=== PATIENT | male | born 1950 | race Hispanic/Latino ===

== ENCOUNTER 2017-08-08 05:51 | Emergency (ER) | payer MEDICARE, BC | END 2017-08-08 06:48 | disposition home or self-care (01) | LOC: ERS 05:51 | DX: L03.115 Cellulitis of right lower limb (principal); E11.22 Type 2 diabetes mellitus with diabetic chronic kidney disease; I12.0 Hypertensive chronic kidney disease with stage 5 chronic kidney disease or end stage renal disease; N18.6 End stage renal disease; Z87.891 Personal history of nicotine dependence; Z79.82 Long term (current) use of aspirin; Z79.899 Other long term (current) drug therapy | CPT/HCPCS: 99283 ==

== ENCOUNTER 2017-09-25 13:13 | Outpatient (CLI) | payer MEDICARE, BC ==
--- NOTE | 2017-09-25 18:36 | HP ---
DATE OF SERVICE: 09/25/2017 HISTORY OF PRESENT ILLNESS: Mr. Orlando Linares is a very pleasant 66-year-old gentleman who presen ts to the Wound Center for evaluation of an ulceration of the right medial lower leg. The patient is accompanied by his today. The patient was previously seen in the Wound Center in 2004 for righ t and left foot wounds. The patient states that the wound of the right medial lower leg has been pre sent for approximately two months. He states that 2 months ago while lifting a 5-gallon bucket of so il while working in the garden, he inadvertently let the bucket go scraping his right medial lower le g. He states that he inadvertently let the bucket go when the bucket became too heavy. The patient states that he cleaned the ulceration with hydrogen peroxide and then applied an antibiotic ointment. He states that the wound of his right medial lower leg became erythematous. He states that the wou nd appeared to be associated with an infectious process and he had swelling of his right lower leg. The patient states that at this time, he was seen in the Emergency Department and treated with a cour se of p.o. antibiotics for cellulitis. The patient states that 1 week later, he saw Dr. Lee and ar rangements were made for the administration of IV antibiotics at dialysis. The patient states that roosevelt isabel completed the course of IV antibiotics at dialysis approximately 3 weeks ago. The patient states t hat he was seen by Dr. Covarrubias on 09/04/2017 and at this time referred to the Wound Center for further evaluation and treatment. PAST MEDICAL HISTORY: 1. End-stage renal disease. 2. Coronary artery disease. 3. Diabetes mellitus. 4. Hypertension. 5. Secondary hyperparathyroidism. 6. History of gastric ulcer. 7. Chronic anemia. 8. Colon polyps. 9. Peripheral vascular disease. PAST SURGICAL HISTORY: 1. Left and right eye surgery for retinal detachment and diabetic retinopathy. 2. Dialysis access procedures. 3. Right eye cataract surgery. 4. Left knee surgery. 5. I&D of buttock abscess. 6. Left fifth partial ray amputation on 04/28/2009. 7. Right fifth toe ray amputation on 05/10/2009. 8. 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 MEDICATIONS: 1. Coreg. 2. Zoloft. 3. Pravastatin. 4. Plavix. 5. Clonidine. 6. Aspirin. 7. Vision Formula. 8. Coenzyme Q10. 9. Fish oil. 10. Renvela. 11. Fosrenol. ALLERGIES: VANCOMYCIN. SOCIAL HISTORY: Significant for tobacco use of 1/2 of a pack of cigarettes per day for 4-5 years. T he patient states that he stopped smoking 35-40 years ago. The patient admits to the social consumpt ion of alcohol. FAMILY HISTORY: Significant for diabetes mellitus. The patient states that his brother, sister and father were diagnosed with diabetes mellitus. Family history is negative for coronary artery disease . PHYSICAL EXAMINATION: VITAL SIGNS: Temperature 98.1, pulse 66, respirations 19, blood pressure 172/83. Accu-Chek 102. GENERAL: A 66-year-old gentleman lying on table in examination room in no acute distress. HEENT: Normocephalic, atraumatic. NECK: No nuchal rigidity. CHEST: Clear to auscultation. CARDIAC: Regular rate and rhythm. ABDOMEN: Soft. EXTREMITIES: An ulceration of the right medial lower leg is present which measures approximately 1.2 x 1.5 cm. Granulation tissue is present within the wound margins. Necrotic and nonviable tissue pr esent within the wound margins was debrided with an excisional full-thickness debridement with the us e of a curette and scissors. No purulent drainage is associated with the wound. No erythema of the skin surrounding the wound is present. No maceration of the skin of the periwound is noted. A dorsa lis pedis pulse is palpable on the right. No significant edema of the right foot or lower leg is gris reciated on exam today. NEUROLOGIC: Grossly nonfocal. ASSESSMENT AND PLAN: 1. Chronic venous hypertension with ulceration. Silverlon, Webril, and 3M Coban 2-layer compression system will be applied to the ulceration today. The patient has been instructed to keep the matt lalo wrap applied in clinic today clean and dry intact until his followup visit in 1 week. No antibi otics will be prescribed today based upon the appearance of the wound. The patient and his unde rstand and are in agreement with the preceding treatment plan. 2. Diabetes mellitus. The patient's Accu-Chek in clinic today is 102. The patient has been told th at for optimal wound healing, his blood glucoses should remain below 150. 3. End-stage renal disease. 4. Coronary artery disease. 5. Hypertension. 6. Secondary hyperparathyroidism. 7. History of gastric ulcer. 8. Chronic anemia. 9. Colon polyps. 10. Peripheral vascular disease.
== END 2017-09-25 13:14 | disposition home or self-care (01) ==
LOC: WCC 13:13
PROVIDERS: ATTEND Family Medicine
DX: I87.311 Chronic venous hypertension (idiopathic) with ulcer of right lower extremity (principal); E11.622 Type 2 diabetes mellitus with other skin ulcer; L97.819 Non-pressure chronic ulcer of other part of right lower leg with unspecified severity; I12.0 Hypertensive chronic kidney disease with stage 5 chronic kidney disease or end stage renal disease; E11.22 Type 2 diabetes mellitus with diabetic chronic kidney disease; N18.6 End stage renal disease; I25.10 Atherosclerotic heart disease of native coronary artery without angina pectoris; N25.81 Secondary hyperparathyroidism of renal origin; D64.9 Anemia, unspecified; I73.9 Peripheral vascular disease, unspecified; K63.5 Polyp of colon; F17.210 Nicotine dependence, cigarettes, uncomplicated; Z87.19 Personal history of other diseases of the digestive system
CPT/HCPCS: 36416

== ENCOUNTER 2017-10-02 14:25 | Outpatient (CLI) | payer MEDICARE, BC ==
--- NOTE | 2017-10-02 15:52 | PRG ---
DATE OF SERVICE: 10/02/2017 HISTORY: Mr. Orlando Linares is a very pleasant 66-year-old gentleman who presents to the [facility] for evaluation of an ulceration of the right medial lower leg. The patient previously stated payam t the wound of the right medial lower leg had been present for approximately 2 months. Two months pr ior to his visit on 09/25/2017with, while lifting a 5-gallon bucket of soil while working in the [employer], he inadvertently let the bucket go scraping his right medial lower leg. He stated that he inadve rtently let the bucket ago when the back became too heavy. The patient stated that he cleaned the ul ceration with hydrogen peroxide and then applied an antibiotic ointment. He stated that the wound of his right medial lower leg became erythematous. He stated that the wound appeared to be associated with an infectious process and he had swelling of his right lower leg. He stated that at this time h e was seen in the Emergency Department and treated with a course of p.o. antibiotics for cellulitis. The patient stated that one week later, he saw Dr. Lee and arrangements were made for the administ ration of IV antibiotics at dialysis. The patient stated that he completed course of IV antibiotics at dialysis approximately 3 weeks prior to his visit on 09/25/2017. The patient stated that he was s een by Dr. Covarrubias on 09/04/2017 and at this time referred to the Wound Center for further evaluation a nd treatment. After being seen in the Wound Center, Silverlon, Webril, and 3M Coban 2 layer compress ion system were applied to the ulceration. PHYSICAL EXAMINATION: VITAL SIGNS: Temperature 97.5, pulse 69, respirations 20, blood pressure 152/65. Accu-Chek 110. EXTREMITIES: An ulceration of the right medial lower leg is present which measures approximately 1.2 x 0.9 cm. The dimensions of the wound at the time of the patient's visit on 09/25/2017 were approxi mately 1.2 x 1.5 cm. Granulation tissue is present within the wound margins. Necrotic and nonviable tissue present within the wound margins was debrided with an excisional full-thickness debridement w ith the use of a curette and scissors. No purulent drainage is associated with the wound. No erythe ma of the skin surrounding the wound is present. No maceration of the skin of the periwound is noted . A dorsalis pedis pulse is palpable on the right. No significant edema of the right foot or lower leg is appreciated on exam today. ASSESSMENT AND PLAN: 1. Chronic venous hypertension with ulceration, Silverlon, Webril, and 3M Coban 2-layer compression system will be applied to the ulceration again today. I will see Mr. Linares again in one week. 2. Diabetes mellitus. The patient's Accu-Chek in clinic today is 110. The patient has been reminde d that for optimal wound healing, his blood glucoses should remain below 150. 3. End-stage renal disease. 4. Coronary artery disease. 5. Hypertension. 6. Secondary hyperparathyroidism. 7. History of gastric ulcer. 8. Chronic anemia. 9. Colon polyps. 10. Peripheral vascular disease.
== END 2017-10-02 14:26 | disposition home or self-care (01) ==
LOC: WCC 14:25
PROVIDERS: ATTEND Family Medicine
DX: I87.311 Chronic venous hypertension (idiopathic) with ulcer of right lower extremity (principal); E11.622 Type 2 diabetes mellitus with other skin ulcer; L97.919 Non-pressure chronic ulcer of unspecified part of right lower leg with unspecified severity; E11.22 Type 2 diabetes mellitus with diabetic chronic kidney disease; I12.0 Hypertensive chronic kidney disease with stage 5 chronic kidney disease or end stage renal disease; N18.6 End stage renal disease; D63.1 Anemia in chronic kidney disease; I25.10 Atherosclerotic heart disease of native coronary artery without angina pectoris; N25.81 Secondary hyperparathyroidism of renal origin; I73.9 Peripheral vascular disease, unspecified; K63.5 Polyp of colon; Z87.11 Personal history of peptic ulcer disease
CPT/HCPCS: 11042; 36416

== ENCOUNTER 2017-10-09 14:32 | Outpatient (CLI) | payer MEDICARE, BC ==
--- NOTE | 2017-10-09 16:56 | PRG ---
DATE OF SERVICE: 10/09/2017 HISTORY: Mr. Stefan Linares is a very pleasant 66-year-old gentleman who presents to the Wound Cent er for evaluation of an ulceration of the right medial lower leg. The patient previously stated that the wound of the right medial lower leg had been present for approximately 2 months at the time of t he patient's initial presentation to the Wound Center. Apparently while lifting a 5-gallon bucket of soil while working in the garden, he inadvertently let the bucket go scraping his right medial lower leg when the bucket became too heavy. The patient stated that he cleansed the ulceration with hydro gen peroxide and then applied an antibiotic ointment. He stated that the wound of his right medial l ower leg became erythematous. He stated that the wound appeared to be associated with an infectious process and he had swelling of his right lower leg. He stated that at this time he was seen in the E mergency Department and treated with a course of p.o. antibiotics for cellulitis. The patient stated that one week later, he saw Dr. Lee and arrangements were made for the administration of IV antibi otics at dialysis. The patient stated that [facility] visit on 09[facility]. The patient stated that he was seen by Dr. Margarita boswell on 09/04/2017 and at this time referred to the Wound Center for further evaluation and treatment. After being seen in the Wound Center, Silverlon, Webril, and 3M Coban 2 layer compression system were applied to the ulceration, the patient has been receiving these dressing changes here in the Wound C enter on a weekly basis. PHYSICAL EXAMINATION: VITAL SIGNS: Temperature 98.1, pulse 68, respirations 19, blood pressure 115/57. Accu-Chek 118. EXTREMITIES: An ulceration of the right medial lower leg is present which measures approximately 1.0 x 0.7 cm. The dimensions of the wound at the time of the patient's visit on 10/02/2017 were approxi mately 1.2 x 0.9 cm. Granulation tissue is present within the wound margins. Necrotic and nonviable tissue present within the wound margins was debrided with an excisional full-thickness debridement w ith the use of a curette. No purulent drainage is associated with the wound. No erythema of the ski n surrounding the wound is present. No maceration of the skin of the periwound is noted. A dorsalis pedis pulse is palpable on the right. No significant edema of the right foot or lower leg is apprec iated on exam today. ASSESSMENT AND PLAN: 1. Chronic venous hypertension with ulceration, Silverlon, Webril, and 3M Coban 2-layer compression system will be applied to the ulceration again today. I will see Mr. Linares in one week. 2. Diabetes mellitus. The patient's Accu-Chek in clinic today is 118. The patient has been reminde d that for optimal wound healing, his blood glucoses should remain below 150. 3. End-stage renal disease. 4. Coronary artery disease. 5. Hypertension. 6. Secondary hyperparathyroidism. 7. History of gastric ulcer. 8. Chronic anemia. 9. Colon polyps. 10. Peripheral vascular disease.
== END 2017-10-09 14:33 | disposition home or self-care (01) ==
LOC: WCC 14:32
PROVIDERS: ATTEND Family Medicine
DX: I87.311 Chronic venous hypertension (idiopathic) with ulcer of right lower extremity (principal); E11.622 Type 2 diabetes mellitus with other skin ulcer; L97.219 Non-pressure chronic ulcer of right calf with unspecified severity; E11.22 Type 2 diabetes mellitus with diabetic chronic kidney disease; I12.0 Hypertensive chronic kidney disease with stage 5 chronic kidney disease or end stage renal disease; N18.6 End stage renal disease; I25.10 Atherosclerotic heart disease of native coronary artery without angina pectoris; N25.81 Secondary hyperparathyroidism of renal origin; D64.9 Anemia, unspecified; K63.5 Polyp of colon; I73.9 Peripheral vascular disease, unspecified; Z87.19 Personal history of other diseases of the digestive system
CPT/HCPCS: 29581; 36416

== ENCOUNTER 2017-10-16 11:34 | Outpatient (CLI) | payer MEDICARE, BC ==
--- NOTE | 2017-10-16 13:50 | PRG ---
DATE OF SERVICE: 10/16/2017 HISTORY: Mr. Stefan Linares is a very pleasant 66-year-old gentleman who presented to the Wound Ce nter for evaluation of an ulceration of the right medial lower leg. The patient is presently receivi ng dressing changes of Silverlon, Webril, and 3M Coban 2 layer compression system on a weekly basis h ere in the Wound Center. The patient has no complaints today. He denies any fever or chills. PHYSICAL EXAMINATION: VITAL SIGNS: Temperature 98.0, pulse 63, respirations 18, blood pressure 173/74. Accu-Chek 107. EXTREMITIES: An ulceration of the right medial lower leg is present which measures approximately 0.5 x 0.8 cm. The dimensions of the wound at the time of the patient's visit on 10/09/2017 were approxi mately 1.0 x 0.7 cm. Granulation tissue is present within the wound margins. Necrotic and nonviable tissue present within the wound margins was debrided with an excisional full-thickness debridement w ith the use of a curette. No purulent drainage is associated with the wound. No erythema of the ski n surrounding the wound is present. No maceration of the skin of the periwound is noted. No signifi cant edema of the right foot or lower leg is present on exam today. ASSESSMENT AND PLAN: 1. Chronic venous hypertension with ulceration. Promogran, Silverlon, Webril, and the 3M Coban 2-[place] compression system will be applied to the ulceration today. I will see Mr. Linares again in 1 week . 2. Diabetes mellitus. The patient's Accu-Chek in clinic today is 107. The patient has been reminde d that for optimal wound healing, his blood glucoses should remain below 150. 3. End-stage renal disease. 4. Coronary artery disease. 5. Hypertension. 6. Secondary hyperparathyroidism. 7. History of gastric ulcer. 8. Chronic anemia. 9. Colon polyps. 10. Peripheral vascular disease.
== END 2017-10-16 11:35 | disposition home or self-care (01) ==
LOC: WCC 11:34
PROVIDERS: ATTEND Family Medicine
DX: I87.311 Chronic venous hypertension (idiopathic) with ulcer of right lower extremity (principal); E11.622 Type 2 diabetes mellitus with other skin ulcer; E11.22 Type 2 diabetes mellitus with diabetic chronic kidney disease; E11.51 Type 2 diabetes mellitus with diabetic peripheral angiopathy without gangrene; I12.0 Hypertensive chronic kidney disease with stage 5 chronic kidney disease or end stage renal disease; N18.6 End stage renal disease; L97.819 Non-pressure chronic ulcer of other part of right lower leg with unspecified severity; I25.10 Atherosclerotic heart disease of native coronary artery without angina pectoris; N25.81 Secondary hyperparathyroidism of renal origin; D64.9 Anemia, unspecified; K63.5 Polyp of colon; Z87.11 Personal history of peptic ulcer disease
CPT/HCPCS: 11042; 36416

== ENCOUNTER 2017-10-21 12:53 | Outpatient (CLI) | payer OTHER | END 2017-10-21 12:54 | disposition home or self-care (01) | LOC: DTY/OP 12:53 | PROVIDERS: ATTEND Specialist | DX: Z01.818 Encounter for other preprocedural examination (principal); E66.01 Morbid (severe) obesity due to excess calories | CPT/HCPCS: 97802 ==

== ENCOUNTER 2017-10-23 14:28 | Outpatient (CLI) | payer MEDICARE, BC ==
--- NOTE | 2017-10-23 15:46 | PRG ---
DATE OF SERVICE: 10/23/2017 HISTORY: Mr. Stefan Linares is a very pleasant 66-year-old gentleman who presents to the [facility] for evaluation of an ulceration of the right medial lower leg. The patient has been receiving we ekly dressing changes of Silverlon, Webril, and 3M Coban 2 layer compression system here in the Wound Center. Mr. Linares also has no complaints today. He denies any fever or chills. PHYSICAL EXAMINATION: VITAL SIGNS: Temperature 98.2, pulse 72, respirations 23, blood pressure 139/65. Accu-Chek 111. EXTREMITIES: An ulceration of the right medial lower leg is present which measures approximately 1.0 x 0.5 cm. Nonviable tissue associated with the wound was debrided with an excisional partial-thickn ess debridement with the use of scissors and a curette. No purulent drainage is associated with the wound. No erythema of the skin surrounding the wound is present. No maceration of the skin of the p eriwound is noted. No significant edema of the right foot or lower leg is present on exam today. ASSESSMENT AND PLAN: 1. Chronic venous hypertension with ulceration. Webril and the 3M Coban two-layer compression syste m will be applied to the ulceration today. The ulceration has almost healed completely and Mr. Linares will be discharged from clinic today with followup on a p.r.n. basis. The patient has been instruct ed to discontinue the compression wrap in 1 week. The patient understands and is in agreement with t he preceding treatment plan. 2. Diabetes mellitus. The patient's Accu-Chek in clinic today is 111. The patient has been reminde d that for optimal wound healing, his blood glucoses should remain below 150. 3. End-stage renal disease. 4. Coronary artery disease. 5. Hypertension. 6. Secondary hyperparathyroidism. 7. History of gastric ulcer. 8. Chronic anemia. 9. Colon polyps. 10. Peripheral vascular disease.
== END 2017-10-23 14:29 | disposition home or self-care (01) ==
LOC: WCC 14:28
PROVIDERS: ATTEND Family Medicine
DX: I87.311 Chronic venous hypertension (idiopathic) with ulcer of right lower extremity (principal); E11.622 Type 2 diabetes mellitus with other skin ulcer; L97.919 Non-pressure chronic ulcer of unspecified part of right lower leg with unspecified severity; E11.22 Type 2 diabetes mellitus with diabetic chronic kidney disease; N18.6 End stage renal disease; I25.10 Atherosclerotic heart disease of native coronary artery without angina pectoris; I12.0 Hypertensive chronic kidney disease with stage 5 chronic kidney disease or end stage renal disease; N25.81 Secondary hyperparathyroidism of renal origin; D63.1 Anemia in chronic kidney disease; K63.5 Polyp of colon; E11.51 Type 2 diabetes mellitus with diabetic peripheral angiopathy without gangrene
CPT/HCPCS: 36416; 97597

== ENCOUNTER 2017-10-29 15:37 | Emergency (ER) | payer MEDICARE, BC, MEDICAID ==
--- NOTE | 2017-10-29 16:25 | RAD ---
PORTABLE CHEST ONE VIEW: 10/29/17 at 3:30 p.m. HISTORY: Bradycardia. FINDINGS/IMPRESSION: Comparison made with exam of 05/29/13. The heart is enlarged. The lungs are expanded without focal areas of consolidation, pneumothorax, fra nk pulmonary edema or pleural effusions. There is a right humeral head prosthesis. POS: OFF
--- NOTE | 2017-11-08 11:51 | EKG ---
Test Reason : Blood Pressure : / mmHG Vent. Rate : 065 BPM Atrial Rate : 065 BPM P-R Int : 000 ms QRS Dur : 166 ms QT Int : 480 ms P-R-T Axes : 000 066 001 degrees QTc Int : 499 ms Wide QRS rhythm Right bundle branch block Inferior infarct , age undetermined Abnormal ECG Confirmed by COLEEN PULIDO ([id number]), news copy editor BRITTANY GANDHI ([id number]) on 11/08/2017 11:51:27 AM Referred By: Confirmed By:COLEEN PULIDO
== END 2017-10-29 16:38 | disposition home or self-care (01) ==
LOC: ERS 15:37
DX: R00.1 Bradycardia, unspecified (principal); E11.9 Type 2 diabetes mellitus without complications; I10 Essential (primary) hypertension; N28.9 Disorder of kidney and ureter, unspecified; I25.10 Atherosclerotic heart disease of native coronary artery without angina pectoris; Z99.2 Dependence on renal dialysis; Z87.891 Personal history of nicotine dependence; Z79.82 Long term (current) use of aspirin; Z79.899 Other long term (current) drug therapy
CPT/HCPCS: 71045; 93005

== ENCOUNTER 2017-12-25 10:30 | Inpatient (IN) | payer MEDICARE, BC, MEDICAID ==
[2017-12-26 09:40] VITALS: BMI 38.4
[2017-12-30] MEDS ORDERED: Bupivacaine/Epinephrine 0.25% 30 ML VIAL ONE (06:31)
[2017-12-30] MEDS ORDERED: Scopolamine 1.5 mg/72 hour Patch ONE (06:45)
[2017-12-30] MEDS ORDERED: cefOXitin 2 GM VIAL ONE ×2 (06:45→09:40)
[2017-12-30] MEDS ORDERED: HYDROcodone/Acetaminophen 5/325 mg Tablet ONE (06:45)
[2017-12-30] MEDS ORDERED: Sodium Chloride 0.9% 100 ML ONE (06:45)
[2017-12-30] MEDS ORDERED: Midazolam HCl 2 mg/2 ml Vial ONE (07:26)
[2017-12-30] MEDS ORDERED: Fentanyl 100 MCG/2 ML VIAL ONE ×4 (07:26→13:10)
[2017-12-30] MEDS ORDERED: Rocuronium Bromide 50 MG/5 ML VIAL ONE (09:00)
[2017-12-30] MEDS ORDERED: Promethazine HCl 25 MG/ML VIAL SLOW IVP PRN (10:45)
[2017-12-30] MEDS ORDERED: Ondansetron HCl/PF 4 MG/2 ML Vial IVP PRN ×3 (10:45→14:35)
[2017-12-30] MEDS ORDERED: Promethazine HCl 25 MG/ML VIAL IM PRN ×3 (10:45→14:35)
[2017-12-30] MEDS ORDERED: SUGAMMADEX SODIUM 200 MG/2 ML VIAL ONE (10:54)
[2017-12-30] MEDS ORDERED: Glycopyrrolate 0.2 MG/ML 5 ML SYRINGE ONE (13:23)
[2017-12-30] MEDS ORDERED: ePHEDrine/0.9% NaCl/PF SYRINGE 50 mg/10 ml ONE (13:23)
[2017-12-30] MEDS ORDERED: PROPOFOL 200 MG/20 ML VIAL ONE (13:23)
[2017-12-30] MEDS ORDERED: Dextrose 50% Abboject 50 ML SYRINGE SLOW IVP PRN (13:51)
[2017-12-30] MEDS ORDERED: Morphine 4 MG/ML VIAL SLOW IVP PRN (13:51)
[2017-12-30] MEDS ORDERED: Dextrose 5% in Water 1,000 ML IV PRN (13:51)
[2017-12-30] MEDS ORDERED: diphenhydrAMINE 50 MG/ML VIAL IVP PRN ×2 (13:51→14:35)
[2017-12-30] MEDS ORDERED: Insulin Regular 300 UNITS/3 ML VIAL SC PRN (13:51)
[2017-12-30] MEDS ORDERED: hydrALAZINE 20 MG/ML VIAL SLOW IVP PRN (13:51)
[2017-12-30] MEDS ORDERED: Pantoprazole 40 MG VIAL IVP SCH (14:00)
[2017-12-30] MEDS: Acetaminophen 1,000 MG in Premix Bag 1 BAG IVPB SCH ×2 (14:12→20:05)
[2017-12-30] MEDS: Sodium Chloride 0.9% 1,000 ML IV SCH (14:12)
[2017-12-30] MEDS ORDERED: diphenhydrAMINE 50 MG/ML VIAL IM PRN (14:35)
[2017-12-30] MEDS ORDERED: Naloxone HCl 0.4 mg/ml Vial IV PRN (14:35)
[2017-12-30] MEDS ORDERED: Zolpidem Tartrate 5 MG TAB PO PRN (14:35)
[2017-12-30] MEDS ORDERED: diphenhydrAMINE 25 MG CAP PO PRN (14:35)
[2017-12-30] MEDS ORDERED: Hydrocodone-Acetamin 15 ML UDCUP PO PRN (14:39)
[2017-12-30] MEDS ORDERED: Communication Order-Pharmacy FS SCH (14:45)
[2017-12-30] MEDS: HYDROmorphone 10 mg/100 ml CADD IVPB PRN (16:29)
[2017-12-30] MEDS: Pravastatin Sodium 20 MG TAB PO SCH (20:03)
[2017-12-30] MEDS: Carvedilol 6.25 MG TAB PO SCH (20:03)
[2017-12-30] MEDS: cloNIDine 0.2 MG TAB PO SCH (20:05)
[2017-12-30] MEDS: Heparin 5,000 UNITS/ML VIAL SC SCH (20:06)
[2017-12-31] MEDS: Sodium Chloride 0.9% 1,000 ML IV SCH ×3 (01:29→16:47)
[2017-12-31] MEDS: Acetaminophen 1,000 MG in Premix Bag 1 BAG IVPB SCH ×2 (01:29→13:51)
--- NOTE | 2017-12-31 03:11 | OP ---
DATE OF OPERATION: 12/30/2017 PREOPERATIVE DIAGNOSIS: Morbid obesity. POSTOPERATIVE DIAGNOSIS: Morbid obesity with extensive intra-abdominal adhesions and an enterotomy. OPERATION PERFORMED: Attempted laparoscopy with conversion to a laparotomy, extensive lysis of adhes ions, repair of enterotomy, placement of intra-abdominal drain. SURGEON: Son Bonilla M.D. ANESTHESIA: General endotracheal. INDICATIONS: Patient is a 67-year-old male. He has a history of end-stage renal disease. He presented requesting consideration of bariatric surgery. He had a prior midline laparotomy incisi on. This was allegedly from removal of an intra-abdominal cyst. Plan was to obtain a laparoscopic a ccess away from the midline to discern the extent of the adhesions. The patient desired weight loss surgery so that he could achieve a weight compatible with an eventual kidney transplant. DESCRIPTION OF OPERATION: Informed consent was obtained. The patient was taken to the operating marv m where general endotracheal anesthesia was obtained with the patient in supine position. Abdomen wa s prepped with ChloraPrep and draped in sterile fashion. Local anesthetic was infiltrated using 0.25 % Marcaine with epinephrine. Initial 12-mm right paramedian incision was created. I attempted to pa ss the Veress needle through this incision into the abdominal cavity and could not obtain access. I then attempted in the far lateral right abdomen and again could not find a clear space within the abd omen through which I could obtain a pneumoperitoneum. I decided to try on the left side and made a 5 mm far left lateral incision and could not obtain a pneumoperitoneum to that either. I then decided to cut down to the abdomen through the left paramedian incision. Muscle splitting was used to divid e the anterior and posterior fascia. I quickly recognized that there were dense adhesions involving the small bowel immediately under the fascia. At this point, I decided that I needed to convert to a laparotomy. A midline abdominal incision was created. Prior scar was excised. Dissection was carried down to th e abdominal wall. It was difficult to discern where the exact midline was. I was able to divide the fascia anterior and posterior that indicated that I was off the midline. Dissection was carried darrick n to the abdominal cavity. As I did this, a small enterotomy was created in the segment of small int estine. This was immediately tagged with a suture and the operation was continued. I attempted to d issect on both sides of midline in order to obtain access to have a clear space. There was a brief a franco of clear space on the left abdomen, but this was sealed off on every side. I could not gain acce ss to the upper abdomen. A meticulous dissection was carried out and I ensured that there was no inj ury to any further segments of bowel. I was able to identify the liver and thought that if I could d issect around the liver and get to the stomach that this area might not be so involved with adhesions . Unfortunately, the liver was encased with adhesions on all sides and I never could clearly identif y the stomach. It was at about this point that I decided that further attempts at mobilizing the int ra-abdominal structures was far more likely to be dangerous for Mr. Linares then the chances where that I was going to help him with the surgery. We decided to abandon thoughts of completing gastrectomy. I obtained meticulous hemostasis in all areas had been dissected. I returned my attention to the seg ment of intestine that had been injured. This was unfortunately encased in adhesions in every direct ion. I spent several minutes mobilizing this one loop of intestine. There was what appeared to be a partial thickness injury with the same segment of small intestine about 4-5 cm away from the enterot paradise. I repaired this with a series of interrupted 3-0 silk sutures although there was not a full thi ckness injury at the secondary location. I then repaired the enterotomy and also with a series of in terrupted sutures of 3-0 silk. I ensured that there was adequate fascia circumferentially to allow appropriate closure. I inspected to the far left side to the area where I had dissected down through the fascia. There had been no i njury to any intra-abdominal structures at this location. I closed the posterior fascia from within the abdomen using a running suture of #1 PDS. I then closed the anterior fascia at that location wit h a running suture of 0 PDS. I identified the far left lateral incision site and found no evidence of intra-abdominal injury. I c ould not safely dissect off to the right hand side to inspect at those sites. I placed a #19 round fluted drain and brought this out inferiorly to the left and secured with a 3-0 nylon suture. I placed Seprafilm underneath the fascia and closed the fascia with a running suture o f loop #1 PDS. This closure was a difficult closure as the patient's tissue was a poor quality secon cristino to prior surgery. Before closing, I changed gown and glove to my collections assistant. The abdomen was irrigated with 2 liters of irrigant all of which was aspirated. After the fascia was closed, I irrigated the wound with anothe r liter of irrigant. The space was approximated in the subcutaneous tissue with a series of int errupted sutures of 3-0 Vicryl. Skin edges were approximated in all areas with skin kael. Dry ga uze dressing was applied over the incision sites as well as the drain exit site. There were no compl ications during the course of the operation. The conversion from a laparoscopy to a laparotomy was a ppropriate and done on a timely fashion. The single enterotomy that occurred during the dissection o f these dense adhesions was fortunate that there was only one enterotomy and it was recognized and re paired expeditiously. The patient was taken to recovery room in stable condition.
[2017-12-31 06:04] LABS: #Eosinphils 0.1 thou/uL (0.0-0.7); #Lymphocytes 0.8 thou/uL (1.20-3.40); #Monocytes 0.6 thou/uL (0.11-0.59); #Neutrophils 5.6 thou/uL (1.40-6.50); %Basophils 0.3 % (0.0-1.0); %Eosinophils 0.9 % (0.0-10.0); %Lymphocytes 10.9 % (21.0-51.0); %Monocytes 8.8 % (0.0-10.0); %Neutrophils 79.1 % (42.0-75.0); Hemoglobin 11.1 g/dL (14.0-18.0); Mean Corpuscular HGB CONC 31.2 g/dL (32.0-36.0); Mean Corpuscular Hemoglobin 31.7 pg (27.0-31.0); Mean Platelet Volume 8.8 fL (7.4-10.4); Platelet Count 146 thou/uL (130-400); RBC Distribution Width 14.7 % (11.5-14.5); White Blood Cell (WBC) Count 7.1 thou/uL (4.8-10.8)
[2017-12-31 06:19] LABS: Anion Gap 15 mmol/L (10-20); BUN (Urea Nitrogen) 34 mg/dL (8.4-25.7); Calc. Creatinine Clearance 19 mL/min (70-130); Calcium 8.2 mg/dL (7.8-10.44); Carbon Dioxide 27 mmol/L (23-31); Chloride 96 mmol/L (98-107); Estimated GFR-MDRD 9; Glucose 95 mg/dL (80-115); Potassium 4.7 mmol/L (3.5-5.1); Sodium 133 mmol/L (136-145)
--- NOTE | 2017-12-31 09:38 | CON ---
DATE OF CONSULTATION: 12/31/2017 HISTORY OF PRESENT ILLNESS: Mr. Linares is a 67-year-old white male with known history of ESRD - [facility] on maintenance hemodialysis, morbid obesity, and an attempted laparoscopy with conversion to lap arotomy was done. Extensive lysis of adhesions and repair of enterotomy was done. Placement of intr aabdominal drain was also done. The original plan was for the patient to undergo bariatric surgery, but due to findings of excess adh esions this was placed on hold. An extensive lysis of adhesions was done. He is doing better this m orning. He voices no new complaint except for mild postop pain. I am currently at the dialysis supe rvising his hemodialysis. He voices no chest pain, no shortness of breath. REVIEW OF SYSTEMS: Positive for postop pain, no chest pain or shortness of breath, no nausea, no vom iting, no diarrhea, no productive cough, no fever or chills, no syncopal episode, no gross hematuria, no dysuria, no urinary frequency. MEDICATIONS: Coreg 9.375 mg p.o. b.i.d., DuoNeb q.4 hours p.r.n., heparin 5000 units subcutaneously b.i.d., Humulin R sliding scale, Narcan p.r.n., Zofran 4 mg IV every 8 hours p.r.n., pravastatin 20 m g tab at bedtime, Zoloft 50 mg at bedtime, Ambien 5 mg at bedtime p.r.n. PAST MEDICAL HISTORY: 1. ESRD from presumed diabetic nephropathy. 2. Type 2 diabetes mellitus. 3. Status post congestive heart failure. 4. Hyperlipidemia. 5. GERD. 6. Peripheral vascular disease. 7. Status post osteomyelitis. 8. Depression. 9. Secondary hyperparathyroidism. 10. Coronary artery disease. 11. History of colonic polyp. 12. Hypertension. PAST SURGICAL HISTORY: 1. Recently status post exploratory laparotomy. 2. Status post addition of intraabdominal lysis. 3. Status post abdominal catheter placement for drainage of ascites. 4. Status post PD catheter placement with subsequent removal - failed PD. 5. Status post cardiac catheterization. 6. Status post I&D of abscess of buttocks. 7. Status post left knee surgery for torn ligament. 8. Status post left toe amputation with metatarsal amputation. 9. Status post upper and lower GI endoscopy. 10. Status post AV fistula placement. 11. Status post cuffed hemodialysis catheter placement. 12. Status post laser therapy for diabetic retinopathy. SOCIAL HISTORY: The patient is a retired real estate paralegal. , lives with his , meg schumacher. Status post blood transfusion. Education; 3 years of college. No IV drug abuse. Smoked f or 8 years, one pack a day. Sedentary lifestyle. FAMILY HISTORY: Positive family history of ESRD. Father was on dialysis. ALLERGIES: None. TRAUMA: Status post left knee injury. IMMUNIZATIONS: Up to date. HOSPITALIZATIONS: Please see past medical history. PHYSICAL EXAMINATION: VITAL SIGNS: Blood pressure is 123/71, heart rate 62, respiratory rate 16, temperature 98.7, pulse o x 97%. GENERAL: Awake, alert, comfortable, sitting, not in distress, morbidly obese. SKIN: Adequate turgor. HEENT: Pinkish conjunctivae, anicteric sclerae. NECK: No neck mass, no carotid bruits, no JVD. CHEST: No deformities. LUNGS: Clear breath sounds, no wheezing, no crackles. HEART: Normal sinus rhythm. No murmur, no gallops or rubs. ABDOMEN: Globular, soft, nontender, no masses. Positive for surgical wound. EXTREMITIES: No edema, no deformities. NEUROLOGIC: Awake, oriented to 3 spheres. Moving all extremities. No tremors, no asterixis, no clement phuc. LABORATORY: 12/31/2017 - White count 7.1, hemoglobin 11.1. Sodium 133, potassium 4.7, chloride 96, carbon dioxide 27, BUN 34, creatinine 6.36, glucose 95, calcium 8.2. ASSESSMENT AND PLAN: 1. End-stage renal disease, stable. We will continue current hemodialysis regimen. My plan is to d o a 4-hour hemodialysis with this patient removing fluid only as tolerated. Due to the recent surger y, no heparin will be used with the dialysis. 2. Morbid obesity, attempted bariatric surgery was not done due to multiple adhesions intra-abdomina lly. Extensive lysis was done by the surgeon. He is doing well postop. Agree with current management.
[2017-12-31] MEDS ORDERED: Hydrocodone-Acetamin 15 ML UDCUP PO PRN (12:00)
[2017-12-31] MEDS: Carvedilol 6.25 MG TAB PO SCH ×2 (13:51→21:11)
[2017-12-31] MEDS: cloNIDine 0.2 MG TAB PO SCH ×2 (13:51→21:12)
[2017-12-31] MEDS: Heparin 5,000 UNITS/ML VIAL SC SCH ×2 (13:51→21:11)
[2017-12-31] MEDS: Pantoprazole 40 MG VIAL IVP SCH (14:13)
[2017-12-31] MEDS: Pravastatin Sodium 20 MG TAB PO SCH (21:12)
[2018-01-01] MEDS: HYDROmorphone 10 mg/100 ml CADD IVPB PRN (05:52)
[2018-01-01] MEDS: Sodium Chloride 0.9% 1,000 ML IV SCH ×3 (05:57→13:20)
[2018-01-01] MEDS: Pantoprazole 40 MG VIAL IVP SCH (08:40)
[2018-01-01] MEDS: Heparin 5,000 UNITS/ML VIAL SC SCH ×2 (08:41→20:17)
[2018-01-01] MEDS: cloNIDine 0.2 MG TAB PO SCH ×2 (08:47→20:19)
[2018-01-01] MEDS: Carvedilol 6.25 MG TAB PO SCH ×2 (08:48→20:18)
[2018-01-01 11:51] LABS: #Basophils 0.1 thou/uL (0.0-0.2); #Eosinphils 0.1 thou/uL (0.0-0.7); #Lymphocytes 1.1 thou/uL (1.20-3.40); #Monocytes 1.1 thou/uL (0.11-0.59); #Neutrophils 6.4 thou/uL (1.40-6.50); %Basophils 0.7 % (0.0-1.0); %Eosinophils 0.6 % (0.0-10.0); %Monocytes 12.4 % (0.0-10.0); %Neutrophils 73.3 % (42.0-75.0); Hemoglobin 10.5 g/dL (14.0-18.0); Mean Corpuscular HGB CONC 30.6 g/dL (32.0-36.0); Mean Corpuscular Hemoglobin 31.3 pg (27.0-31.0); Mean Platelet Volume 8.6 fL (7.4-10.4); Platelet Count 139 thou/uL (130-400); RBC Distribution Width 14.4 % (11.5-14.5); Red Blood Cell (RBC) Count 3.37 mill/uL (4.70-6.10); White Blood Cell (WBC) Count 8.8 thou/uL (4.8-10.8)
[2018-01-01 12:10] LABS: Anion Gap 17 mmol/L (10-20); BUN (Urea Nitrogen) 22 mg/dL (8.4-25.7); Calc. Creatinine Clearance 24 mL/min (70-130); Calcium 8.5 mg/dL (7.8-10.44); Carbon Dioxide 24 mmol/L (23-31); Chloride 97 mmol/L (98-107); Estimated GFR-MDRD 11; Glucose 115 mg/dL (80-115); Sodium 134 mmol/L (136-145)
--- NOTE | 2018-01-01 13:10 | PRG ---
DATE OF SERVICE: 01/01/2018 Mr. Linares is postoperative day 2 following attempted laparoscopy with conversion to laparotomy, lysis of adhesions, and repair of an enterotomy. The initial intent with this surgery was a sleeve gastre ctomy, but this was not felt to be safe to proceed with. He is continuing to do well since surgery. He notes that his pain is significantly improved. He ariel erated dialysis yesterday. He did fall once yesterday while walking, but this is likely secondary to changes after his dialysis. He notes that he is tolerating his liquid diet uneventfully today. His pain medication utilization is much less. PHYSICAL EXAMINATION: VITAL SIGNS: He is afebrile, pulse is 63, blood pressure is 97/60. LUNGS: Clear to auscultation bilaterally. ABDOMEN: Soft. His midline incision is healing nicely. His drain in the left lower quadrant is earnest ining appropriate serosanguineous fluid. Bowel sounds are present and normoactive. LABORATORY STUDIES: His CBC reveals a white blood cell count of 8.8 with hemoglobin of 10.5, platele t count is stable at 139. Chemistry profile reveals minor electrolyte abnormalities. His creatinine is 5.09 down from 6.36 yesterday. ASSESSMENT: He is doing well following laparotomy. He has no evidence of any problems or complicati ons. I will advance his diet to a full liquid diet today. I would recommend continued observation u ntil at least tomorrow. If he appears stable without problems overnight then I would anticipate disc harge tomorrow.
[2018-01-01] MEDS: Pravastatin Sodium 20 MG TAB PO SCH (20:18)
[2018-01-02] MEDS: Pantoprazole 40 MG VIAL IVP SCH (10:00)
[2018-01-02] MEDS: Heparin 5,000 UNITS/ML VIAL SC SCH ×2 (10:00→21:34)
[2018-01-02] MEDS: Carvedilol 6.25 MG TAB PO SCH ×2 (13:18→19:57)
[2018-01-02] MEDS: cloNIDine 0.2 MG TAB PO SCH (13:19)
[2018-01-02] MEDS: Sodium Chloride 0.9% 1,000 ML IV SCH (13:20)
--- NOTE | 2018-01-02 13:44 | ULT ---
CAROTID DOPPLER: Ultrasound Doppler study is performed of the extracranial carotid arteries. Color Doppler with spect ral analysis and velocity recordings obtained. INDICATION: Dizziness. FINDINGS: No significant echogenic plaque seen with ultrasound. The right internal carotid and common carotid artery velocities are within normal range. The left internal carotid artery velocity is increased at 144 cm/s. Vertebrals show antegrade flow. IMPRESSION: Increased velocities in the left internal carotid artery. Recommend correlation with CT angio study of neck. POS: TOYIN
[2018-01-02] MEDS ORDERED: Iopamidol 370 76% 100 ML VIAL ONE (15:05)
--- NOTE | 2018-01-02 16:16 | CT ---
CT ANGIO NECK: Multiple axial tomograms were obtained through the neck following angio protocol with multiplanar rec onstruction and 3D post processing. INDICATION: Carotid Doppler study revealed increased velocities in the left internal carotid artery. FINDINGS: There is no evidence of stenosis at the origin of the arch vessels. Right common carotid unremarkable. Mild atherosclerotic changes at the right bulb. Right ICA is tor tuous but is patent and shows no stenosis or atherosclerotic change. The left common carotid is unremarkable with no significant atherosclerotic change. The left bulb shows mild atherosclerotic change. the left internal carotid artery is very tortuous j ust beyond its origin and this probably explains the increased velocity seen on ultrasound. There is no evidence of significant atherosclerotic change and there is no evidence of stenosis in the left i nternal carotid artery. Vertebral arteries are patent. Basilar artery is visualized. Soft tissues unremarkable. Degenerative changes in the cervical spine. Paranasal sinuses are well aerated. IMPRESSION: Mild atherosclerotic change at both proximal internal carotid arteries; however, no significant steno sis. The left internal carotid artery is very tortuous just beyond its origin and this would explain the increased velocities noted on ultrasound. POS: TOYIN
--- NOTE | 2018-01-02 18:34 | PRG ---
DATE OF SERVICE: 01/02/2018 SUBJECTIVE: Mr. Linares is a 67-year-old white male followed by the [facility] for his ESRD - on ma intenance hemodialysis. The patient has been having hypotensive episodes. For this reason, we will adjust his blood pressure meds. In addition, due to the possibility of significant carotid artery di sease, he underwent CT angio of the neck which showed no significant stenosis. He is undergoing hemo dialysis today. We are minimizing fluid removal due to the decreased blood pressure. The patient de nies any chest pain or shortness of breath. OBJECTIVE: VITAL SIGNS: Blood pressure is 109/56, heart rate 68, respiratory rate 18, temperature 98, pulse ox 95%. GENERAL: Awake, alert, comfortable, not in distress, obese. SKIN: Adequate turgor. HEENT: Pinkish conjunctivae, anicteric sclerae. NECK: No neck mass, no carotid bruits, no JVD. CHEST: No deformities. LUNGS: Clear breath sounds. HEART: Normal sinus rhythm. No murmur, no gallops, no rubs. ABDOMEN: Globular, soft, nontender, no masses. EXTREMITIES: No edema, no deformities. LABORATORY: Of 01/02/2018, showed a glucose of 153. On 01/01/2018, BUN 22, creatinine 5.09, potassi um 4. PLAN: 1. End-stage renal disease, stable. Continue current Friday, Friday, Friday dialysis. Minimal f luid removal due to the decreased blood pressure. 2. Hypotension - decrease clonidine from 0.2 to 0.1 tab b.i.d. We will continue current low dose ca rvedilol. 3. Status post exploratory laparotomy, stable. Surgery is following. Recheck base met and CBC in a.m.
[2018-01-02] MEDS: cloNIDine 0.1 MG TAB PO SCH (19:57)
[2018-01-02] MEDS: Pravastatin Sodium 20 MG TAB PO SCH (21:35)
--- NOTE | 2018-01-03 00:58 | DIS ---
DATE OF ADMISSION: 12/30/2017 DATE OF DISCHARGE: 01/02/2018 ADMISSION DIAGNOSIS: Morbid obesity. DISCHARGE DIAGNOSIS: Morbid obesity with extensive intra-abdominal adhesions. OPERATION PERFORMED: Attempted laparoscopic sleeve gastrectomy with conversion to a laparotomy, repa ir of an enterotomy, extensive lysis of adhesions, and eventual closure without performing any bariat jose luis surgery. ADMISSION HISTORY: The patient is a morbidly obese 67-year-old male. He tells me that he h ad previously weighed about 400 pounds, but he currently weighs about 260 pounds. He would like to g et down to a weight that is compatible with having a kidney transplant. He presented to see me for t hat purpose. Following preoperative evaluation and education, he was brought into the hospital at th is time for a planned laparoscopic sleeve gastrectomy. He was recognized to have a midline laparotom y incision, but it was hoped that would be able to work around any adhesions associated with this. HOSPITAL COURSE: On the day of admission, he presented to the hospital where laparoscopy was attempt ed. I attempted entry into his abdomen in 4 separate locations and was unable to obtain any form of a pneumoperitoneum. I cut down on one of the incisions in the left upper abdomen and immediately enc ountered dense adhesions that prohibited any further access. I decided, therefore, to convert to a l aparotomy through a midline incision. I would hope that time to be able to check for any possible in jury that may have occurred while attempting access and if possible to proceed with the sleeve gastre ctomy depend upon the extent of the nature of the adhesions. His adhesions were so dense that it made further dissection prohibitive. I was able to identify the liver, but in spite of working on adhesions for an estimated hour and a half to 2 hours, I never actu ally visualized the stomach. There was a single enterotomy created during the surgery and this was r epaired. There was no spillage of bowel contents. The patient was closed without performing any bariatric surgery. He really had an unremarkable posto perative course. He was initially started on clear liquids and advance to full liquids and he tolera theresa these uneventfully. Dr. Madden, his air drier machine operator, saw him to continue hemodialysis. His surgery wa s performed on Friday and he ended up having dialysis on Friday and Friday while in the hospital. On a couple of occasions while he was in the hospital. He had episodes where he was essentially unre sponsive and could not speak to his family members or with the nursing staff. This seemed to resolve relatively quickly on both occasions. He was not hypoglycemic and he has no history of seizure diso rder. His blood pressure was low at these times with a systolic in approximately 80. I obtained a CT duplex scan followed by CT angiography today to rule out any carotid disease might be contributed to his episodes of unresponsiveness and the ultrasound revealed a segment of high flow, but the angiography demonstrated no significant stenosis. I spoke with his air drier machine operator, Dr. Madden, who adjusted his antihypertensive medication, decrease in his clonidine from 0.2 mg b.i.d. down to 0.1 mg b.i.d. The patient is to continue taking his current do se of carvedilol, which is 9.375 mg b.i.d. The patient complains of no pain. He has been hemodynamically stable aside from these couple of epis odes. His incision is healing nicely. I have placed a drain at the end of the surgery and this neve r drained anything significant, so it is to be removed today prior to his discharge. Appears stable for discharge. He has been tolerating his diet and having regular bowel movements. Drain output is negligible. I, therefore, discharge him home today. He says he requires no prescription pain medica tion. I will see him back in my office in 10-14 days to remove his kael.
[2018-01-03 05:45] LABS: #Eosinphils 0.1 thou/uL (0.0-0.7); #Lymphocytes 0.8 thou/uL (1.20-3.40); #Monocytes 0.7 thou/uL (0.11-0.59); #Neutrophils 4.8 thou/uL (1.40-6.50); %Basophils 0.4 % (0.0-1.0); %Eosinophils 2.1 % (0.0-10.0); %Lymphocytes 12.7 % (21.0-51.0); %Monocytes 10.4 % (0.0-10.0); %Neutrophils 74.5 % (42.0-75.0); Hemoglobin 10.1 g/dL (14.0-18.0); Mean Corpuscular HGB CONC 31.6 g/dL (32.0-36.0); Mean Corpuscular Hemoglobin 32.1 pg (27.0-31.0); Mean Platelet Volume 8.5 fL (7.4-10.4); Platelet Count 187 thou/uL (130-400); RBC Distribution Width 14.2 % (11.5-14.5); Red Blood Cell (RBC) Count 3.15 mill/uL (4.70-6.10); White Blood Cell (WBC) Count 6.4 thou/uL (4.8-10.8)
[2018-01-03 06:06] LABS: Anion Gap 15 mmol/L (10-20); BUN (Urea Nitrogen) 16 mg/dL (8.4-25.7); Calc. Creatinine Clearance 29 mL/min (70-130); Calcium 8.8 mg/dL (7.8-10.44); Carbon Dioxide 25 mmol/L (23-31); Chloride 99 mmol/L (98-107); Estimated GFR-MDRD 14; Glucose 129 mg/dL (80-115); Potassium 3.7 mmol/L (3.5-5.1); Sodium 135 mmol/L (136-145)
[2018-01-03] MEDS: Sodium Chloride 0.9% 1,000 ML IV SCH (07:34)
[2018-01-03] MEDS: cloNIDine 0.1 MG TAB PO SCH (08:13)
[2018-01-03] MEDS: Carvedilol 6.25 MG TAB PO SCH (08:13)
[2018-01-03] MEDS: Pantoprazole 40 MG VIAL IVP SCH (08:14)
[2018-01-03] MEDS: Heparin 5,000 UNITS/ML VIAL SC SCH (08:14)
[2018-01-03 08:16] VITALS: BP 151/77; TEMP 98
== END 2018-01-03 10:28 | disposition home or self-care (01) | DRG 981 ==
LOC: SURG A 12-30 06:02
PROVIDERS: ADMIT Specialist; ATTEND Specialist
PROC: 0DN80ZZ Release Small Intestine, Open Approach (ICD-10-PCS; principal; 2017-12-31)
PROC: 0DQ80ZZ Repair Small Intestine, Open Approach (ICD-10-PCS; 2017-12-31)
PROC: 5A1D70Z Performance of Urinary Filtration, Intermittent, Less than 6 Hours Per Day (ICD-10-PCS; 2017-12-31)
PROC: 5A1D70Z Performance of Urinary Filtration, Intermittent, Less than 6 Hours Per Day (ICD-10-PCS; 2017-12-31)
DX: I73.9 Peripheral vascular disease, unspecified (principal); N18.6 End stage renal disease; S36.439A Laceration of unspecified part of small intestine, initial encounter; I12.0 Hypertensive chronic kidney disease with stage 5 chronic kidney disease or end stage renal disease; M86.9 Osteomyelitis, unspecified; N25.81 Secondary hyperparathyroidism of renal origin; Z68.41 Body mass index [BMI] 40.0-44.9, adult; E66.01 Morbid (severe) obesity due to excess calories; K66.0 Peritoneal adhesions (postprocedural) (postinfection); Y83.8 Other surgical procedures as the cause of abnormal reaction of the patient, or of later complication, without mention of misadventure at the time of the procedure; Y81.3 Surgical instruments, materials and general- and plastic-surgery devices (including sutures) associated with adverse incidents; Y92.234 Operating room of hospital as the place of occurrence of the external cause; E11.22 Type 2 diabetes mellitus with diabetic chronic kidney disease; Z99.2 Dependence on renal dialysis; Z87.891 Personal history of nicotine dependence; E78.5 Hyperlipidemia, unspecified; K21.9 Gastro-esophageal reflux disease without esophagitis; F32.9 Major depressive disorder, single episode, unspecified; I25.10 Atherosclerotic heart disease of native coronary artery without angina pectoris; Z86.010 Personal history of colon polyps
CPT/HCPCS: 36415; 36416; 70498; 80048; 85025; 90935; 93880; C9113; G0257; J0131; J0694; J1644; J2250; J2270; J2704; J3010; J7050

== ENCOUNTER 2017-12-26 09:16 | Outpatient (CLI) | payer MEDICARE, BC, MEDICAID ==
[2017-12-26 09:53] LABS: #Eosinphils 0.3 thou/uL (0.0-0.7); #Lymphocytes 1.6 thou/uL (1.20-3.40); #Monocytes 0.7 thou/uL (0.11-0.59); %Basophils 0.8 % (0.0-1.0); %Eosinophils 4.4 % (0.0-10.0); %Lymphocytes 28.5 % (21.0-51.0); %Neutrophils 53.2 % (42.0-75.0); Hemoglobin 12.2 g/dL (14.0-18.0); Mean Corpuscular HGB CONC 31.6 g/dL (32.0-36.0); Mean Corpuscular Hemoglobin 32.1 pg (27.0-31.0); Mean Platelet Volume 7.9 fL (7.4-10.4); Platelet Count 178 thou/uL (130-400); RBC Distribution Width 14.8 % (11.5-14.5); White Blood Cell (WBC) Count 5.7 thou/uL (4.8-10.8)
[2017-12-26 10:14] LABS: Anion Gap 16 mmol/L (10-20); BUN (Urea Nitrogen) 33 mg/dL (8.4-25.7); Calc. Creatinine Clearance 0 mL/min (70-130); Carbon Dioxide 32 mmol/L (23-31); Chloride 94 mmol/L (98-107); Estimated GFR-MDRD 8; Glucose 112 mg/dL (80-115); Potassium 4.8 mmol/L (3.5-5.1); Sodium 137 mmol/L (136-145)
== END 2017-12-26 09:17 | disposition home or self-care (01) ==
LOC: LABBT 09:16
PROVIDERS: ATTEND Specialist
DX: Z01.812 Encounter for preprocedural laboratory examination (principal); E66.01 Morbid (severe) obesity due to excess calories; Z68.41 Body mass index [BMI] 40.0-44.9, adult
CPT/HCPCS: 80048; 85025

== ENCOUNTER 2018-01-12 05:31 | Inpatient (IN) | payer MEDICARE, BC, MEDICAID ==
[2018-01-12 06:21] LABS: Hemoglobin 9.9 g/dL (14.0-18.0); Mean Corpuscular HGB CONC 31.4 g/dL (32.0-36.0); Mean Corpuscular Hemoglobin 31.7 pg (27.0-31.0); Mean Platelet Volume 7.8 fL (7.4-10.4); Platelet Count 241 thou/uL (130-400); Red Blood Cell (RBC) Count 3.12 mill/uL (4.70-6.10)
[2018-01-12 06:37] LABS: Troponin I 0.045 ng/mL (< 0.028)
[2018-01-12 06:49] LABS: ALT (SGPT) Less than 7 U/L (8-55); AST (SGOT) 22 U/L (5-34); Albumin 3.4 g/dL (3.4-4.8); Alkaline Phosphatase 79 U/L (40-150); Anion Gap 23 mmol/L (10-20); BUN (Urea Nitrogen) 53 mg/dL (8.4-25.7); Bilirubin, Total 0.5 mg/dL (0.2-1.2); Calc. Creatinine Clearance 0 mL/min (70-130); Calcium 8.9 mg/dL (7.8-10.44); Carbon Dioxide 24 mmol/L (23-31); Chloride 93 mmol/L (98-107); Estimated GFR-MDRD 5; Globulin 4.6 g/dL (2.4-3.5); Glucose 120 mg/dL (80-115); Potassium 5.5 mmol/L (3.5-5.1); Sodium 134 mmol/L (136-145)
[2018-01-12 06:58] LABS: Band 9 % (5-11); Hypochromia SLIGHT = 6-15 cells (100X) (0-5/hpf); Lymphocytes 3 % (21-51); MDiff Complete? YES; Neutrophil 88 % (42-75); PLT Morphology Comment Appears Adequate
[2018-01-12] MEDS ORDERED: Lorazepam 2 MG/ML VIAL ONE (07:37)
[2018-01-12] MEDS ORDERED: levETIRAcetam 500 MG/100 ML PREMIX BAG ONE (07:50)
--- NOTE | 2018-01-12 08:09 | CT ---
CONTRAST ENHANCED CT IMAGES OF THE ABDOMEN AND PELVIS: IV contrast was given. Unfortunately, oral contrast was not given. This does decrease the sensitivi ty for detection of pathology. FINDINGS: Contrast-enhanced CT images of the abdomen and pelvis demonstrate some areas of atelectasis in the mary ng base. Extensive calcification of coronary arteries seen. The liver is unremarkable. There is a tiny pericardial effusion. The spleen contains some splenic calcifications. There is some gas seen along the anterior abdominal wall incision extending from the superumbilical r egion upward involving the subcutaneous fat just below the xiphoid process. Gas is seen in the incis ion site. There is a loop of transverse colon anteriorly abutting the anterior abdominal wall. Wher e there is communication between the subcutaneous air and of the colon I cannot determine as oral con trast was not given. I do not see evidence of definite intraperitoneal free air. No dilated loops of small bowel seen. No definite evidence of intraperitoneal fluid collection seen. Atherosclerotic calcification is seen in the abdominal aorta and iliac arteries. Both kidneys are atrophied with vascular calcification seen. There does appear to be some thickening of the transverse colon and descending colon. This may repre sent changes of colitis. IMPRESSION: 1. Gas seen in the operative site along the anterior abdominal wall incision. The exam is limited d ue to the fact that oral contrast was not given. 2. Renal atrophy. 3. Severe lumbar degenerative changes. POS: TOYIN
--- NOTE | 2018-01-12 08:16 | RAD ---
FRONTAL VIEW CHEST: COMPARISON: 10/29/2017. INDICATION: Surgical site drainage, wound with pain. FINDINGS: There is enlargement of the cardiac silhouette and pulmonary vasculature. No significant effusion or discrete pneumothorax. There is evidence of interstitial edema bilaterally. IMPRESSION: Evidence to indicate decompensated congestive heart failure. Correlate clinically. POS: C
[2018-01-12 08:42] LABS: Actual Bicarbonate (HCO3a) 27.2 mEq/L (22-28); Analyzer IN Cardio ER; CO2 Tension 45.6 mmHg (35.0-45.0); Calcium, Ionized 1.16 mmol/L (1.12-1.30); Carboxyhemoglobin (COHb) 0.8 gm% (0.0-3.0); O2 Tension (PaO2) 88.1 mmHg (> 80.0); Potassium - ABG Lab 4.51 mmol/L (3.70-5.30); pH, Arterial 7.39 (7.35-7.45)
[2018-01-12 08:45] LABS: Puncture Site RR
--- NOTE | 2018-01-12 08:47 | RAD ---
CHEST 1 VIEW: Date: 01/12/18 HISTORY: Central line placement. COMPARISON: Earlier exam same date. FINDINGS: Cardiac silhouette is magnified and enlarged. Pulmonary vasculature remains engorged. Tip of a right internal jugular central venous catheter overlies the upper right atrium. No evidence of pneumothorax. Defibrillator patch overlies the right chest. IMPRESSION: Right internal jugular catheter is in good radiographic position. POS: [facility]
--- NOTE | 2018-01-12 09:41 | PDOC.FPRHP ---
- History of Present Illness Chief Complaint: tired History of Present Illness: 67 yo gentleman with ESRD on dialysis MWF, who missed dialysis Friday endorses generalized weakness, lightheaded, and fatigue. He reports that he had an attempted gastric sleeve sx about 10 days ago, but Dr. Bonilla was unable to complete surgery due to very extensive adhesions. The patient then went to [facility] on Friday for revision of his fistula. He reports that he missed dialysis that day and had never missed dialysis prior to this. He reports worsened swelling in his LE. He had a new onset seizure this morning while in CT scanner. This seizure was described by photo technician that the pt started making gurgling sounds and then moving his legs funny and then he passed out. He continued these movements and noises and bit his tongue drawing blood and then had a BM. This whole episode lasted about 2 minutes. He denies any h/o seizures. His heart rate dropped to the 20's after the got back to the room from CT, and he states this is the first time this has every happened. Denies palpitations, hx of afib, or CHF, but endorses placement of one stent in his heart. He had a heart cath in September as a pre-op. ED Course: The pt was evaluated in the ED by Dr. Antony The patient had a seizure in the CT scanner and was loaded with 1g keppra. He then had an episode of bradycardia that was resolved with 1 mg atropine. The patient was also given 1 amp calcium gluconate, 2g magnesium sulfate, and aspirin 325mg. - Allergies/Adverse Reactions Allergies Allergy/AdvReac Type Severity Reaction Status Date / Time vancomycin Allergy Rash Verified 01/12/18 12:19 - Home Medications Medication Instructions Recorded Confirmed Type Aspirin [Ecotrin Low Strength] 81 mg PO QPM 09/20/13 01/12/18 History Carvedilol [Coreg] 1.5 tab PO BID 09/20/13 01/12/18 History Clopidogrel Bisulfate [Plavix] 75 mg PO QPM 09/20/13 01/12/18 History Fish Oil 1 tab PO QPM 09/20/13 01/12/18 History Sertraline HCl [Zoloft] 100 mg PO QPM 09/20/13 01/12/18 History Ubidecarenone [Co Q-10] 100 mg PO QPM 09/20/13 01/12/18 History cloNIDine HCl 1 tablet PO BID 09/20/13 01/12/18 History Pravastatin Sodium 20 mg PO HS 11/19/13 01/12/18 History Lanthanum Carbonate [Fosrenol] 3 tab PO TID-WM 10/28/16 01/12/18 History Fluticasone Propionate [Flonase 1 spray EA NARE BID 12/26/17 01/12/18 History Nasal [place]] Vit A/C/E/Zinc/Selenium/Copper 1 tab PO QPM 12/26/17 01/12/18 History [Vision Formula Tablet] Cinacalcet HCl [Sensipar] 1 tablet PO ASDIR 01/12/18 01/12/18 History Sevelamer Carbonate [Renvela] 800 mg PO ASDIR 01/12/18 01/12/18 History - History PMHx: 1. DM, type 2 2. ESRD on hemodialysis MWF 3. HTN 4. CAD s/p 1 stent PSHx: Fistula placement left arm, toes amputated ~ 5 years ago, all toes on right foot, fifth digit on left foot, recent gastric sleeve surgery, prior laparotomy for unknown reason, cardiac cath s/p 1 stent placement FHx: Father-DM type 2, Mom-aortic aneurysm Social: remote smoking history of 1ppd for ~10-15 years; smokes [employer] cigar occasionally, denies drug use or alcohol intake PCP: Dr. Covarrubias - Review of Systems General: reports: fatigue, other (shaking) Eyes: denies: eye pain, vision changes ENT: reports: other (sore throat). denies: nasal congestion, rhinorrhea Respiratory: reports: shortness of breath. denies: cough Cardiovascular: denies: chest pain, palpitation Gastrointestinal: reports: nausea. denies: vomiting, diarrhea Genitourinary: denies: dysuria, other (denies frequency) Skin: reports: rashes (buttocks, itchy, not painful, putting triple antibiotic on it) Musculoskeletal: reports: swelling. denies: pain Neurological: reports: seizure. denies: syncope - Vital signs BP: 100/51 HR: 66 RR: 19 Tmax: Pox: 96% on 3L Wt: 116kg - Physical Exam Constitutional: NAD, awake, alert and oriented HEENT: normocephalic and atraumatic, PERRLA, EOMI, conjunctiva clear, no scleral icterus, grossly normal hearing, MMM, oropharynx clear Neck: supple, FROM Heart: RRR, normal S1/S2, pulses present, other (1+ edema in BLE) -Lungs: coarse breath sounds bilaterally with rales in lower lung guerra bilaterally. No use of accessory muscles of respiration, no wheezes Abdomen: soft, non-tender, bowel sounds present, no masses/distention, other ( laparotomy incision with kael in place and some purulent d/c) Musculoskeletal: normal structure, normal tone Neurological: no focal deficit, CN II-XII intact Heme/Lymphatic: no unusual bruising or bleeding, no LAD Psychiatric: normal mood and affect, good judgment and insight, intact recent and remote memory FMR H&P: Results - Labs Result Diagrams: 01/13/18 05:20 01/13/18 05:20 Lab results: WBC 9.0 thou/uL (4.8-10.8) 01/12/18 05:57 Hgb 9.9 g/dL (14.0-18.0) L 01/12/18 05:57 Hct 31.5 % (42.0-52.0) L 01/12/18 05:57 MCV 101.0 fL (78.0-98.0) H 01/12/18 05:57 Plt Count 241 thou/uL (130-400) 01/12/18 05:57 Band Neuts % (Manual) 9 % (5-11) 01/12/18 05:57 ABG pH 7.39 (7.35-7.45) 01/12/18 08:39 ABG pCO2 45.6 mmHg (35.0-45.0) H 01/12/18 08:39 ABG pO2 88.1 mmHg (> 80.0) H 01/12/18 08:39 Sodium 134 mmol/L (136-145) L 01/12/18 05:57 Potassium 5.5 mmol/L (3.5-5.1) H 01/12/18 05:57 Chloride 93 mmol/L (98-107) L 01/12/18 05:57 Carbon Dioxide 24 mmol/L (23-31) 01/12/18 05:57 BUN 53 mg/dL (8.4-25.7) H 01/12/18 05:57 Creatinine 9.72 mg/dL (0.6-1.3) H 01/12/18 05:57 Glucose 120 mg/dL (80-115) H 01/12/18 05:57 Lactic Acid 2.3 mmol/L (0.5-2.2) H 01/12/18 05:57 Calcium 8.9 mg/dL (7.8-10.44) 01/12/18 05:57 Total Bilirubin 0.5 mg/dL (0.2-1.2) 01/12/18 05:57 AST 22 U/L (5-34) 01/12/18 05:57 ALT Less than 7 U/L (8-55) L 01/12/18 05:57 Alkaline Phosphatase 79 U/L (40-150) 01/12/18 05:57 CK-MB (CK-2) 2.0 ng/mL (0-6.6) 01/12/18 05:57 B-Natriuretic Peptide 2214.5 pg/mL (0-100) H 01/12/18 05:57 Serum Total Protein 8.0 g/dL (5.8-8.1) 01/12/18 05:57 Albumin 3.4 g/dL (3.4-4.8) 01/12/18 05:57 - EKG Interpretation EKG: HR 75, RBBB - Radiology Interpretation Chest x-ray Status: report reviewed by me Additional comment: Evidence to suggest decompensated heart failure CT scan - abdomen Status: report reviewed by me Additional comment: Gas along operative site, renal atrophy, severe lumbar degenerative changes FMR H&P: A/P - Problem List (1) Seizure Current Visit: Yes Status: Acute Code(s): R56.9 - UNSPECIFIED CONVULSIONS (2) Bradycardia Current Visit: Yes Status: Acute Code(s): R00.1 - BRADYCARDIA, UNSPECIFIED (3) Fluid overload Current Visit: Yes Status: Acute Code(s): E87.70 - FLUID OVERLOAD, UNSPECIFIED Qualifiers: Hypervolemia type: other Qualified Code(s): E87.79 - Other fluid overload (4) Hyperkalemia Current Visit: Yes Status: Acute Code(s): E87.5 - HYPERKALEMIA (5) ESRD (end stage renal disease) on dialysis Current Visit: Yes Status: Acute Code(s): N18.6 - END STAGE RENAL DISEASE; Z99.2 - DEPENDENCE ON RENAL DIALYSIS (6) DM2 (diabetes mellitus, type 2) Current Visit: Yes Status: Acute Qualifiers: Diabetes mellitus detention insulin use: without detention use Diabetes mellitus complication status: with circulatory complication Diabetes mellitus complication detail: with other circulatory complications Qualified Code(s): E11.59 - Type 2 diabetes mellitus with other circulatory complications (7) CAD (coronary artery disease) Current Visit: Yes Status: Acute Code(s): I25.10 - ATHSCL HEART DISEASE OF [place] CORONARY ARTERY W/O ANG PCTRS Qualifiers: Coronary Disease-Associated Artery/Lesion type: [place] artery [place] vs. transplanted heart: [place] heart Associated angina: without angina Qualified Code(s): I25.10 - Atherosclerotic heart disease of [place] coronary artery without angina pectoris (8) Anemia Current Visit: Yes Status: Acute Code(s): D64.9 - ANEMIA, UNSPECIFIED Qualifiers: Anemia type: due to chronic kidney disease Chronic kidney disease stage: on chronic dialysis Qualified Code(s): N18.6 - End stage renal disease; D63.1 - Anemia in chronic kidney disease; Z99.2 - Dependence on renal dialysis (9) Lactic acid increased Current Visit: Yes Status: Acute Code(s): E87.2 - ACIDOSIS (10) Troponin level elevated Current Visit: Yes Status: Acute Code(s): R74.8 - ABNORMAL LEVELS OF OTHER SERUM ENZYMES - Plan Seizure, new onset Patient had witnessed tonic-clonic seizure in the ED that lasted 2 minutes. s/p 1g keppra -Consult Neuro, appreciate recs -Continue keppra -CT head pending -Seizure precautions -Neuro checks Severe Bradycardia pt had episode of bradycardia to the 20's after the seizure. s/p 1mg atropine. EKG prior to this episode showed rate 75 with RBBB. Pt had h/o CAD s/p 1 stent -Consult Dr. Liang with cardiology, appreciate recs -Monitor on tele -Hold all BB -Initial trop indeterminate with no prior baseline, will trend trops Fluid Overload Pt appears fluid overloaded on CXR and has edema of BLE. This is likely 2/2 missed dialysis on Friday. -Consult Dr. Madden with nephrology, appreciate recs. Plan for dialysis today -Consult Dr. Liang with Cardiology as there could be a component of CHF -Consider echo Wound Infection, suspected Pt with possible wound infection of laparotomy wound with some purulent drainage. Kael in place -Dr. Bonilla with general surgery consulted, appreciate recs -Trend lactic acid -Blood cultures Hyperkalemia K 5.5 with no peaked T waves. Pt s/p 1 amp calcium gluconate in ED. -Plan for dialysis today -Monitor Elevated Troponin Initial trop 0.045. This could be 2/2 decreased clearance with ESRD. Concern with episode of bradycardia to the 's. Per pt had recent cath in September that was "normal" -Trend trops -Repeat trop and EKG if pt develops chest pain -Consult Dr. Liang with cardiology, appreciate recs Elevated BNP Pt BNP was 2214.5. No hx in [employer] of prior BNP or echo. Per pt has had echo' s with Dr. Liang. -Consult Dr. Liang with cardiology, appreciate recs -Consider echo Elevated Lactic Acid Lactic Acid 2.3. Pt with chills and new onset seizure. Afebrile and no elevated WBC count. -Trend lactic acid -Blood cultures ESRD on HD Pt gets dialysis MWF and had recent revision of LUE fistula -Dr. Madden with nephrology has been consulted, appreciate recs -Plan for Dialysis today -Renal diet Anemia of CKD Pt Hb stable -Procrit weekly -Monitor DM2 Pt denies needing any medication for a few years. -Accuchecks ACHS -Mild SSI CAD s/p 1 stent Pt reports recent cath that was ok. s/p 1 stent several years ago -Aspirin -Trend trops -Plavix H/O tobacco abuse Pt is a former smoker with remote hx. -Encouraged continued cessation Diet: renal/CC Fluids: none Code status: Full VTE ppx: On plavix Disposition/LOS: Admit to IMCU, length of stay likely greater than 2 days FMR H&P: Upper Level - Plan Date/Time: 01/12/18 0938 I, [], have evaluated this patient and agree with findings/plan as outlined by internal carver resident. Pertinent changes/additions are listed here. Attending Addendum - Attending Addendum Date/Time: 01/13/18 1200 I personally evaluated the patient and discussed the management with Dr. Epstein in ED on 09/12/17. I agree with the History, Examination, Assessment and Plan documented above with any addition or exceptions noted below. 67 y.o. RODRÍGUEZ with h/o ESRD on HD in prep for transplant, CAD s/p Stent x1V, DM2 with nephropathy, HTN, morbid obesity s/p attempted gastric sleeve suspended due to dense intraabdominal adhesions had revision of left upper fistula aneurysm last week. He subsequently missed dialysis on Friday and awoke weak and lethargic today with increasing edema. He was having a CT done when he had an episode c/w generalized seizure. No h/o sz. prior. Now fully awake. RRR w/ o M. BBS CTA. Fistula clean, + thrill. Abd--soft, mildly distended, obese, abdominal incision with mucopurulent drainage. Admit for dialysis, neuro w/u, eval of abdomin
--- NOTE | 2018-01-12 09:49 | PRG ---
DATE OF SERVICE: 01/12/2018 SUBJECTIVE: Mr. Linares is a 67-year-old male with ESRD - on maintenance hemodialysis and was seen in the ER for an abdominal discomfort. He had exploratory laparotomy a week ago. A CT scan of the abdomen and pelvis showed no significant findings except the operative site with an abdominal wa ll incision. There was renal atrophy and severe lumbar degenerative changes. He also was noted to h ave a seizure and for that reason, a CT scan of the head has been ordered. Please note his chest x-r ay showed enlargement of the cardiac silhouette and increased pulmonary vasculature. He had also int erstitial edema. Of interest, this patient has not had dialysis since Friday of last week. We are being consulted for his maintenance hemodialysis. I have discussed the case with the nursing staff. We will schedule him for his 4 hour dialysis today. PHYSICAL EXAMINATION: GENERAL: He is noted to be awake, alert, comfortable, not in distress. VITAL SIGNS: Heart rate is now 90. GENERAL: Awake, supine, comfortable, not in distress. HEENT: He has slightly pale conjunctivae, anicteric sclerae. NECK: No neck mass, no carotid bruits, no JVD. CHEST: No deformities. LUNGS: Clear breath sounds. No wheezing, no crackles. HEART: Normal sinus rhythm. No murmur, no gallops or rubs. ABDOMEN: Globular, soft, nontender, no masses. EXTREMITIES: Trace edema. MEDICATIONS: 01/12/2018 - Currently not available, but as per review of his home medications, the p risa has been on clonidine 0.1 mg p.o. b.i.d., he is on carvedilol 6.25 mg 1-1/2 tablet b.i.d., Eco patrick 81 mg q.p.m., pravastatin 20 mg tab at bedtime, Fosrenol 3 tabs t.i.d. with meals, clonidine 0.1 mg p.o. b.i.d., aspirin 81 mg tab once a day. LABORATORY: 01/12/2018 - White count 9, hemoglobin 9.9. Sodium 134, potassium 5.5, chloride 93, car bon dioxide 24, BUN 53, creatinine 9.72, glucose 120, calcium 8.9. ALT less than 7, AST 22. Lactic acid 2.3. ASSESSMENT AND PLAN: 1. Bradycardia - the patient was noted to have been bradycardic. He was given atropine with improve ment of the heart rate from the 127 to a most recent heart rate of 90. We will probably hold off his Coreg and clonidine. Change his blood pressure medication to an IV blood pressure medication. For the moment, we will observe his blood pressure. 2. End-stage renal disease. We will schedule for a 4-hour hemodialysis. Fluid removal only as tole rated. Attempt between 2 and 3 liter fluid removal today. 3. Anemia. Resume back his weekly Epogen. 4. New onset seizure. Consider starting patient on anti-seizure medication - Doreen.
--- NOTE | 2018-01-12 10:20 | CT ---
HEAD CT NONCONTRAST: Date: 01/12/18 INDICATION: Possible seizure activity. FINDINGS: There is no acute intracranial hemorrhage, mass effect, or midline shift. Ventricular system is jaden l in size. There is motion artifact. IMPRESSION: 1. No acute intracranial abnormalities. 2. Mild bilateral mastoid opacification. Correlate clinically. POS: [facility]
[2018-01-12 10:43] LABS: Troponin I 0.052 ng/mL (< 0.028)
[2018-01-12] MEDS ORDERED: Ondansetron PF 4 MG/2 ML Vial IVP PRN (11:50)
[2018-01-12] MEDS ORDERED: Ondansetron ODT 4 MG TAB SL PRN (11:50)
[2018-01-12] MEDS ORDERED: Acetaminophen 325 MG TAB PO PRN (11:50)
[2018-01-12 12:40] LABS: Lactic Acid 1.9 mmol/L (0.5-2.2)
[2018-01-12] MEDS ORDERED: Prevnar 13-Val Conj/PF 0.5 ML SYRINGE IM ONE (13:00)
[2018-01-12] MEDS ORDERED: ISOVUE-370 76%-LOCM 1 ML ONE (13:27)
[2018-01-12 14:00] LABS: Troponin I 0.041 ng/mL (< 0.028)
[2018-01-12 14:59] LABS: HBSAg Index 0.27 S/CO (0-0.99); Hep B Surf Ag Non-Reactive S/CO (NonReactive)
--- NOTE | 2018-01-12 15:27 | CON ---
DATE OF CONSULTATION: 01/12/2018 REASON FOR CONSULTATION: Bradycardia and seizure. HISTORY OF PRESENT ILLNESS: Mr. Linares is a very pleasant 67-year-old gentleman, last 10 years. He has a history of mild to moderate coronary artery disease, diagnosed on angio in 2016. He has h ad a prolonged course over the last several weeks. He recently was scheduled for a gastric sleeve. This was unsuccessful due to significant adhesions per patient. He was in the hospital for 1 week. He was then discharged. He missed dialysis on this past Friday. He felt he could go to Friday. H e then presented with increased shortness of breath. He also has had drainage from his incision. He had a CT scan of the abdomen performed while in the emergency room and had a seizure. This is new o nset. The history is somewhat difficult, but in the interim, the patient did have bradycardia per th e resident down in the 20s. He has had no previous history of bradycardia. There is no physical doc umentation of the bradycardia. He is currently stable with a heart rate in the 70s-80s. No previous history of syncope, presyncope or other associated symptoms. PAST MEDICAL HISTORY: Hyperlipidemia, end-stage renal disease, diabetes mellitus, acid reflux, knee surgery, pleural effusion, hypertension. ALLERGIES: IODINE. HOME MEDICATIONS: Sensipar, aspirin, fish oil, CoQ10, Zoloft, clonidine, pravastatin, Renvela, Fosre nol, clopidogrel, and carvedilol. REVIEW OF SYSTEMS: Ten-point review of systems is reviewed as above, otherwise negative. PHYSICAL EXAMINATION: GENERAL: Patient is a pleasant male/female who is in no acute distress. The patient appears his/her stated age. VITAL SIGNS: Blood pressure 101/46, pulse 81, temperature 97.8. NEUROLOGIC: The patient is alert and oriented times 3 with no focal neurologic deficits. HEENT: Sclerae without icterus. Mouth has moist mucous membranes with normal pallor. NECK: No JVD. Carotid upstroke brisk. No bruits bilaterally. LUNGS: Clear to auscultation with unlabored respirations. BACK: No scoliosis or kyphosis. CARDIAC: Regular rate and rhythm with normal S1 and S2. No S3 or S4 noted. No significant rubs, murmurs, thrills, or gallops noted throughout the precordium. PMI is not displaced. There is no parasternal heave. ABDOMEN: Decreased bowel sounds with midline incision present with serous drainage. No hepatosplenomegaly. No abnormal striae. EXTREMITIES: 2+ femoral and 2+ dorsalis pedis pulses. No cyanosis, clubbing, or edema. SKIN: No gross abnormalities. PERTINENT LABS: Hemoglobin 9.9, white blood cell count 9.0. BNP of 2219. Peak troponin 0.052. IMPRESSION: 1. New onset seizure. 2. Bradycardia. 3. Mild to moderate coronary artery disease. 4. End-stage renal disease. RECOMMENDATIONS: At this point, there is no documentation of recent episode of bradycardia. He has no previous history of seizure. He did defecate during the episode. He was also loaded with Keppra. I would certainly cannot completely rule out a dysrhythmia given his presentation but would like to have evidence of his bradycardia. At this point, we will continue to monitor. Anticipate his hospi talization will be for several days. May benefit from event recorder if no significant dysrhyt hmias are present.
[2018-01-12] MEDS ORDERED: Dextrose 50% Abboject 50 ML SYRINGE SLOW IVP PRN (17:37)
[2018-01-12] MEDS ORDERED: Dextrose 5% in Water 1,000 ML IV PRN (17:37)
[2018-01-12] MEDS: Epoetin (ESRD) 20,000 UNITS/ML SC SCH (17:50)
[2018-01-12] MEDS ORDERED: Lanthanum Carbonate 500 mg Tablet PO SCH (18:00)
[2018-01-12] MEDS: Fish Oil 1,000 MG CAP PO SCH (20:55)
[2018-01-12] MEDS: Pravastatin Sodium 20 MG TAB PO SCH (20:55)
[2018-01-12] MEDS: Ubidecarenone 50 MG CAP PO SCH (20:55)
[2018-01-12] MEDS: Aspirin 81 mg Enteric Coated Tablet PO SCH (20:55)
[2018-01-12] MEDS: Clopidogrel Bisulfate 75 MG TAB PO SCH (20:55)
[2018-01-12] MEDS: Fluticasone Propionate Nasal Spray 16 gm Bottle NASAL SCH (20:56)
[2018-01-12] MEDS: levETIRAcetam 500 MG TAB PO SCH (20:56)
[2018-01-13] MEDS ORDERED: Sodium Chloride 0.9% 250 ML IV SCH (00:15)
[2018-01-13 05:43] LABS: #Eosinphils 0.1 thou/uL (0.0-0.7); #Lymphocytes 0.8 thou/uL (1.20-3.40); #Monocytes 0.8 thou/uL (0.11-0.59); %Basophils 0.4 % (0.0-1.0); %Eosinophils 1.3 % (0.0-10.0); %Lymphocytes 8.5 % (21.0-51.0); %Monocytes 8.3 % (0.0-10.0); %Neutrophils 81.6 % (42.0-75.0); Hemoglobin 8.4 g/dL (14.0-18.0); Mean Corpuscular HGB CONC 31.2 g/dL (32.0-36.0); Mean Corpuscular Hemoglobin 31.6 pg (27.0-31.0); Mean Platelet Volume 7.7 fL (7.4-10.4); Platelet Count 228 thou/uL (130-400); Red Blood Cell (RBC) Count 2.67 mill/uL (4.70-6.10); White Blood Cell (WBC) Count 9.8 thou/uL (4.8-10.8)
[2018-01-13 06:00] LABS: Anion Gap 15 mmol/L (10-20); BUN (Urea Nitrogen) 27 mg/dL (8.4-25.7); Calc. Creatinine Clearance 22 mL/min (70-130); Calcium 8.8 mg/dL (7.8-10.44); Carbon Dioxide 28 mmol/L (23-31); Chloride 96 mmol/L (98-107); Estimated GFR-MDRD 10; Glucose 94 mg/dL (80-115); Potassium 4.3 mmol/L (3.5-5.1); Sodium 135 mmol/L (136-145)
--- NOTE | 2018-01-13 08:25 | CON ---
DATE OF CONSULTATION: 01/13/2018 CHIEF COMPLAINT: Abdominal wound infection. HISTORY OF PRESENT ILLNESS: This patient is a 67-year-old morbidly obese male well known to myself. On 12/30/2017 he was taken to the operating room with the intention of proceeding with a la paroscopic sleeve gastrectomy. He unfortunately had extraordinarily dense intra-abdominal adhesions. After a couple of hours of attempting to lyse adhesions, I decided to abandon the operation. He mckinney d 1 enterotomy that had occurred during the course of the dissection and this was repaired. He did w ell after his surgery and was discharged home on postoperative day #3 with no apparent infectious pro blems. He had a followup appointment scheduled in my office on 01/14/2018. He, however, returned to the [facility] room yesterday, 01/12/2018, secondary to shortness of breath and not feeling well after missin g a scheduled dialysis over the weekend. The patient was being admitted to the hospital by the [facility]. There had notified me that there was some drainage seen from the abdominal wound and asked if I can evaluate him in regards to this. Mr. Linares denies any problems. He tells me he is eating well and bowel function is good. He notes n o significant abdominal pain. His does note that he has had some drainage from his abdominal wo und. PAST MEDICAL HISTORY: End-stage renal disease, morbid obesity, diabetes mellitus, hypertension, lacey nary artery disease. PAST SURGICAL HISTORY: Left arm AV fistula, toe amputations, attempted sleeve gastrectomy, midline l aparotomy for resection of an extensive intra-abdominal process, the nature of which I am still uncer tain. PHYSICAL EXAMINATION: VITAL SIGNS: He is afebrile, pulse is 60, blood pressure 145/50. GENERAL: He is well-developed, well-nourished, obese male. He is alert and oriented x3. HEENT: Unremarkable. NECK: Supple. LUNGS: Clear to auscultation. CARDIAC: Regular rate and rhythm. ABDOMEN: Soft. There was purulent drainage coming from his mid abdominal incision. I opened a coup le of kael at this location finding a small collection underneath the skin. There appeared to con tinue to be drainage when I pressed, however, and I continued removing kael extending inferiorly, at which point I ended up opening to a much larger cavity. The primary area of the wound infection w as at the inferior wound, but the drainage had tracked up to the mid wound. I therefore opened up al l the kael in the lower half of his wound. I had placed some subcutaneous sutures to help approxi mate the space and these were removed as well. The wound was opened. The cultures were obtaine d. The wound was then packed with dry gauze dressing. ASSESSMENT AND PLAN: A patient with postoperative wound infection. In light of his open intestine a s well as the multiple comorbidities, this is not entirely surprising. He will require ongoing wound care. I will consult Wound Care team for placement of a wound VAC. I do not think he requires any specific antibiotics at this time.
--- NOTE | 2018-01-13 08:34 | PRG ---
DATE OF SERVICE: 01/13/2018 SUBJECTIVE: Mr. Linares is a 67-year-old male with ESRD - on maintenance hemodialysis. We ar e following this patient for his maintenance hemodialysis. He underwent hemodialysis yesterday witho ut any difficulty. Fluid removal was tolerated by the patient. He came in due to his abdominal woun d. A CT scan of the abdomen and pelvis did not show any intrinsic intra-abdominal abnormality. Whil e he was in the ____ he developed a seizure. He subsequently underwent a CT scan of the brain which showed no acute intracranial abnormality. He was also seen by Dr. Liang for his bradycardia. Pr eviously he was taking carvedilol and clonidine. This may have precipitated the bradycardia. For th is reason, those 2 medications have been discontinued. He is also being treated empirically for seiz ure disorder. This morning, he voices no new complaints. The patient denies any chest pain or short ness of breath. He denies any syncopal episode. PHYSICAL EXAMINATION: VITAL SIGNS: Blood pressure 145/54, heart rate 60, respiratory rate 18, temperature 97.9, pulse ox 1 00%. GENERAL: Noted to be sitting, awake, comfortable, not in distress, obese. SKIN: Adequate turgor. HEENT: He has slightly pale conjunctivae, anicteric sclerae. NECK: No neck mass, no carotid bruits, no JVD. CHEST: No deformities. LUNGS: Clear breath sounds, no wheezing, no crackles. HEART: Normal sinus rhythm. No murmur, no gallops, no rubs. ABDOMEN: Globular, soft. Positive for abdominal wound with dressing. EXTREMITIES: No edema, no deformities. MEDICATIONS: 01/13/2018 - Reviewed. LABORATORY: 01/13/2018 - White count 9.8, hemoglobin 8.4. Sodium 135, potassium 4.3, chloride 96, c arbon dioxide 28, BUN 27, creatinine 5.92, glucose 94, calcium 8.8. TSH is 3.6. ASSESSMENT AND PLAN: 1. Seizure disorder, currently patient is on Keppra 2. Anemia. We have started his maintenance Epogen - being given q. week. 3. Bradycardia, resolved - status post atropine, hold clonidine and Coreg. 4. End-stage renal disease, stable. Tolerating current hemodialysis regimen. Continue Friday, , Friday dialysis regimen. 5. Post-surgical wound - will consult Wound Care. Recheck base met and CBC in the a.m.
--- NOTE | 2018-01-13 09:18 | PDOC.FM ---
- Subjective Subjective: Patient reports that he feels much better after dialysis yesterday. He denies any chest pain, SOB. He reports some continued abdominal pain at the site of the surgical incision. He denies any further episodes of syncope or seizure. - Objective MAR Reviewed: Yes Vital Signs & Weight: Vital Signs (12 hours) Temp Pulse Resp BP Pulse Ox 01/13/18 07:40 98.5 F 64 18 126/44 L 100 01/13/18 04:00 97.9 F 60 18 145/54 H 100 01/13/18 03:00 109/53 L 01/13/18 01:00 125/46 L 01/13/18 00:10 105/87 01/13/18 00:00 97.5 F L 58 L 14 86/43 L 100 Weight Weight 126.2 kg I&O: 01/12/18 01/13/18 01/14/18 06:59 06:59 06:59 Intake Total 590 Balance 590 Result Diagrams: 01/13/18 05:20 01/13/18 05:20 <Lydia Epstein - Last Filed: 01/13/18 09:16> - Objective Vital Signs & Weight: Vital Signs (12 hours) Temp Pulse Resp BP BP Pulse Ox 01/13/18 10:51 98.5 F 65 18 136/56 L 98 01/13/18 07:40 98.5 F 64 18 126/44 L 100 01/13/18 04:00 97.9 F 60 18 145/54 H 100 01/13/18 03:00 109/53 L 01/13/18 01:00 125/46 L Weight Weight 126.2 kg I&O: 01/12/18 01/13/18 01/14/18 06:59 06:59 06:59 Intake Total 590 Balance 590 Result Diagrams: 01/13/18 05:20 01/13/18 05:20 <Nik Neville - Last Filed: 01/13/18 12:46> Phys Exam - Physical Examination Constitutional: NAD HEENT: moist MMs, sclera anicteric Respiratory: no wheezing, no rales, no rhonchi, clear to auscultation bilateral Cardiovascular: RRR, no significant murmur, no rub Gastrointestinal: soft, positive bowel sounds mildly TTP diffusely Psychiatric: normal affect, A&O x 3 Deviation from normal: abdominal surgical incision with draining fluid, packed with gauze <Lydia Epstein - Last Filed: 01/13/18 09:16> Dx/Plan (1) Seizure Code(s): R56.9 - UNSPECIFIED CONVULSIONS Status: Acute (2) Bradycardia Code(s): R00.1 - BRADYCARDIA, UNSPECIFIED Status: Acute (3) Fluid overload Code(s): E87.70 - FLUID OVERLOAD, UNSPECIFIED Status: Acute Qualifiers: Hypervolemia type: other Qualified Code(s): E87.79 - Other fluid overload (4) Hyperkalemia Code(s): E87.5 - HYPERKALEMIA Status: Acute (5) ESRD (end stage renal disease) on dialysis Code(s): N18.6 - END STAGE RENAL DISEASE; Z99.2 - DEPENDENCE ON RENAL DIALYSIS Status: Acute (6) DM2 (diabetes mellitus, type 2) Status: Acute Qualifiers: Diabetes mellitus mcfp insulin use: without roasterman use Diabetes mellitus complication status: with circulatory complication Diabetes mellitus complication detail: with other circulatory complications Qualified Code(s): E11.59 - Type 2 diabetes mellitus with other circulatory complications (7) CAD (coronary artery disease) Code(s): I25.10 - ATHSCL HEART DISEASE OF [place] CORONARY ARTERY W/O ANG PCTRS Status: Acute Qualifiers: Coronary Disease-Associated Artery/Lesion type: [place] artery [place] vs. transplanted heart: [place] heart Associated angina: without angina Qualified Code(s): I25.10 - Atherosclerotic heart disease of [place] coronary artery without angina pectoris (8) Anemia Code(s): D64.9 - ANEMIA, UNSPECIFIED Status: Acute Qualifiers: Anemia type: due to chronic kidney disease Chronic kidney disease stage: on chronic dialysis Qualified Code(s): N18.6 - End stage renal disease; D63.1 - Anemia in chronic kidney disease; Z99.2 - Dependence on renal dialysis (9) Lactic acid increased Code(s): E87.2 - ACIDOSIS Status: Acute (10) Troponin level elevated Code(s): R74.8 - ABNORMAL LEVELS OF OTHER SERUM ENZYMES Status: Acute (11) Postoperative wound infection Code(s): T81.49XA - INFECTION FOLLOWING A PROCEDURE, OTHER SURGICAL SITE, INIT Status: Acute - Plan Plan: Seizure, new onset Patient had witnessed tonic-clonic seizure in the ED that lasted 2 minutes. s/p 1g keppra -Consult Neuro, appreciate recs -Continue keppra -Seizure precautions -Neuro checks Severe Bradycardia, resolved pt had episode of bradycardia to the 20's after the seizure. s/p 1mg atropine. EKG prior to this episode showed rate 75 with RBBB. Trops WNL Pt had h/o CAD s/p 1 stent -Consulted Dr. Liang with cardiology, appreciate recs -Monitor on tele -Hold all BB -Echo Fluid Overload, improving Pt appears fluid overloaded on CXR and has edema of BLE. This is likely 2/2 missed dialysis on Friday. -Consulted Dr. Madden with nephrology, appreciate recs. Plan for dialysis today -Consulted Dr. Liang with Cardiology as there could be a component of CHF -Echo Post-Op Wound Infection Pt with wound infection of inferior aspect of laparotomy wound with some purulent drainage. -Dr. Bonilla with general surgery consulted, appreciate recs -Blood cultures NGTD -Wound cx pending -Wound care consulted for wound vac Hyperkalemia K 5.5 initially with no peaked T waves. Pt s/p 1 amp calcium gluconate in ED. -s/p dialysis -Monitor Elevated Troponin Initial trop 0.045. This could be 2/2 decreased clearance with ESRD. Concern with episode of bradycardia to the 20's. Per pt had recent cath in September that was "normal". Repeat trop trended down -Repeat trop and EKG if pt develops chest pain -Consulted Dr. Liang with cardiology, appreciate recs Elevated BNP Pt BNP was 2214.5. No hx in [facility] of prior BNP or echo. Per pt has had echo' s with Dr. Liang. -Consulted Dr. Liang with cardiology, appreciate recs -echo Elevated Lactic Acid, resolved Lactic Acid 2.3. Pt with chills and new onset seizure. Afebrile and no elevated WBC count. Repeat Lactic Acid WNL -Blood cultures NGTD ESRD on HD Pt gets dialysis MWF and had recent revision of LUE fistula -Dr. Madden with nephrology has been consulted, appreciate recs -Plan for Dialysis MWF -Renal diet Anemia of CKD Pt Hb stable -Procrit weekly -Monitor DM2 Pt denies needing any medication for a few years. -Accuchecks ACHS -Mild SSI CAD s/p 1 stent Pt reports recent cath that was ok. s/p 1 stent several years ago -Aspirin -Plavix H/O tobacco abuse Pt is a former smoker with remote hx. -Encouraged continued cessation Diet: renal/CC Fluids: none Code status: Full VTE ppx: On plavix <Lydia Epstein - Last Filed: 01/13/18 09:16> (1) Seizure Code(s): R56.9 - UNSPECIFIED CONVULSIONS Status: Acute (2) Bradycardia Code(s): R00.1 - BRADYCARDIA, UNSPECIFIED Status: Acute (3) Fluid overload Code(s): E87.70 - FLUID OVERLOAD, UNSPECIFIED Status: Acute Qualifiers: Hypervolemia type: other Qualified Code(s): E87.79 - Other fluid overload (4) Hyperkalemia Code(s): E87.5 - HYPERKALEMIA Status: Acute (5) ESRD (end stage renal disease) on dialysis Code(s): N18.6 - END STAGE RENAL DISEASE; Z99.2 - DEPENDENCE ON RENAL DIALYSIS Status: Acute (6) DM2 (diabetes mellitus, type 2) Status: Acute Qualifiers: Diabetes mellitus mcfp insulin use: without roasterman use Diabetes mellitus complication status: with circulatory complication Diabetes mellitus complication detail: with other circulatory complications Qualified Code(s): E11.59 - Type 2 diabetes mellitus with other circulatory complications (7) CAD (coronary artery disease) Code(s): I25.10 - ATHSCL HEART DISEASE OF [place] CORONARY ARTERY W/O ANG PCTRS Status: Acute Qualifiers: Coronary Disease-Associated Artery/Lesion type: [place] artery [place] vs. transplanted heart: [place] heart Associated angina: without angina Qualified Code(s): I25.10 - Atherosclerotic heart disease of [place] coronary artery without angina pectoris (8) Anemia Code(s): D64.9 - ANEMIA, UNSPECIFIED Status: Acute Qualifiers: Anemia type: due to chronic kidney disease Chronic kidney disease stage: on chronic dialysis Qualified Code(s): N18.6 - End stage renal disease; D63.1 - Anemia in chronic kidney disease; Z99.2 - Dependence on renal dialysis (9) Lactic acid increased Code(s): E87.2 - ACIDOSIS Status: Acute (10) Troponin level elevated Code(s): R74.8 - ABNORMAL LEVELS OF OTHER SERUM ENZYMES Status: Acute <Nik Neville - Last Filed: 01/13/18 12:46> Attending Addendum - Attending Addendum Date/Time: 01/13/18 9178 I personally evaluated the patient and discussed the management with Dr. Epstein. I agree with the History, Examination, Assessment and Plan documented above with any addition or exceptions noted below. subjectively improved. Up at bedside. Anterior incision opened by Irene yesterday and draining; for woundVac today. tolerated dialysis yesterday, repeat per Nephrology. Neurologically stable. Says he recalls a similar episode around time of previous surgery. Continue [place], discuss w/ Neuro; w/ u here vs. Outpt. To Med/Surg floor. <Nik Neville - Last Filed: 01/13/18 12:46>
[2018-01-13] MEDS: levETIRAcetam 500 MG TAB PO SCH ×2 (10:02→20:52)
[2018-01-13] MEDS: Fluticasone Propionate Nasal Spray 16 gm Bottle NASAL SCH ×2 (10:02→20:53)
[2018-01-13] MEDS: Lanthanum Carbonate 500 mg Tablet PO SCH ×3 (10:17→18:09)
--- NOTE | 2018-01-13 12:48 | PDOC.CTH ---
Cardiology Progress Note - Subjective No complaints today. UNderwent dialysis yesterday. No further episodes of bradycardia - Objective Vital Signs Temp Pulse Resp BP BP Pulse Ox 01/13/18 10:51 98.5 F 65 18 136/56 L 98 01/13/18 07:40 98.5 F 64 18 126/44 L 100 01/13/18 04:00 97.9 F 60 18 145/54 H 100 01/13/18 03:00 109/53 L 01/13/18 01:00 125/46 L Weight 278 lb 3.574 oz 01/12/18 01/13/18 01/14/18 06:59 06:59 06:59 Intake Total 590 Balance 590 - Physical Examination General/Neuro: alert & oriented x3, NAD Neck: carotid US brisk, no JVD present Lungs: CTA, unlabored respirations Heart: PMI normal, RRR Abdomen: NT/ND, soft Extremities: + femoral B - Labs Result Diagrams: 01/13/18 05:20 01/13/18 05:20 Troponin/CKMB CK-MB (CK-2) 2.0 ng/mL (0-6.6) 01/12/18 05:57 Troponin I 0.041 ng/mL (< 0.028) H 01/12/18 13:22 - Assessment/Plan seizure vs syncope Bradycardia? Mild CAD ESRD No evidence so far of bradycardia Continue to monitor on Tele If stable over next 24 hours, recommend 3 week event recorder as outpatient prior to dc.
[2018-01-13] MEDS: Vit A,C & E/Lutein/Minerals Tablet PO SCH (20:52)
[2018-01-13] MEDS: Pravastatin Sodium 20 MG TAB PO SCH (20:52)
[2018-01-13] MEDS: Ubidecarenone 50 MG CAP PO SCH (20:52)
[2018-01-13] MEDS: Aspirin 81 mg Enteric Coated Tablet PO SCH (20:52)
[2018-01-13] MEDS: Fish Oil 1,000 MG CAP PO SCH (20:52)
[2018-01-13] MEDS: Clopidogrel Bisulfate 75 MG TAB PO SCH (20:52)
[2018-01-14 04:05] LABS: Anion Gap 16 mmol/L (10-20); BUN (Urea Nitrogen) 34 mg/dL (8.4-25.7); Calc. Creatinine Clearance 19 mL/min (70-130); Calcium 8.8 mg/dL (7.8-10.44); Carbon Dioxide 28 mmol/L (23-31); Chloride 94 mmol/L (98-107); Estimated GFR-MDRD 8; Glucose 114 mg/dL (80-115); Potassium 4.3 mmol/L (3.5-5.1); Sodium 134 mmol/L (136-145)
[2018-01-14 04:26] LABS: #Eosinphils 0.2 thou/uL (0.0-0.7); #Lymphocytes 0.9 thou/uL (1.20-3.40); #Neutrophils 5.3 thou/uL (1.40-6.50); %Basophils 0.5 % (0.0-1.0); %Eosinophils 2.4 % (0.0-10.0); %Lymphocytes 12.7 % (21.0-51.0); %Monocytes 13.1 % (0.0-10.0); %Neutrophils 71.4 % (42.0-75.0); Hemoglobin 8.4 g/dL (14.0-18.0); Mean Corpuscular HGB CONC 31.7 g/dL (32.0-36.0); Mean Corpuscular Hemoglobin 31.9 pg (27.0-31.0); Mean Platelet Volume 7.6 fL (7.4-10.4); Platelet Count 239 thou/uL (130-400); RBC Distribution Width 13.8 % (11.5-14.5); Red Blood Cell (RBC) Count 2.65 mill/uL (4.70-6.10); White Blood Cell (WBC) Count 7.4 thou/uL (4.8-10.8)
--- NOTE | 2018-01-14 07:19 | PDOC.FM ---
- Subjective Subjective: Patient reports that he is feeling back to his baseline. He denies any further seizures, syncope. He denies CP, palpitations. He reports some mild abdominal discomfort associated with the wound vac. - Objective MAR Reviewed: Yes Vital Signs & Weight: Vital Signs (12 hours) Temp Pulse Resp BP Pulse Ox 01/14/18 04:00 97.9 F 64 17 127/41 L 99 01/14/18 00:00 97.1 F L 63 18 122/49 L 100 01/13/18 19:49 98.6 F 62 17 143/50 H 100 Weight Admit Weight 129.228 kg Weight 126.552 kg I&O: 01/13/18 01/14/18 01/15/18 06:59 06:59 06:59 Intake Total 590 500 Output Total 180 Balance 590 320 Result Diagrams: 01/14/18 03:27 01/14/18 03:27 <Lydia Epstein - Last Filed: 01/14/18 08:45> - Objective Vital Signs & Weight: Vital Signs (12 hours) Temp Pulse Resp BP BP Pulse Ox 01/14/18 08:00 98.1 F 62 16 151/70 H 100 01/14/18 04:00 97.9 F 64 17 127/41 L 99 01/14/18 00:00 97.1 F L 63 18 122/49 L 100 Weight Admit Weight 129.228 kg Weight 126.552 kg I&O: 01/13/18 01/14/18 01/15/18 06:59 06:59 06:59 Intake Total 590 500 Output Total 180 Balance 590 320 Result Diagrams: 01/14/18 03:27 01/14/18 03:27 <Nik Neville - Last Filed: 01/14/18 10:54> Phys Exam - Physical Examination Constitutional: NAD HEENT: moist MMs, sclera anicteric Respiratory: no wheezing, no rales, no rhonchi, clear to auscultation bilateral Cardiovascular: RRR, no significant murmur, no rub Gastrointestinal: soft, no distention, positive bowel sounds mildly TTP around surgical site infection with wound vac in place Trace edema in BLE Psychiatric: normal affect, A&O x 3 Deviation from normal: Wound vac in place over surgical site infection <Lydia Epstein - Last Filed: 01/14/18 08:45> Dx/Plan (1) Seizure Code(s): R56.9 - UNSPECIFIED CONVULSIONS Status: Acute (2) Bradycardia Code(s): R00.1 - BRADYCARDIA, UNSPECIFIED Status: Acute (3) Fluid overload Code(s): E87.70 - FLUID OVERLOAD, UNSPECIFIED Status: Acute Qualifiers: Hypervolemia type: other Qualified Code(s): E87.79 - Other fluid overload (4) Hyperkalemia Code(s): E87.5 - HYPERKALEMIA Status: Acute (5) ESRD (end stage renal disease) on dialysis Code(s): N18.6 - END STAGE RENAL DISEASE; Z99.2 - DEPENDENCE ON RENAL DIALYSIS Status: Acute (6) DM2 (diabetes mellitus, type 2) Status: Acute Qualifiers: Diabetes mellitus residential insulin use: without residential use Diabetes mellitus complication status: with circulatory complication Diabetes mellitus complication detail: with other circulatory complications Qualified Code(s): E11.59 - Type 2 diabetes mellitus with other circulatory complications (7) CAD (coronary artery disease) Code(s): I25.10 - ATHSCL HEART DISEASE OF [place] CORONARY ARTERY W/O ANG PCTRS Status: Acute Qualifiers: Coronary Disease-Associated Artery/Lesion type: [place] artery [place] vs. transplanted heart: [place] heart Associated angina: without angina Qualified Code(s): I25.10 - Atherosclerotic heart disease of [place] coronary artery without angina pectoris (8) Anemia Code(s): D64.9 - ANEMIA, UNSPECIFIED Status: Acute Qualifiers: Anemia type: due to chronic kidney disease Chronic kidney disease stage: on chronic dialysis Qualified Code(s): N18.6 - End stage renal disease; D63.1 - Anemia in chronic kidney disease; Z99.2 - Dependence on renal dialysis (9) Lactic acid increased Code(s): E87.2 - ACIDOSIS Status: Resolved (10) Troponin level elevated Code(s): R74.8 - ABNORMAL LEVELS OF OTHER SERUM ENZYMES Status: Acute (11) Postoperative wound infection Code(s): T81.49XA - INFECTION FOLLOWING A PROCEDURE, OTHER SURGICAL SITE, INIT Status: Acute (12) Former tobacco use Code(s): Z87.891 - PERSONAL HISTORY OF NICOTINE DEPENDENCE Status: Acute - Plan Plan: Seizure, new onset Patient had witnessed tonic-clonic seizure in the ED that lasted 2 minutes. s/p 1g keppra -Consulted Neuro, appreciate recs -Continue keppra -Seizure precautions -Neuro checks Severe Bradycardia, resolved pt had episode of bradycardia to the 20's after the seizure. s/p 1mg atropine. EKG prior to this episode showed rate 75 with RBBB. Trops WNL Pt had h/o CAD s/p 1 stent Echo showed EF 45-50% -Consulted Dr. Liang with cardiology, appreciate recs. Plan for holter monitor outpatient -Monitor on tele -Hold all BB Fluid Overload, resolved Pt appeared fluid overloaded on CXR and has edema of BLE. This is likely 2/2 missed dialysis on Friday. Echo showed EF 45-50% -Consulted Dr. Madden with nephrology, appreciate recs. Plan for dialysis MWF -Consulted Dr. Liang with Cardiology Post-Op Wound Infection Pt with wound infection of inferior aspect of laparotomy wound with some purulent drainage. -Dr. Bonilla with general surgery consulted, appreciate recs -Blood cultures NGTD -Wound cx pending -Wound care consulted for wound vac. Wound vac currently in place Hyperkalemia, resolved K 5.5 initially with no peaked T waves. Pt s/p 1 amp calcium gluconate in ED. Resolved with dialysis -s/p dialysis -Monitor Elevated Troponin Initial trop 0.045. This could be 2/2 decreased clearance with ESRD. Concern with episode of bradycardia to the 20's. Per pt had recent cath in September that was "normal". Repeat trop trended down -Repeat trop and EKG if pt develops chest pain -Consulted Dr. Liang with cardiology, appreciate recs Elevated BNP Pt BNP was 2214.5. No hx in [facility] of prior BNP or echo. Per pt has had echo' s with Dr. Liang. Echo showed EF 45-50% -Consulted Dr. Liang with cardiology, appreciate recs Elevated Lactic Acid, resolved Lactic Acid 2.3. Pt with chills and new onset seizure. Afebrile and no elevated WBC count. Repeat Lactic Acid WNL -Blood cultures NGTD ESRD on HD Pt gets dialysis MWF and had recent revision of LUE fistula -Dr. Madden with nephrology has been consulted, appreciate recs -Plan for Dialysis MWF -Renal diet Anemia of CKD Pt Hb stable -Procrit weekly -Monitor DM2 Pt denies needing any medication for a few years. -Accuchecks ACHS -Mild SSI CAD s/p 1 stent Pt reports recent cath that was ok. s/p 1 stent several years ago -Aspirin -Plavix H/O tobacco abuse Pt is a former smoker with remote hx. -Encouraged continued cessation <Lydia Epstein - Last Filed: 01/14/18 08:45> (1) Seizure Code(s): R56.9 - UNSPECIFIED CONVULSIONS Status: Acute (2) Bradycardia Code(s): R00.1 - BRADYCARDIA, UNSPECIFIED Status: Acute (3) Fluid overload Code(s): E87.70 - FLUID OVERLOAD, UNSPECIFIED Status: Acute Qualifiers: Hypervolemia type: other Qualified Code(s): E87.79 - Other fluid overload (4) Hyperkalemia Code(s): E87.5 - HYPERKALEMIA Status: Acute (5) ESRD (end stage renal disease) on dialysis Code(s): N18.6 - END STAGE RENAL DISEASE; Z99.2 - DEPENDENCE ON RENAL DIALYSIS Status: Acute (6) DM2 (diabetes mellitus, type 2) Status: Acute Qualifiers: Diabetes mellitus residential insulin use: without residential use Diabetes mellitus complication status: with circulatory complication Diabetes mellitus complication detail: with other circulatory complications Qualified Code(s): E11.59 - Type 2 diabetes mellitus with other circulatory complications (7) CAD (coronary artery disease) Code(s): I25.10 - ATHSCL HEART DISEASE OF [place] CORONARY ARTERY W/O ANG PCTRS Status: Acute Qualifiers: Coronary Disease-Associated Artery/Lesion type: [place] artery [place] vs. transplanted heart: [place] heart Associated angina: without angina Qualified Code(s): I25.10 - Atherosclerotic heart disease of [place] coronary artery without angina pectoris (8) Anemia Code(s): D64.9 - ANEMIA, UNSPECIFIED Status: Acute Qualifiers: Anemia type: due to chronic kidney disease Chronic kidney disease stage: on chronic dialysis Qualified Code(s): N18.6 - End stage renal disease; D63.1 - Anemia in chronic kidney disease; Z99.2 - Dependence on renal dialysis (9) Lactic acid increased Code(s): E87.2 - ACIDOSIS Status: Resolved (10) Troponin level elevated Code(s): R74.8 - ABNORMAL LEVELS OF OTHER SERUM ENZYMES Status: Acute <Nik Neville - Last Filed: 01/14/18 10:54> Attending Addendum - Attending Addendum Date/Time: 01/14/18 1049 I personally evaluated the patient and discussed the management with Dr. Epstein. I agree with the History, Examination, Assessment and Plan documented above with any addition or exceptions noted below. Feels much better. Baseline. Vitals Nl. Afeb. LUngs CTA. Abd: WoundVac in pt. Seropurulent drainage. Stable for d[facility]c [facility] Neuro f/u, wound Care, dialysis and Holter monitor. <Nik Neville - Last Filed: 01/14/18 10:54>
[2018-01-14] MEDS: levETIRAcetam 500 MG TAB PO SCH (08:29)
[2018-01-14] MEDS: Lanthanum Carbonate 500 mg Tablet PO SCH ×3 (08:29→17:16)
[2018-01-14] MEDS: Fluticasone Propionate Nasal Spray 16 gm Bottle NASAL SCH (08:30)
--- NOTE | 2018-01-14 08:31 | PRG ---
DATE OF SERVICE: 01/14/2018 SUBJECTIVE: Mr. Linares is a 67-year-old male with ESRD - on maintenance hemodialysis and we are following up this patient for his regular dialysis. I have scheduled him for dialysis - 4 hours today. Fluid removal as tolerated. He also has developed a new onset seizure. Furthermore, he came in at the hospital noted to be bradycardic. Bradycardia has been resolved. Cardiology has evaluate d this patient. We feel that this is a drug-induced bradycardia. No other complaints today. He is feeling better. Wound VAC applied to his surgical wound in the abdomen. No complaints of chest pain or shortness of breath. PHYSICAL EXAMINATION: VITAL SIGNS: Blood pressure 127/41, heart rate 64, respiratory rate 17, temperature 97.9, pulse oxim etry 99%. GENERAL EXAM: Awake, sitting comfortable, obese, not in distress. SKIN: Adequate turgor. HEENT: He has slightly pale conjunctivae, anicteric sclerae. NECK: No neck mass, no carotid bruits, no JVD. CHEST: No deformities. LUNGS: Clear breath sounds. No wheezing, no crackles. HEART: Normal sinus rhythm. No murmur, no gallops, no rubs. ABDOMEN: Globular, soft, nontender. No masses. Positive for surgical wound and positive for abdomi nal wound VAC. EXTREMITIES: Trace edema. Medications of 01/14/2018 was reviewed. LABORATORY DATA: Laboratories of 01/15/2080. White count 7.4, hemoglobin 8.4. Sodium 134, potassiu m 4.3, chloride 94, carbon dioxide 28, BUN 34, creatinine 7.03, glucose 114, calcium 8.8. ASSESSMENT AND PLAN: 1. Anemia, continuing weekly Epogen. 2. End-stage renal disease, stable. Continuing Friday, Friday, Friday dialysis. Fluid removal o nly as tolerated. 3. Surgical wound - currently wound VAC applied. 4. Seizure disorder - currently on anti-seizure medications. 5. Anemia, continuing weekly Epogen. Recheck CBC in a.m.
--- NOTE | 2018-01-14 09:48 | EEG ---
Referring Physician: ALDO HANSEN EEG # [id number] TEST TYPE: ROUTINE PORTABLE INPATIENT REPORT: AN EEG USING THE [employer]NATIONAL TEN-TWENTY SYSTEM OF ELECTRODE PLACEMENT WAS PERFORMED. The waking background is a low amplitude 8-9 hertz alpha frequency. The patient remained awake throughout the study. Photic stimulation was unremarkable. No epileptiform features were seen. IMPRESSION: THIS IS A NORMAL AWAKE EEG. Letter Of Credit Clerk: VINICIUS Community Relations Manager: [email or web address]
[2018-01-14] MEDS: Fish Oil 1,000 MG CAP PO SCH (21:22)
[2018-01-14] MEDS: Clopidogrel Bisulfate 75 MG TAB PO SCH (21:22)
[2018-01-14] MEDS: Pravastatin Sodium 20 MG TAB PO SCH (21:22)
[2018-01-14] MEDS: Ubidecarenone 50 MG CAP PO SCH (21:22)
[2018-01-14] MEDS: Vit A,C & E/Lutein/Minerals Tablet PO SCH (21:23)
[2018-01-14] MEDS: Aspirin 81 mg Enteric Coated Tablet PO SCH (21:23)
[2018-01-15] MEDS: Fluticasone Propionate Nasal Spray 16 gm Bottle NASAL SCH ×3 (01:20→21:37)
[2018-01-15 05:24] LABS: #Eosinphils 0.1 thou/uL (0.0-0.7); #Lymphocytes 1.1 thou/uL (1.20-3.40); #Monocytes 0.8 thou/uL (0.11-0.59); %Basophils 0.5 % (0.0-1.0); %Eosinophils 2.1 % (0.0-10.0); %Lymphocytes 15.8 % (21.0-51.0); %Monocytes 11.5 % (0.0-10.0); %Neutrophils 70.1 % (42.0-75.0); Hemoglobin 9.4 g/dL (14.0-18.0); Mean Corpuscular HGB CONC 30.8 g/dL (32.0-36.0); Mean Platelet Volume 7.5 fL (7.4-10.4); Platelet Count 282 thou/uL (130-400); RBC Distribution Width 13.8 % (11.5-14.5); Red Blood Cell (RBC) Count 3.03 mill/uL (4.70-6.10); White Blood Cell (WBC) Count 7.2 thou/uL (4.8-10.8)
[2018-01-15 05:35] LABS: Anion Gap 13 mmol/L (10-20); BUN (Urea Nitrogen) 19 mg/dL (8.4-25.7); Calc. Creatinine Clearance 25 mL/min (70-130); Calcium 9.3 mg/dL (7.8-10.44); Carbon Dioxide 29 mmol/L (23-31); Chloride 96 mmol/L (98-107); Estimated GFR-MDRD 11; Glucose 106 mg/dL (80-115); Potassium 4.2 mmol/L (3.5-5.1); Sodium 134 mmol/L (136-145)
--- NOTE | 2018-01-15 07:48 | PRG ---
DATE OF SERVICE: 01/15/2018 SUBJECTIVE: Mr. Linares is a 67-year-old male being followed up for his maintenance hemodialy sis. He underwent dialysis yesterday without any difficulty. He is doing well. He has also a wound VAC on a surgical abdominal wound. He is doing well. No other complaints today. The patient denie s any chest pain, shortness of breath. OBJECTIVE: VITAL SIGNS: Blood pressure 139/63, heart rate 88, respiratory rate 14, temperature 98.3, pulse ox 9 9%. GENERAL: Awake, supine, comfortable, not in distress. SKIN: Adequate turgor. HEENT: Pinkish conjunctivae, anicteric sclerae. NECK: No neck mass, no carotid bruits, no JVD. CHEST: No deformities. LUNGS: Clear breath sounds. HEART: Normal sinus rhythm. No murmur, no gallops, no rubs. ABDOMEN: Globular, soft, nontender. EXTREMITIES: No edema, no deformities. MEDICATIONS: 01/15/2018 - Reviewed. LABORATORY: 01/15/2018 - White count 7.2, hemoglobin 9.4, sodium 134, potassium 4.2, chloride 96, ca rbon dioxide 29, BUN 19, creatinine 5.18, glucose 106, calcium 9.3. ASSESSMENT AND PLAN: 1. End-stage renal disease, stable. Continuing Friday, Friday, Friday hemodialysis. Fluid remov al as tolerated by the patient. So far with the last dialysis he tolerated the fluid removal. 2. Anemia. The patient is currently on his maintenance Epogen at 7500 units subcu q. week. 3. Abdominal wound - surgical scar - currently on wound VAC. Doing well arranging home wound VAC. therapy. I agree with current management.
--- NOTE | 2018-01-15 09:02 | PDOC.FM ---
- Subjective Subjective: Patient reports that he feels great. He is having some leaking from his wound vac, but wound care is supposed to come see him today. He denies any chest pain , SOB, lightheadedness, N/V, seizure activity, palpitations. - Objective MAR Reviewed: Yes Vital Signs & Weight: Vital Signs (12 hours) Temp Pulse Resp BP BP Pulse Ox 01/15/18 07:56 99.3 F 72 16 178/77 H 93 L 01/15/18 04:00 98.3 F 88 14 139/63 99 01/14/18 23:54 98.5 F 66 14 131/63 93 L Weight Admit Weight 129.228 kg Weight 122.47 kg I&O: 01/14/18 01/15/18 01/16/18 06:59 06:59 06:59 Intake Total 500 Output Total 180 450 Balance 320 -450 Result Diagrams: 01/15/18 04:35 01/15/18 04:35 Phys Exam - Physical Examination Constitutional: NAD HEENT: moist MMs, sclera anicteric Respiratory: no wheezing, no rales, no rhonchi, clear to auscultation bilateral Cardiovascular: RRR, no significant murmur, no rub Gastrointestinal: soft, non-tender, no distention, positive bowel sounds Psychiatric: normal affect, A&O x 3 Deviation from normal: wound vac in place over abdominal wound Dx/Plan (1) Seizure Code(s): R56.9 - UNSPECIFIED CONVULSIONS Status: Acute (2) Bradycardia Code(s): R00.1 - BRADYCARDIA, UNSPECIFIED Status: Acute (3) Fluid overload Code(s): E87.70 - FLUID OVERLOAD, UNSPECIFIED Status: Acute Qualifiers: Hypervolemia type: other Qualified Code(s): E87.79 - Other fluid overload (4) Hyperkalemia Code(s): E87.5 - HYPERKALEMIA Status: Acute (5) ESRD (end stage renal disease) on dialysis Code(s): N18.6 - END STAGE RENAL DISEASE; Z99.2 - DEPENDENCE ON RENAL DIALYSIS Status: Acute (6) DM2 (diabetes mellitus, type 2) Status: Acute Qualifiers: Diabetes mellitus halfway insulin use: without vermin exterminator use Diabetes mellitus complication status: with circulatory complication Diabetes mellitus complication detail: with other circulatory complications Qualified Code(s): E11.59 - Type 2 diabetes mellitus with other circulatory complications (7) CAD (coronary artery disease) Code(s): I25.10 - ATHSCL HEART DISEASE OF [place] CORONARY ARTERY W/O ANG PCTRS Status: Acute Qualifiers: Coronary Disease-Associated Artery/Lesion type: [place] artery [place] vs. transplanted heart: [place] heart Associated angina: without angina Qualified Code(s): I25.10 - Atherosclerotic heart disease of [place] coronary artery without angina pectoris (8) Anemia Code(s): D64.9 - ANEMIA, UNSPECIFIED Status: Acute Qualifiers: Anemia type: due to chronic kidney disease Chronic kidney disease stage: on chronic dialysis Qualified Code(s): N18.6 - End stage renal disease; D63.1 - Anemia in chronic kidney disease; Z99.2 - Dependence on renal dialysis (9) Lactic acid increased Code(s): E87.2 - ACIDOSIS Status: Resolved (10) Troponin level elevated Code(s): R74.8 - ABNORMAL LEVELS OF OTHER SERUM ENZYMES Status: Acute (11) Postoperative wound infection Code(s): T81.49XA - INFECTION FOLLOWING A PROCEDURE, OTHER SURGICAL SITE, INIT Status: Acute (12) Former tobacco use Code(s): Z87.891 - PERSONAL HISTORY OF NICOTINE DEPENDENCE Status: Acute - Plan Plan: Seizure, new onset Patient had witnessed tonic-clonic seizure in the ED that lasted 2 minutes. Was initiated on keppra, but neuro recommended d/c'ing that. -Consulted Neuro, appreciate recs -Seizure precautions Severe Bradycardia, resolved pt had episode of bradycardia to the 20's after the seizure. No further episodes since then. s/p 1mg atropine. EKG prior to this episode showed rate 75 with RBBB. Trops WNL Pt had h/o CAD s/p 1 stent Echo showed EF 45-50% -Consulted Dr. Liang with cardiology, appreciate recs. Plan for holter monitor outpatient -Monitor on tele -Hold all BB Fluid Overload, resolved Pt appeared fluid overloaded on CXR and has edema of BLE. This is likely 2/2 missed dialysis on Friday. Echo showed EF 45-50% -Consulted Dr. Madden with nephrology, appreciate recs. Plan for dialysis MWF -Consulted Dr. Liang with Cardiology Post-Op Wound Infection Pt with wound infection of inferior aspect of laparotomy wound with some purulent drainage. -Dr. Bonilla with general surgery consulted, appreciate recs -Blood cultures NGTD -Wound cx pending -Wound care consulted for wound vac. Wound vac currently in place. Needs home health for wound care. Hyperkalemia, resolved K 5.5 initially with no peaked T waves. Pt s/p 1 amp calcium gluconate in ED. Resolved with dialysis -s/p dialysis -Monitor Elevated Troponin Initial trop 0.045. This could be 2/2 decreased clearance with ESRD. Concern with episode of bradycardia to the 20's. Per pt had recent cath in September that was "normal". Repeat trop trended down -Repeat trop and EKG if pt develops chest pain -Consulted Dr. Liang with cardiology, appreciate recs Elevated BNP Pt BNP was 2214.5. No hx in [facility] of prior BNP or echo. Per pt has had echo' s with Dr. Liang. Echo showed EF 45-50% -Consulted Dr. Liang with cardiology, appreciate recs Elevated Lactic Acid, resolved Lactic Acid 2.3. Pt with chills and new onset seizure. Afebrile and no elevated WBC count. Repeat Lactic Acid WNL -Blood cultures NGTD ESRD on HD Pt gets dialysis MWF and had recent revision of LUE fistula -Dr. Madden with nephrology has been consulted, appreciate recs -Plan for Dialysis MWF -Renal diet Anemia of CKD Pt Hb stable -Procrit weekly -Monitor DM2 Pt denies needing any medication for a few years. -Accuchecks ACHS -Mild SSI CAD s/p 1 stent Pt reports recent cath that was ok. s/p 1 stent several years ago -Aspirin -Plavix H/O tobacco abuse Pt is a former smoker with remote hx. -Encouraged continued cessation
[2018-01-15] MEDS ORDERED: Sevelamer Carbonate 800 MG TAB PO PRN (09:05)
[2018-01-15] MEDS ORDERED: ISOVUE-370 76%-LOCM 1 ML ONE (09:36)
[2018-01-15] MEDS ORDERED: Iopamidol 370 76% 50 ML VIAL FS ONE (09:36)
[2018-01-15] MEDS: Lanthanum Carbonate 500 mg Tablet PO SCH ×3 (09:48→16:56)
[2018-01-15] MEDS: cloNIDine 0.2 MG TAB PO SCH ×2 (09:49→22:04)
[2018-01-15] MEDS: Sevelamer Carbonate 800 MG TAB PO SCH ×2 (11:47→16:32)
[2018-01-15] MEDS: Cinacalcet HCl 30 MG TAB PO SCH (11:47)
[2018-01-15] MEDS ORDERED: Sevelamer Carbonate 800 MG TAB PO SCH (12:00)
[2018-01-15] MEDS: Acetaminophen 325 MG TAB PO PRN (15:37)
--- NOTE | 2018-01-15 16:12 | PDOC.CTH ---
Cardiology Progress Note - Subjective Doing well. NO complaints. Pt with intermittent 2 to 1 block yesterday at noon. No symptoms. - Objective Vital Signs Temp Pulse Resp BP BP Pulse Ox 01/15/18 15:27 99.7 F H 69 16 128/57 L 92 L 01/15/18 12:00 99 F 67 16 127/60 92 L 01/15/18 08:00 93 L 01/15/18 07:56 99.3 F 72 16 178/77 H 93 L Admit Weight 284 lb 14.4 oz Weight 270 lb 01/14/18 01/15/18 01/16/18 06:59 06:59 06:59 Intake Total 500 Output Total 180 450 Balance 320 -450 - Physical Examination General/Neuro: alert & oriented x3, NAD Neck: carotid US brisk, no JVD present Lungs: unlabored respirations Heart: other: (IRR) Abdomen: no HSM, NT/ND, soft Extremities: + femoral B - Labs Result Diagrams: 01/15/18 04:35 01/15/18 04:35 Troponin/CKMB CK-MB (CK-2) 2.0 ng/mL (0-6.6) 01/12/18 05:57 Troponin I 0.041 ng/mL (< 0.028) H 01/12/18 13:22 - Assessment/Plan Syncope/seizure mild to moderate CAD ESRD Pt with what appears to be 2:1 HB yesterday though no symptoms Difficult though given recent open wound and concerns for infection Will have EP see today or tomorrow for recommendations otherwise, cv status stable
[2018-01-15 16:16] LABS: INR-International Normal Ratio 1.5; PTT 33.9 SEC (22.9-36.1); Prothrombin Time 17.9 SEC (12.0-14.7)
[2018-01-15 16:34] LABS: Cardiac Risk 3.1 (Less than 4.5)
--- NOTE | 2018-01-15 18:20 | CT ---
CONTRAST ENHANCED CT IMAGES ABDOMEN AND PELVIS: 01/15/18 HISTORY: Patient with gastric sleeve. Contrast enhanced CT images of the abdomen and pelvis is obtained. IV and oral contrast was given. The lung bases are unremarkable. The liver, and spleen are unremarkable. There is an area of calcification along the dome of the left hepatic lobe. PO contrast was given and fills the stomach and small bowel. There is fistulous communication between what appears to be a loop of small bowel in the anterior abdominal wall incision. The ingested mater ial extends through the fistulous communication into the anterior abdominal wall incision and its pac mariann material. Contrast does pass distally and does extend into the colon. No evidence of bowel obstr uction seen. Both kidneys are atrophied. There is an approximately 2.5 cm area of exophytic density along the mid pole of the left kidney possibly representing a left renal cyst or solid mass. No evidence of intra-abdominal abscess seen. Extensive vascular calcifications seen in the abdominal aorta, celiac artery, superior mesenteric art scoorro, inferior mesenteric artery, and renal arteries. Calcifications also extend into the pelvic vesse ls. IMPRESSION: There appears to be fistulous communication between small bowel and the anterior abdominal wall incis ion which is now packed with packing material. POS: TOYIN
--- NOTE | 2018-01-15 19:30 | PRG ---
DATE OF SERVICE: 01/15/2018 HISTORY OF PRESENT ILLNESS: Mr. Linares has been hospitalized now for 4 days. He was admitted seconda ry to fluid overload after missing a day of dialysis. While he was in the emergency room, I had eval uated him and found him to have a wound infection of his midline abdominal wound, which I opened at t he time of his presentation. The wound has been cared for subsequently with a wound VAC. The patient states that he feels well. He is eating well. He notes that he has not had a bowel move ment recently. He denies any pain. He has been afebrile and hemodynamically stable. Today, I came by to see him, believing that he was going to be discharged today or tomorrow. He hung mac had some abnormal drainage in his wound VAC dressing. When I removed this, there was the foul sm ell of enteric drainage. There was obvious material consistent with what I suspect is a small bowel leak into his wound. The other incisions appear to be healing appropriately. The dressing was initi ally dressed with gauze, but I spoke to the wound care team who is going to replace the wound VAC adria ssing. He is currently 16 days out from his laparotomy that I performed during my attempt to perform a sleev e gastrectomy on him. LABORATORY STUDIES: His CBC from today shows a stable hemoglobin of 9.4 with a white blood cell coun t of 7.2 and no evidence of left shift. Chemistry panel is essentially stable for him. His blood hutchinson gars have been stable since admission. 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 At this juncture out from his surgery, an attempted exploration and repair of the leak would almost certainly be disastrous in the further wound problems. Therefore, we will recommend payam t he be n.p.o. except for his medications. We will start him on TPN. We will continue wound care wi th a wound VAC for now. He will certainly need to be hospitalized for further period of time. At so me point, since I would anticipate a potentially lengthy course of requiring TPN, he may require a mo re long-term IV access than his current central line and we may need to consider a long-term acute ca re placement. I discussed all this in detail with the patient and his given this unfortunate galo rn of events.
[2018-01-15] MEDS: Aspirin 81 mg Enteric Coated Tablet PO SCH (21:18)
[2018-01-15] MEDS: Vit A,C & E/Lutein/Minerals Tablet PO SCH (21:18)
[2018-01-15] MEDS: Pravastatin Sodium 20 MG TAB PO SCH (21:19)
[2018-01-15] MEDS: Fish Oil 1,000 MG CAP PO SCH (21:19)
[2018-01-15] MEDS: Ubidecarenone 50 MG CAP PO SCH (21:19)
[2018-01-15] MEDS: Clopidogrel Bisulfate 75 MG TAB PO SCH (21:20)
[2018-01-15] MEDS: POTASSIUM CHLORIDE IV SCH (22:20)
[2018-01-15] MEDS: CALCIUM GLUCONATE IV SCH (22:20)
[2018-01-15] MEDS: SODIUM CHLORIDE IV SCH (22:20)
[2018-01-15] MEDS: [UNRECOGNIZED DRUG - OTHER] IV SCH (22:20)
[2018-01-16 05:20] LABS: #Eosinphils 0.2 thou/uL (0.0-0.7); #Monocytes 0.9 thou/uL (0.11-0.59); #Neutrophils 4.6 thou/uL (1.40-6.50); %Basophils 0.5 % (0.0-1.0); %Eosinophils 2.9 % (0.0-10.0); %Lymphocytes 15.1 % (21.0-51.0); %Monocytes 12.8 % (0.0-10.0); %Neutrophils 68.7 % (42.0-75.0); Hemoglobin 8.9 g/dL (14.0-18.0); Mean Corpuscular HGB CONC 31.1 g/dL (32.0-36.0); Mean Corpuscular Hemoglobin 31.1 pg (27.0-31.0); Mean Platelet Volume 7.2 fL (7.4-10.4); Platelet Count 248 thou/uL (130-400); RBC Distribution Width 13.9 % (11.5-14.5); Red Blood Cell (RBC) Count 2.84 mill/uL (4.70-6.10); White Blood Cell (WBC) Count 6.7 thou/uL (4.8-10.8)
[2018-01-16 05:42] LABS: ALT (SGPT) Less than 7 U/L (8-55); AST (SGOT) 16 U/L (5-34); Albumin 3.2 g/dL (3.4-4.8); Alkaline Phosphatase 56 U/L (40-150); Anion Gap 13 mmol/L (10-20); BUN (Urea Nitrogen) 26 mg/dL (8.4-25.7); Bilirubin, Total 0.4 mg/dL (0.2-1.2); Calc. Creatinine Clearance 19 mL/min (70-130); Carbon Dioxide 29 mmol/L (23-31); Chloride 95 mmol/L (98-107); Estimated GFR-MDRD 8; Globulin 4.6 g/dL (2.4-3.5); Glucose 134 mg/dL (80-115); Magnesium 2.1 mg/dL (1.6-2.6); Phosphorus 3.5 mg/dL (2.3-4.7); Potassium 4.1 mmol/L (3.5-5.1); Protein, Total 7.8 g/dL (5.8-8.1); Sodium 133 mmol/L (136-145)
--- NOTE | 2018-01-16 08:29 | PRG ---
DATE OF SERVICE: 01/16/2018 SUBJECTIVE: Mr. Linares is hospital day #5. He was admitted initially for fluid overload and feeling poorly after missing dialysis. He was recognized to have an abdominal wound infection at the time of his presentation. This was opened. His laparotomy was from a failed attempt at a bariatric surgery about 16 days ago. Unfortunately, yesterday, noted enteric fluid within the wound consistent with a small bowel fistula. His VAC was removed at that time and a CT scan was obtained confirming my susp icions. There is no evidence of intra-abdominal abscess. It appears that the leak is from an anteri or loop of small bowel draining into the wound. He has no complaints. He tells me he is resting well and has minimal discomfort. He was made n.p.o. yesterday and TPN has been initiated. PHYSICAL EXAMINATION: VITAL SIGNS: He is afebrile, pulse 68, blood pressure 151/68. LUNGS: Clear to auscultation. ABDOMEN: Soft. All incisions are healing appropriately except for the large open midline abdominal wound, the inferior aspect of which was opened and has a communication with the small bowel internall y. Bowel sounds are present and normoactive. LABORATORY STUDIES: His CBC remains unremarkable with a white blood cell count of 6.7, hemoglobin of 8.9. His comprehensive metabolic panel shows minimal electrolyte abnormalities. His sodium and chl oride are a little bit low. His albumin level is a little low at 3.2. His prealbumin when checked y esterday at the initiation of his TPN was low and at 9.0. Magnesium and phosphorus are both normal. ASSESSMENT AND PLAN: The patient with an unfortunate enterocutaneous fistula. He had extraordinaril y dense intra-abdominal adhesions at the time of his laparotomy and at 16 days out from surgery I thi nk it would be a mistake to try to find the source of the leak and repair it. I think it is much mor e likely to cause ongoing problems and complications and then to treat the fistula expectantly. So f or now, I would recommend keeping him n.p.o. except for his medications, maintaining TPN and good wou nd care. He does not seem to require any antibiotics at this time. Depending upon the fluid output, may need to consider starting somatostatin to decrease the fluid output.
--- NOTE | 2018-01-16 09:02 | PDOC.FM ---
- Subjective Subjective: Patient denies any N/V, diarrhea. He reports some mild abdominal discomfort. He denies F/C. He reports continued leak from his abdominal wound. - Objective MAR Reviewed: Yes Vital Signs & Weight: Vital Signs (12 hours) Temp Pulse Resp BP BP Pulse Ox 01/16/18 04:00 98.6 F 68 19 151/68 H 93 L 01/16/18 00:00 98.2 F 59 L 15 137/63 93 L 01/15/18 22:04 118/56 L Weight Admit Weight 129.228 kg Weight 78.653 kg I&O: 01/15/18 01/16/18 01/17/18 06:59 06:59 06:59 Intake Total 2260 Output Total 450 Balance 1810 Result Diagrams: 01/16/18 04:49 01/16/18 04:49 <Lydia Epstein - Last Filed: 01/16/18 08:57> - Objective Vital Signs & Weight: Vital Signs (12 hours) Temp Pulse Resp BP Pulse Ox 01/16/18 04:00 98.6 F 68 19 151/68 H 93 L 01/16/18 00:00 98.2 F 59 L 15 137/63 93 L Weight Admit Weight 129.228 kg Weight 78.653 kg I&O: 01/15/18 01/16/18 01/17/18 06:59 06:59 06:59 Intake Total 2260 Output Total 450 Balance 1810 Result Diagrams: 01/16/18 04:49 01/16/18 04:49 <Nik Neville - Last Filed: 01/16/18 11:12> Phys Exam - Physical Examination Constitutional: NAD HEENT: moist MMs, sclera anicteric Respiratory: no wheezing, no rales, no rhonchi, clear to auscultation bilateral Cardiovascular: RRR, no significant murmur, no rub Gastrointestinal: soft, no distention, positive bowel sounds mildly TTP Musculoskeletal: pulses present, edema present (trace edema) Psychiatric: normal affect, A&O x 3 Deviation from normal: abdominal wound with dressing in place and continued leak <Lydia Epstein - Last Filed: 01/16/18 08:57> Dx/Plan (1) Seizure Code(s): R56.9 - UNSPECIFIED CONVULSIONS Status: Acute (2) Bradycardia Code(s): R00.1 - BRADYCARDIA, UNSPECIFIED Status: Acute (3) Fluid overload Code(s): E87.70 - FLUID OVERLOAD, UNSPECIFIED Status: Acute Qualifiers: Hypervolemia type: other Qualified Code(s): E87.79 - Other fluid overload (4) Hyperkalemia Code(s): E87.5 - HYPERKALEMIA Status: Acute (5) ESRD (end stage renal disease) on dialysis Code(s): N18.6 - END STAGE RENAL DISEASE; Z99.2 - DEPENDENCE ON RENAL DIALYSIS Status: Acute (6) DM2 (diabetes mellitus, type 2) Status: Acute Qualifiers: Diabetes mellitus nursing home insulin use: without vermin exterminator use Diabetes mellitus complication status: with circulatory complication Diabetes mellitus complication detail: with other circulatory complications Qualified Code(s): E11.59 - Type 2 diabetes mellitus with other circulatory complications (7) CAD (coronary artery disease) Code(s): I25.10 - ATHSCL HEART DISEASE OF [place] CORONARY ARTERY W/O ANG PCTRS Status: Acute Qualifiers: Coronary Disease-Associated Artery/Lesion type: [place] artery [place] vs. transplanted heart: [place] heart Associated angina: without angina Qualified Code(s): I25.10 - Atherosclerotic heart disease of [place] coronary artery without angina pectoris (8) Anemia Code(s): D64.9 - ANEMIA, UNSPECIFIED Status: Acute Qualifiers: Anemia type: due to chronic kidney disease Chronic kidney disease stage: on chronic dialysis Qualified Code(s): N18.6 - End stage renal disease; D63.1 - Anemia in chronic kidney disease; Z99.2 - Dependence on renal dialysis (9) Lactic acid increased Code(s): E87.2 - ACIDOSIS Status: Resolved (10) Troponin level elevated Code(s): R74.8 - ABNORMAL LEVELS OF OTHER SERUM ENZYMES Status: Acute (11) Postoperative wound infection Code(s): T81.49XA - INFECTION FOLLOWING A PROCEDURE, OTHER SURGICAL SITE, INIT Status: Acute (12) Former tobacco use Code(s): Z87.891 - PERSONAL HISTORY OF NICOTINE DEPENDENCE Status: Acute (13) Enterocutaneous fistula Code(s): K63.2 - FISTULA OF INTESTINE Status: Acute - Plan Plan: Enterocutaneous 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 -NPO with TPN -Wound care consulted for wound vac -Pt will likely need PICC placement for long-term TPN -General surgery on board, appreciate recs Seizure, new onset Patient had witnessed tonic-clonic seizure in the ED that lasted 2 minutes. Was initiated on keppra, but neuro recommended d/c'ing that. -Consulted Neuro, appreciate recs -Seizure precautions Severe Bradycardia, resolved pt had episode of bradycardia to the 20's after the seizure. No further episodes since then. s/p 1mg atropine. EKG prior to this episode showed rate 75 with RBBB. Trops WNL Pt had h/o CAD s/p 1 stent Echo showed EF 45-50% -Consulted Dr. Liang with cardiology, appreciate recs. Plan for holter monitor outpatient -Monitor on tele -Hold all BB 2:1 Heart Block, resolved Pt had an episode of heart block yesterday afternoon that has resolved. He is currently in NS[facility]. -Dr. Liang recommended continued monitoring and for EP to come see him. Will follow cards and EP recs Fluid Overload, resolved Pt appeared fluid overloaded on CXR and has edema of BLE. This is likely 2/2 missed dialysis on Friday. Echo showed EF 45-50% -Consulted Dr. Madden with nephrology, appreciate recs. Plan for dialysis MWF -Consulted Dr. Liang with Cardiology Post-Op Wound Infection Pt with wound infection of inferior aspect of laparotomy wound with some purulent drainage. -Dr. Bonilla with general surgery consulted, appreciate recs -Blood cultures NGTD -Wound cx pending -Wound care consulted for wound vac. Wound vac currently in place. Needs home health for wound care. Hyperkalemia, resolved K 5.5 initially with no peaked T waves. Pt s/p 1 amp calcium gluconate in ED. Resolved with dialysis -s/p dialysis -Monitor Elevated Troponin Initial trop 0.045. This could be 2/2 decreased clearance with ESRD. Concern with episode of bradycardia to the 20's. Per pt had recent cath in September that was "normal". Repeat trop trended down -Repeat trop and EKG if pt develops chest pain -Consulted Dr. Liang with cardiology, appreciate recs Elevated BNP Pt BNP was 2214.5. [facility] [place] [facility] prior BNP or echo. Per pt has had echo' s with Dr. Liang. Echo showed EF 45-50% -Consulted Dr. Liang with cardiology, appreciate recs Elevated Lactic Acid, resolved Lactic Acid 2.3. Pt with chills and new onset seizure. Afebrile and no elevated WBC count. Repeat Lactic Acid WNL -Blood cultures NGTD ESRD on HD Pt gets dialysis MWF and had recent revision of LUE fistula -Dr. Madden with nephrology has been consulted, appreciate recs -Plan for Dialysis MWF -Renal diet Anemia of CKD Pt Hb stable -Procrit weekly -Monitor DM2 Pt denies needing any medication for a few years. -Accuchecks ACHS -Mild SSI CAD s/p 1 stent Pt reports recent cath that was ok. s/p 1 stent several years ago -Aspirin -Plavix H/O tobacco abuse Pt is a former smoker with remote hx. -Encouraged continued cessation <Lydia Epstein - Last Filed: 01/16/18 08:57> (1) Seizure Code(s): R56.9 - UNSPECIFIED CONVULSIONS Status: Acute (2) Bradycardia Code(s): R00.1 - BRADYCARDIA, UNSPECIFIED Status: Acute (3) Fluid overload Code(s): E87.70 - FLUID OVERLOAD, UNSPECIFIED Status: Acute Qualifiers: Hypervolemia type: other Qualified Code(s): E87.79 - Other fluid overload (4) Hyperkalemia Code(s): E87.5 - HYPERKALEMIA Status: Acute (5) ESRD (end stage renal disease) on dialysis Code(s): N18.6 - END STAGE RENAL DISEASE; Z99.2 - DEPENDENCE ON RENAL DIALYSIS Status: Acute (6) DM2 (diabetes mellitus, type 2) Status: Acute Qualifiers: Diabetes mellitus vermin exterminator insulin use: without vermin exterminator use Diabetes mellitus complication status: with circulatory complication Diabetes mellitus complication detail: with other circulatory complications Qualified Code(s): E11.59 - Type 2 diabetes mellitus with other circulatory complications (7) CAD (coronary artery disease) Code(s): I25.10 - ATHSCL HEART DISEASE OF [place] CORONARY ARTERY W/O ANG PCTRS Status: Acute Qualifiers: Coronary Disease-Associated Artery/Lesion type: [place] artery [place] vs. transplanted heart: [place] heart Associated angina: without angina Qualified Code(s): I25.10 - Atherosclerotic heart disease of [place] coronary artery without angina pectoris (8) Anemia Code(s): D64.9 - ANEMIA, UNSPECIFIED Status: Acute Qualifiers: Anemia type: due to chronic kidney disease Chronic kidney disease stage: on chronic dialysis Qualified Code(s): N18.6 - End stage renal disease; D63.1 - Anemia in chronic kidney disease; Z99.2 - Dependence on renal dialysis (9) Lactic acid increased Code(s): E87.2 - ACIDOSIS Status: Resolved (10) Troponin level elevated Code(s): R74.8 - ABNORMAL LEVELS OF OTHER SERUM ENZYMES Status: Acute <Nik Neville - Last Filed: 01/16/18 11:12> Attending Addendum - Attending Addendum Date/Time: 01/16/18 1110 I personally evaluated the patient and discussed the management with Dr. Epstein. I agree with the History, Examination, Assessment and Plan documented above with any addition or exceptions noted below. No c/o's. Vitals stable. Afeb. Enteral leak noted. NPO w/ TPN. Wound vac. Likely will need SN placement for prolonged wound care and continued dialysis. <Nik Neville - Last Filed: 01/16/18 11:12>
--- NOTE | 2018-01-16 09:03 | CON ---
DATE OF CONSULTATION: 01/15/2018 ELECTROPHYSIOLOGY CONSULTATION REFERRING PHYSICIAN: Dr. Liang. I am seeing Mr. Linares at our [facility] as electrophysiology oracle distribution consultant. His problems are: 1. Conduction disease. A. Marked prolonged first degree AV block at baseline. B. Right bundle branch block. C. Mobitz type 1 second degree AV block at the time of sleep on 01/14/2018 on telemetry. 2. History of syncope monitor associated with a low pulse in 20s as well as seizures, incontinence and tongue biting. A. Mild hyperkalemia and uremia at baseline. 3. End-stage renal disease with involuntary noncompliance with hemodialysis prior to admission. 4. History of coronary artery disease with prior stent placement in the past. 5. History of morbid obesity with attempted gastric sleeve surgery, but failed due to adhesions from prior laparotomy recently. A. Abdominal wound infection requiring wound care. 6. Risk factors including type 2 diabetes, hypertension, obesity, remote smoking. ALLERGIES: VANCOMYCIN. MEDICATIONS PRIOR TO ADMISSION: Included Coenzyme Q10, Ecotrin, clonidine, sertraline, Plavix, Fish Oil supplements, carvedilol, pravastatin, Fosrenol, vitamin A, C and zinc, fluticasone, sevelamer carbonate, Sensipar. SUBJECTIVE: Mr. Linares was admitted with symptoms of generalized weakness, lightheadedness, and fatigue after missing dialysis Friday before he also had difficult recovery from a gastric sleeve surgery with abdominal incisional infection developing. The gastric sleeve surgery was not carried out due to extensive adhesion that happened about 10 days ago. He also went for revision of his AV fistula in [place] of left upper arm. In the ER, he underwent CT scanning while in the CT and he was noted to have seizure for about 2 minutes, associated with incontinence and tongue biting, his heart rate was noted to be in 20s ever since he is being monitored noted to be in sinus rhythm with a prolonged WY interval. While asleep during hemodialysis, he had an episode of heart rates in the high 30s with Mobitz type 1 second degree AV block. He is asymptomatic ever since his admission episode of syncope. He has no new angina, no fever, chills, cough. At this point he is receiving antibiotic for infection. Wound care is taking care of his wound. REVIEW OF SYSTEMS: Rest of twelve point system otherwise unremarkable. PAST MEDICAL HISTORY: As above, also history of left upper extremity AV fistula placement requiring revision recently. SOCIAL HISTORY: Remote history of smoking for 10-15 years. Smokes [place] cigars on occasion. Denies drug use, ETOH abuse. FAMILY HISTORY: Significant for type 2 diabetes and mother has aortic aneurysm. OBJECTIVE DATA: VITAL SIGNS: Blood pressure is 128/57, heart rate 69, respiration 16, temperature 99.7 degrees Fahrenheit. GENERAL: An alert and oriented man in no apparent distress with markedly elevated BMI. NECK: Supple. Jugular veins not distended. CHEST: Coarse without crackles. HEART: Sounds are regular to rate and rhythm. Conducting murmur heard. ABDOMEN: Benign, but with midline incision on bandages. Bowel sounds are positive. EXTREMITIES: Lower extremity with 1+ edema. Prior amputation is noted. DATABASE: EKGs reviewed initially reveals sinus rhythm, rate of 75 beats per minute, prolonged [place] 300 milliseconds is noted. Subsequent EKGs reveal sinus shyam, occasional PVCs and again episode of Mobitz type 1 AV block on the 24th noon. LABORATORY DATA: White count 7.2, hemoglobin 9.4, platelet count is 282. INR 1.5. Sodium 134, potassium 4.2, BUN is 19, creatinine 5.18. Initial potassium was 5.5, magnesium 1.9 on 01/12/2018. The blood cultures negative x48 hours. A 2D echo from 01/12/2018 shows LVEF 45%-50%, right ventricular enlargement, mild to moderate mitral and tricuspid regurgitation. ASSESSMENT AND PLAN: Mr. Linares is a 67-year-old man who has history of end- stage renal disease on hemodialysis, coronary artery disease with remote stent, reduced LVEF with mild degree on echo, who also has presented with [place] hypertension and development of bradycardia. He had a seizure in the CT scan shows then associated some low pulse readings. Subsequently, his heart rate has not revealed marked bradycardia except for an episode when he was sleeping. He may have sleep apnea admit. IMPRESSION: 1. Seizure/syncope, etiology is not clear. Low pulse reading post seizure is noted. Neurology follows. 2. Conduction disease with baseline right bundle branch block and prolonged first degree AV block. Short period of Mobitz type 1 AV block is seen. 3. Ongoing abdominal infection, poor healing from attempted laparoscopic band surgery. 4. History of coronary artery disease, currently stable, prior stent placement. A. Borderline troponin changes had on presentation. 5. Uremia, might have elevated potassium levels on presentation due to hemodialysis noncompliance. PLAN: The Cause of his syncope/seizure episode is at this point is not entirely clear. Bradycardia is a possibility, but has not recurred ever since. Although he does have a baseline conduction disease with a right bundle branch block and markedly prolonged first degree AV block on occasion Mobitz type 1 second degree AV block, this is transient and associated with sleep. We discussed the role of pacing in his condition. Hence the ongoing abdominal infection, I think pacing implantation is a difficult proposition at this time. Consideration for pacing could be made once the abdominal wound resolved if further symptomatic bradyarrhythmias are seen after normalizing his electrolytes. For now would not think he is a good candidate fro pacing. We will follow up with you. Thank you for allowing us to participate in the care of this patient. LEFTY
--- NOTE | 2018-01-16 09:41 | PRG ---
DATE OF SERVICE: 01/16/2018 SUBJECTIVE: Mr. Linares is a 67-year-old male with ESRD and currently being followed up for h is maintenance hemodialysis. I am currently at the dialysis supervising his treatment. He is tolera ting said treatment. He has also been seen by Dr. Reyes, Cardiology for the marked prolonged first de gree AV block at baseline. The plan is essentially to continue to observe him. Discussion for a pacemaker was done. However, w ith his ongoing abdominal infection, this is currently on hold. We have discontinued the Coreg and clonidine with this patient. No other complaints today. PHYSICAL EXAMINATION: VITAL SIGNS: Blood pressure is 151/68, heart rate 68, respiratory rate 19, temperature 98.6, pulse o x 93%. GENERAL: Awake, alert, comfortable, not in distress. SKIN: Adequate turgor. HEENT: Pinkish conjunctivae. Anicteric sclerae. NECK: No neck mass, no carotid bruits, no JVD. CHEST: No deformities. LUNGS: Clear breath sounds. HEART: Normal sinus rhythm. No murmur, no gallops or rubs. ABDOMEN: Globular, soft. Positive for surgical scar. EXTREMITIES: No edema, no deformities. MEDICATIONS: 01/16/2018 - Reviewed. LABORATORY: 01/16/2018 - White count 6.7, hemoglobin 8.9. Sodium 133, potassium 4.1, chloride 95, c arbon dioxide 29, BUN 96, creatinine 6.74, glucose 134. ASSESSMENT AND PLAN: 1. End-stage renal disease, stable. Continue current hemodialysis regimen. Fluid removal as tolera theresa. 2. Bradycardia - off of clonidine and Coreg. Cardiology is following. Eventual pacemaker placement ? 3. Surgical wound - currently on wound VAC. 4. Anemia. We are maintaining him on his weekly Epogen.
--- NOTE | 2018-01-16 14:04 | PDOC.CTH ---
Cardiology Progress Note - Subjective No overnight events. Tele reviewed and stable. - Objective Vital Signs Temp Pulse Resp BP Pulse Ox 01/16/18 08:00 98.8 F 63 18 170/72 H 92 L 01/16/18 07:45 93 L 01/16/18 04:00 98.6 F 68 19 151/68 H 93 L Admit Weight 284 lb 14.4 oz Weight 270 lb 01/15/18 01/16/18 01/17/18 06:59 06:59 06:59 Intake Total 2260 Output Total 450 4500 Balance 1810 -4500 - Physical Examination General/Neuro: alert & oriented x3 Lungs: CTA Heart: RRR - Telemetry Telemetry Rhythm: SR/SB - Labs Result Diagrams: 01/16/18 04:49 01/16/18 04:49 Troponin/CKMB CK-MB (CK-2) 2.0 ng/mL (0-6.6) 01/12/18 05:57 Troponin I 0.041 ng/mL (< 0.028) H 01/12/18 13:22 - Assessment/Plan 1. Syncope and questionable seizure 2. High Degree AVB 3. Bradycardia with intermittent 2nd Degree AVB 4. ESRD 5. CAD 6. Cellulitis Rhythm currently stable. Still no clear etiology for syncopal episode in ER. Told related to bradycardia, but no corresponding tele. Avoid pacer at this time with concurrent infection. Needs 30 day EVR at discharge.
[2018-01-16] MEDS: Lanthanum Carbonate 500 mg Tablet PO SCH ×5 (14:31→17:30)
[2018-01-16] MEDS: Sevelamer Carbonate 800 MG TAB PO SCH ×3 (14:32→17:30)
[2018-01-16] MEDS: Cinacalcet HCl 30 MG TAB PO SCH (14:33)
[2018-01-16] MEDS: Fluticasone Propionate Nasal Spray 16 gm Bottle NASAL SCH ×2 (14:34→21:52)
[2018-01-16] MEDS: Acetaminophen 325 MG TAB PO PRN ×2 (14:56→21:56)
[2018-01-16] MEDS: Insulin Regular 300 UNITS/3 ML VIAL SC PRN (19:27)
[2018-01-16] MEDS: Aspirin 81 mg Enteric Coated Tablet PO SCH (21:52)
[2018-01-16] MEDS: Pravastatin Sodium 20 MG TAB PO SCH (21:52)
[2018-01-16] MEDS: Fish Oil 1,000 MG CAP PO SCH (21:52)
[2018-01-16] MEDS: Clopidogrel Bisulfate 75 MG TAB PO SCH (21:52)
[2018-01-16] MEDS: Vit A,C & E/Lutein/Minerals Tablet PO SCH (21:53)
[2018-01-16] MEDS: Ubidecarenone 50 MG CAP PO SCH (21:53)
[2018-01-16] MEDS: CALCIUM GLUCONATE IV SCH (21:58)
[2018-01-16] MEDS: POTASSIUM CHLORIDE IV SCH (21:58)
[2018-01-16] MEDS: SODIUM CHLORIDE IV SCH (21:58)
[2018-01-16] MEDS: [UNRECOGNIZED DRUG - OTHER] IV SCH (21:58)
[2018-01-17] MEDS: POTASSIUM CHLORIDE IV SCH ×2 (01:59→22:17)
[2018-01-17] MEDS: [UNRECOGNIZED DRUG - OTHER] IV SCH (01:59)
[2018-01-17] MEDS: SODIUM CHLORIDE IV SCH ×2 (01:59→22:17)
[2018-01-17] MEDS: CALCIUM GLUCONATE IV SCH ×2 (01:59→22:17)
[2018-01-17 06:28] LABS: #Eosinphils 0.2 thou/uL (0.0-0.7); #Lymphocytes 1.3 thou/uL (1.20-3.40); #Monocytes 0.9 thou/uL (0.11-0.59); #Neutrophils 5.5 thou/uL (1.40-6.50); %Basophils 0.5 % (0.0-1.0); %Lymphocytes 15.9 % (21.0-51.0); %Monocytes 11.8 % (0.0-10.0); %Neutrophils 68.8 % (42.0-75.0); Hemoglobin 9.2 g/dL (14.0-18.0); Mean Corpuscular HGB CONC 30.9 g/dL (32.0-36.0); Mean Platelet Volume 7.4 fL (7.4-10.4); Platelet Count 262 thou/uL (130-400); RBC Distribution Width 13.8 % (11.5-14.5); Red Blood Cell (RBC) Count 2.97 mill/uL (4.70-6.10)
--- NOTE | 2018-01-17 06:50 | PDOC.FM ---
- Subjective Subjective: Patient reports that he is feeling well. They replaced the wound vac, but he reports that it is still leaking. He states that he has been up walking to the bathroom a few times a day. He denies any F/C, N/V, abdominal pain, palpitations , chest pain. - Objective MAR Reviewed: Yes Vital Signs & Weight: Vital Signs (12 hours) Temp Pulse Resp BP BP Pulse Ox 01/17/18 04:00 99.1 F 62 16 137/59 L 93 L 01/16/18 20:35 99 01/16/18 20:30 99.8 F H 70 17 149/68 H 99 Weight Admit Weight 129.228 kg Weight 120.066 kg I&O: 01/15/18 01/16/18 01/17/18 06:59 06:59 06:59 Intake Total 2260 2581 Output Total 450 5100 Balance 1810 -2519 Result Diagrams: 01/17/18 05:36 01/16/18 04:49 <Lydia Epstein - Last Filed: 01/17/18 06:48> - Objective Vital Signs & Weight: Vital Signs (12 hours) Temp Pulse Resp BP BP Pulse Ox 01/17/18 08:15 98.8 F 65 16 143/62 H 95 01/17/18 04:00 99.1 F 62 16 137/59 L 93 L Weight Admit Weight 129.228 kg Weight 120.066 kg I&O: 01/16/18 01/17/18 01/18/18 06:59 06:59 06:59 Intake Total 2260 2581 Output Total 450 5100 Balance 1810 -2519 Result Diagrams: 01/17/18 05:36 01/17/18 05:36 <Junior Pierre - Last Filed: 01/17/18 10:02> Phys Exam - Physical Examination Constitutional: NAD HEENT: moist MMs, sclera anicteric Respiratory: no wheezing, no rales, no rhonchi, clear to auscultation bilateral Cardiovascular: RRR, no significant murmur, no rub Gastrointestinal: soft, non-tender, no distention, positive bowel sounds wound vac in place over abd incisional wound with enteric fluid leaking Musculoskeletal: no edema, pulses present Neurological: non-focal, moves all 4 limbs Psychiatric: normal affect, A&O x 3 <TeteLydia - Last Filed: 01/17/18 06:48> Dx/Plan (1) Seizure Code(s): R56.9 - UNSPECIFIED CONVULSIONS Status: Acute (2) Bradycardia Code(s): R00.1 - BRADYCARDIA, UNSPECIFIED Status: Acute (3) Fluid overload Code(s): E87.70 - FLUID OVERLOAD, UNSPECIFIED Status: Acute Qualifiers: Hypervolemia type: other Qualified Code(s): E87.79 - Other fluid overload (4) Hyperkalemia Code(s): E87.5 - HYPERKALEMIA Status: Acute (5) ESRD (end stage renal disease) on dialysis Code(s): N18.6 - END STAGE RENAL DISEASE; Z99.2 - DEPENDENCE ON RENAL DIALYSIS Status: Acute (6) DM2 (diabetes mellitus, type 2) Status: Acute Qualifiers: Diabetes mellitus alf insulin use: without alf use Diabetes mellitus complication status: with circulatory complication Diabetes mellitus complication detail: with other circulatory complications Qualified Code(s): E11.59 - Type 2 diabetes mellitus with other circulatory complications (7) CAD (coronary artery disease) Code(s): I25.10 - ATHSCL HEART DISEASE OF [place] CORONARY ARTERY W/O ANG PCTRS Status: Acute Qualifiers: Coronary Disease-Associated Artery/Lesion type: [place] artery [place] vs. transplanted heart: [place] heart Associated angina: without angina Qualified Code(s): I25.10 - Atherosclerotic heart disease of [place] coronary artery without angina pectoris (8) Anemia Code(s): D64.9 - ANEMIA, UNSPECIFIED Status: Acute Qualifiers: Anemia type: due to chronic kidney disease Chronic kidney disease stage: on chronic dialysis Qualified Code(s): N18.6 - End stage renal disease; D63.1 - Anemia in chronic kidney disease; Z99.2 - Dependence on renal dialysis (9) Lactic acid increased Code(s): E87.2 - ACIDOSIS Status: Resolved (10) Troponin level elevated Code(s): R74.8 - ABNORMAL LEVELS OF OTHER SERUM ENZYMES Status: Acute (11) Postoperative wound infection Code(s): T81.49XA - INFECTION FOLLOWING A PROCEDURE, OTHER SURGICAL SITE, INIT Status: Acute (12) Former tobacco use Code(s): Z87.891 - PERSONAL HISTORY OF NICOTINE DEPENDENCE Status: Acute (13) Enterocutaneous fistula Code(s): K63.2 - FISTULA OF INTESTINE Status: Acute - Plan Plan: Enterocutaneous 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 -NPO with TPN -Wound care consulted for wound vac -Pt will likely need long-term IV placement in place of the central line, will defer to surgery and nephro for decision on this due to him being HD pt. -General surgery on board, appreciate recs Seizure, new onset Patient had witnessed tonic-clonic seizure in the ED that lasted 2 minutes. Was initiated on keppra, but neuro recommended d/c'ing that. EEG showed no seizure-like activity -Consulted Neuro, appreciate recs -Seizure precautions Severe Bradycardia, resolved pt had episode of bradycardia to the 20's after the seizure. No further episodes since then. s/p 1mg atropine. EKG prior to this episode showed rate 75 with RBBB. Trops WNL Pt had h/o CAD s/p 1 stent Echo showed EF 45-50% -Consulted Dr. Liang with cardiology, appreciate recs. Plan for holter monitor outpatient -Monitor on tele -Hold all BB Heart Block, resolved Pt had an episode of heart block yesterday afternoon that has resolved. He is currently in NSR. -Dr. Liang recommended continued monitoring -EP recommended consideration of pacemaker placement after pt's wound heals -Plan for event recorder once pt d/c Fluid Overload, resolved Pt appeared fluid overloaded on CXR and has edema of BLE. This is likely 2/2 missed dialysis on Friday. Echo showed EF 45-50% -Consulted Dr. Madden with nephrology, appreciate recs. Plan for dialysis MWF -Consulted Dr. Liang with Cardiology Post-Op Wound Infection Pt with wound infection of inferior aspect of laparotomy wound with some purulent drainage. -Dr. Bonilla with general surgery consulted, appreciate recs -Blood cultures NGTD -Wound care consulted for wound vac. Wound vac currently in place. Hyperkalemia, resolved K 5.5 initially with no peaked T waves. Pt s/p 1 amp calcium gluconate in ED. Resolved with dialysis -s/p dialysis -Monitor Elevated Troponin Initial trop 0.045. This could be 2/2 decreased clearance with ESRD. Concern with episode of bradycardia to the 20's. Per pt had recent cath in September that was "normal". Repeat trop trended down -Repeat trop and EKG if pt develops chest pain -Consulted Dr. Liang with cardiology, appreciate recs Elevated BNP Pt BNP was 2214.5. No hx in [employer] of prior BNP or echo. Per pt has had echo' s with Dr. Liang. Echo showed EF 45-50% -Consulted Dr. Liang with cardiology, appreciate recs ESRD on HD Pt gets dialysis MWF and had recent revision of LUE fistula -Dr. Madden with nephrology has been consulted, appreciate recs -Plan for Dialysis MWF -Renal diet Anemia of CKD Pt Hb stable -Procrit weekly -Monitor DM2 Pt denies needing any medication for a few years. -Accuchecks ACHS -Mild SSI CAD s/p 1 stent Pt reports recent cath that was ok. s/p 1 stent several years ago -Aspirin -Plavix H/O tobacco abuse Pt is a former smoker with remote hx. -Encouraged continued cessation Dispo: CM on board for assistance with placement at a facility where he can receive wound care and TPN. <Lydia Epstein - Last Filed: 01/17/18 06:48> Attending Addendum - Attending Addendum Date/Time: 01/17/18 1000 I personally evaluated the patient and discussed the management with Dr. Epstein. I agree with the History, Examination, Assessment and Plan documented above with any addition or exceptions noted below. Patient doing well. Continues on TPN and wound vac/wound care. Patient not bradycardic at this time. Continue to work on placement. <Junior Pierre - Last Filed: 01/17/18 10:02>
[2018-01-17 07:12] LABS: ALT (SGPT) Less than 7 U/L (8-55); AST (SGOT) 12 U/L (5-34); Albumin 3.2 g/dL (3.4-4.8); Alkaline Phosphatase 51 U/L (40-150); Anion Gap 11 mmol/L (10-20); BUN (Urea Nitrogen) 21 mg/dL (8.4-25.7); Bilirubin, Total 0.4 mg/dL (0.2-1.2); Calc. Creatinine Clearance 25 mL/min (70-130); Calcium 9.1 mg/dL (7.8-10.44); Carbon Dioxide 30 mmol/L (23-31); Chloride 96 mmol/L (98-107); Estimated GFR-MDRD 11; Globulin 4.6 g/dL (2.4-3.5); Glucose 126 mg/dL (80-115); Magnesium 1.9 mg/dL (1.6-2.6); Phosphorus 2.2 mg/dL (2.3-4.7); Potassium 4.1 mmol/L (3.5-5.1); Protein, Total 7.8 g/dL (5.8-8.1); Sodium 133 mmol/L (136-145)
[2018-01-17 07:15] LABS: Cardiac Risk 2.4 (Less than 4.5)
[2018-01-17] MEDS: Fluticasone Propionate Nasal Spray 16 gm Bottle NASAL SCH ×2 (08:09→20:48)
[2018-01-17] MEDS: Sevelamer Carbonate 800 MG TAB PO SCH ×3 (08:09→16:33)
[2018-01-17] MEDS: Lanthanum Carbonate 500 mg Tablet PO SCH ×3 (08:09→16:01)
--- NOTE | 2018-01-17 08:43 | PRG ---
DATE OF SERVICE: 01/17/2018 SUBJECTIVE: Mr. Linares is a 67-year-old male with known history of ESRD and being followed u p for his maintenance hemodialysis. He underwent dialysis yesterday without any problem. He voices no new complaints. He also is on TPN. He has a surgical wound infection, currently on a wound VAC. He was seen by Cardiology due to a near syncopal episode. No plans for placement of any pacemaker d ue to the active infection. OBJECTIVE: VITAL SIGNS: Blood pressure 137/59, heart rate 62, respiratory rate 16, temperature 99.1, pulse ox 9 3%. GENERAL EXAM: Awake, alert, comfortable, not in distress SKIN: Adequate turgor. HEENT: Pinkish conjunctivae, anicteric sclerae. NECK: No neck mass, no carotid bruits, no JVD. CHEST: No deformities. LUNGS: Clear breath sounds. No wheezing, no crackles. HEART: Normal sinus rhythm. No murmur, no gallops, no rubs. ABDOMEN: Globular, soft, nontender, no masses. EXTREMITIES: No edema, no deformities. Medications of 01/17/2018 reviewed. LABORATORY DATA: Laboratories of 01/17/2018, white count 8, hemoglobin 9.2. Sodium 133, potassium 4 .1, chloride 96, carbon dioxide 30, BUN 21, creatinine 5.1, glucose 126, AST is 12, ALT less than 7, albumin 3.2. ASSESSMENT AND PLAN: 1. Abdominal wound infection - currently on wound VAC and followed by Surgery. 2. End-stage renal disease, stable. No indication for any emergent hemodialysis. Continue supporti ve care. Continue Friday, Friday, Friday dialysis. 3. Anemia, continuing weekly Epogen.
[2018-01-17] MEDS ORDERED: Heparin 10,000 UNITS/ 10 ML VIAL ONE (08:46)
[2018-01-17] MEDS: Cinacalcet HCl 30 MG TAB PO SCH (11:14)
--- NOTE | 2018-01-17 12:14 | EKG ---
Test Reason : ESEQUIEL Blood Pressure : / mmHG Vent. Rate : 075 BPM Atrial Rate : 076 BPM P-R Int : 000 ms QRS Dur : 178 ms QT Int : 454 ms P-R-T Axes : 000 095 038 degrees QTc Int : 506 ms Wide QRS rhythm Right bundle branch block Abnormal ECG Confirmed by MEMO GOSS ([id number]), news video editor BRITTANY GANDHI ([id number]) on 01/17/2018 12:14:30 PM Referred By: NEL Confirmed By:MEMO GOSS
--- NOTE | 2018-01-17 17:01 | PRG ---
DATE OF SERVICE: 01/17/2018 SUBJECTIVE: Stefna Linares is doing well today. Since the VAC was placed yesterday, he has had one c atheter change which reflects about 500 mL of enteric drainage from his enterocutaneous fistula. He has had problems with vacuum, maintaining the seal. Dr. Madden is following him for his hemodialysis. He is on TPN and n.p.o. otherwise. Outputs have not been recorded by Nursing. OBJECTIVE: 98.4, 66, 135/56. Exam unremarkable. The patient is having bowel movements. ASSESSMENT AND PLAN: Enterocutaneous fistula. Continue TPN, wound VAC. Depending on volume output, consider starting [place] dostatin. We will try to gain a better assessment after nurses record outputs.
[2018-01-17] MEDS: Clopidogrel Bisulfate 75 MG TAB PO SCH (20:49)
[2018-01-17] MEDS: Fish Oil 1,000 MG CAP PO SCH (20:49)
[2018-01-17] MEDS: Pravastatin Sodium 20 MG TAB PO SCH (20:49)
[2018-01-17] MEDS: Ubidecarenone 50 MG CAP PO SCH (20:49)
[2018-01-17] MEDS: Aspirin 81 mg Enteric Coated Tablet PO SCH (20:50)
[2018-01-17] MEDS: Vit A,C & E/Lutein/Minerals Tablet PO SCH (21:00)
[2018-01-17] MEDS: [UNRECOGNIZED DRUG - OTHER] IV SCH (22:17)
[2018-01-18 05:55] LABS: #Eosinphils 0.4 thou/uL (0.0-0.7); #Lymphocytes 1.4 thou/uL (1.20-3.40); #Monocytes 0.8 thou/uL (0.11-0.59); #Neutrophils 4.9 thou/uL (1.40-6.50); %Basophils 0.4 % (0.0-1.0); %Eosinophils 5.1 % (0.0-10.0); %Lymphocytes 18.8 % (21.0-51.0); %Monocytes 11.1 % (0.0-10.0); %Neutrophils 64.6 % (42.0-75.0); Hemoglobin 9.4 g/dL (14.0-18.0); Mean Corpuscular Hemoglobin 31.9 pg (27.0-31.0); Mean Corpuscular Volume 99.8 fL (78.0-98.0); Mean Platelet Volume 7.6 fL (7.4-10.4); Platelet Count 272 thou/uL (130-400); RBC Distribution Width 13.9 % (11.5-14.5); Red Blood Cell (RBC) Count 2.96 mill/uL (4.70-6.10); White Blood Cell (WBC) Count 7.6 thou/uL (4.8-10.8)
[2018-01-18 06:08] LABS: ALT (SGPT) Less than 7 U/L (8-55); AST (SGOT) 14 U/L (5-34); Albumin 3.1 g/dL (3.4-4.8); Alkaline Phosphatase 48 U/L (40-150); Anion Gap 14 mmol/L (10-20); BUN (Urea Nitrogen) 36 mg/dL (8.4-25.7); Bilirubin, Total 0.4 mg/dL (0.2-1.2); Calc. Creatinine Clearance 20 mL/min (70-130); Calcium 9.1 mg/dL (7.8-10.44); Carbon Dioxide 26 mmol/L (23-31); Chloride 95 mmol/L (98-107); Estimated GFR-MDRD 9; Globulin 4.7 g/dL (2.4-3.5); Glucose 158 mg/dL (80-115); Magnesium 2.1 mg/dL (1.6-2.6); Potassium 3.8 mmol/L (3.5-5.1); Protein, Total 7.8 g/dL (5.8-8.1); Sodium 131 mmol/L (136-145)
--- NOTE | 2018-01-18 06:31 | PDOC.FM ---
- Subjective Subjective: Patient reports that his wound vac is leaking again. He denies any SOB, chest pain, diarrhea, abdominal pain. He reports an episode with nausea and vomiting yesterday. He states that it has resolved. - Objective MAR Reviewed: Yes Vital Signs & Weight: Vital Signs (12 hours) Temp Pulse Resp BP Pulse Ox 01/18/18 04:00 97.8 F 65 16 138/64 97 01/17/18 20:15 99 01/17/18 20:00 98.9 F 69 18 136/65 98 Weight Admit Weight 129.228 kg Weight 120.066 kg I&O: 01/16/18 01/17/18 01/18/18 06:59 06:59 06:59 Intake Total 2260 2581 1080 Output Total 450 5100 125 Balance 1810 -2519 955 Result Diagrams: 01/18/18 04:50 01/18/18 04:50 <Lydia Epstein - Last Filed: 01/18/18 06:28> - Objective Vital Signs & Weight: Vital Signs (12 hours) Temp Pulse Resp BP Pulse Ox 01/18/18 07:30 99 F 64 16 147/67 H 94 L 01/18/18 04:00 97.8 F 65 16 138/64 97 Weight Admit Weight 129.228 kg Weight 120.656 kg I&O: 01/17/18 01/18/18 01/19/18 06:59 06:59 06:59 Intake Total 2581 1560 Output Total 5100 575 Balance -2519 985 Result Diagrams: 01/18/18 04:50 01/18/18 04:50 <Junior Pierre - Last Filed: 01/18/18 09:50> Phys Exam - Physical Examination Constitutional: NAD HEENT: moist MMs, sclera anicteric Respiratory: no wheezing, no rales, no rhonchi, clear to auscultation bilateral Cardiovascular: RRR, no significant murmur, no rub Gastrointestinal: soft, non-tender, no distention, positive bowel sounds Musculoskeletal: no edema, pulses present Psychiatric: normal affect, A&O x 3 Deviation from normal: wound vac in place over incisional wound/enterocutaneous fistula <Lydia Epstein - Last Filed: 01/18/18 06:28> Dx/Plan (1) Seizure Code(s): R56.9 - UNSPECIFIED CONVULSIONS Status: Acute (2) Bradycardia Code(s): R00.1 - BRADYCARDIA, UNSPECIFIED Status: Acute (3) Fluid overload Code(s): E87.70 - FLUID OVERLOAD, UNSPECIFIED Status: Acute Qualifiers: Hypervolemia type: other Qualified Code(s): E87.79 - Other fluid overload (4) Hyperkalemia Code(s): E87.5 - HYPERKALEMIA Status: Acute (5) ESRD (end stage renal disease) on dialysis Code(s): N18.6 - END STAGE RENAL DISEASE; Z99.2 - DEPENDENCE ON RENAL DIALYSIS Status: Acute (6) DM2 (diabetes mellitus, type 2) Status: Acute Qualifiers: Diabetes mellitus continuous churn buttermaker insulin use: without fci use Diabetes mellitus complication status: with circulatory complication Diabetes mellitus complication detail: with other circulatory complications Qualified Code(s): E11.59 - Type 2 diabetes mellitus with other circulatory complications (7) CAD (coronary artery disease) Code(s): I25.10 - ATHSCL HEART DISEASE OF [place] CORONARY ARTERY W/O ANG PCTRS Status: Acute Qualifiers: Coronary Disease-Associated Artery/Lesion type: [place] artery [place] vs. transplanted heart: [place] heart Associated angina: without angina Qualified Code(s): I25.10 - Atherosclerotic heart disease of [place] coronary artery without angina pectoris (8) Anemia Code(s): D64.9 - ANEMIA, UNSPECIFIED Status: Acute Qualifiers: Anemia type: due to chronic kidney disease Chronic kidney disease stage: on chronic dialysis Qualified Code(s): N18.6 - End stage renal disease; D63.1 - Anemia in chronic kidney disease; Z99.2 - Dependence on renal dialysis (9) Lactic acid increased Code(s): E87.2 - ACIDOSIS Status: Resolved (10) Troponin level elevated Code(s): R74.8 - ABNORMAL LEVELS OF OTHER SERUM ENZYMES Status: Acute (11) Postoperative wound infection Code(s): T81.49XA - INFECTION FOLLOWING A PROCEDURE, OTHER SURGICAL SITE, INIT Status: Acute (12) Former tobacco use Code(s): Z87.891 - PERSONAL HISTORY OF NICOTINE DEPENDENCE Status: Acute (13) Enterocutaneous fistula Code(s): K63.2 - FISTULA OF INTESTINE Status: Acute - Plan Plan: Enterocutaneous 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 -NPO with TPN -Wound care consulted for wound vac -Pt will likely need long-term IV placement in place of the central line, will defer to surgery and nephro for decision on this due to him being HD pt. -General surgery on board, appreciate recs Post-Op Wound Infection Pt with wound infection of inferior aspect of laparotomy wound with some purulent drainage. -Dr. Bonilla with general surgery consulted, appreciate recs -Blood cultures NGTD -Wound care consulted for wound vac. Wound vac currently in place. Seizure, new onset Patient had witnessed tonic-clonic seizure in the ED that lasted 2 minutes. Was initiated on keppra, but neuro recommended d/c'ing that. EEG showed no seizure-like activity -Consulted Neuro, appreciate recs -Seizure precautions Severe Bradycardia, resolved pt had episode of bradycardia to the 20's after the seizure. No further episodes since then. s/p 1mg atropine. EKG prior to this episode showed rate 75 with RBBB. Trops WNL Pt had h/o CAD s/p 1 stent Echo showed EF 45-50% -Consulted Dr. Liang with cardiology, appreciate recs. Plan for holter monitor outpatient -Monitor on tele -Hold all BB Heart Block, resolved Pt had an episode of heart block yesterday afternoon that has resolved. He is currently in NSR. -Dr. Liang recommended continued monitoring -EP recommended consideration of pacemaker placement after pt's wound heals -Plan for event recorder once pt d/c Fluid Overload, resolved Pt appeared fluid overloaded on CXR and has edema of BLE. This is likely 2/2 missed dialysis on Friday. Echo showed EF 45-50% -Consulted Dr. Madden with nephrology, appreciate recs. Plan for dialysis MWF -Consulted Dr. Liang with Cardiology Hyperkalemia, resolved K 5.5 initially with no peaked T waves. Pt s/p 1 amp calcium gluconate in ED. Resolved with dialysis -s/p dialysis -Monitor Elevated Troponin Initial trop 0.045. This could be 2/2 decreased clearance with ESRD. Concern with episode of bradycardia to the 20's. Per pt had recent cath in September that was "normal". Repeat trop trended down -Repeat trop and EKG if pt develops chest pain -Consulted Dr. Liang with cardiology, appreciate recs Elevated BNP Pt BNP was 2214.5. No hx in [facility] of prior BNP or echo. Per pt has had echo' s with Dr. Liang. Echo showed EF 45-50% -Consulted Dr. Liang with cardiology, appreciate recs ESRD on HD Pt gets dialysis MWF and had recent revision of LUE fistula -Dr. Madden with nephrology has been consulted, appreciate recs -Plan for Dialysis MWF -Renal diet Anemia of CKD Pt Hb stable -Procrit weekly -Monitor DM2 Pt denies needing any medication for a few years. -Accuchecks ACHS -Mild SSI CAD s/p 1 stent Pt reports recent cath that was ok. s/p 1 stent several years ago -Aspirin -Plavix H/O tobacco abuse Pt is a former smoker with remote hx. -Encouraged continued cessation Dispo: CM on board for assistance with placement at a facility where he can receive wound care and TPN. <Lydia Epstein - Last Filed: 01/18/18 06:28> Attending Addendum - Attending Addendum Date/Time: 01/18/18 0950 I personally evaluated the patient and discussed the management with Dr. Epstein. I agree with the History, Examination, Assessment and Plan documented above with any addition or exceptions noted below. Patient stable. Continue wound care and work on placement. Continues on TPN. HD as needed per nephro. Labs stable overall today. <Junior Pierre - Last Filed: 01/18/18 09:50>
[2018-01-18] MEDS: Sevelamer Carbonate 800 MG TAB PO SCH ×3 (09:11→16:20)
[2018-01-18] MEDS: Lanthanum Carbonate 500 mg Tablet PO SCH ×3 (09:11→16:20)
[2018-01-18] MEDS: Fluticasone Propionate Nasal Spray 16 gm Bottle NASAL SCH ×2 (10:21→21:16)
--- NOTE | 2018-01-18 11:12 | PRG ---
DATE OF SERVICE: 01/18/2018 SERVICE: Renal Medicine. SUBJECTIVE: Mr. Linares is a 67-year-old male with end-stage renal disease. He underwent exp loratory laparotomy 1 week ago. He has been evaluated by Surgery. He still placed on n.p.o. and don ofe on TPN. He has a leak around the wound VAC area. This was reinforced by the nursing staff. Our plan is to reconsult wound VAC people in a.m. No complaints of chest pain or shortness of breath. OBJECTIVE: VITAL SIGNS: Blood pressure 147/67, heart rate 64, respiratory rate 16, temperature 99, pulse ox 94% on room air. GENERAL: Awake, alert, comfortable, not in distress. SKIN: Adequate turgor. HEENT: Pinkish conjunctivae. Anicteric sclerae. NECK: No neck mass, no carotid bruits, no JVD. CHEST: No deformities. LUNGS: Clear breath sounds, no wheezing, no crackles. HEART: Normal sinus rhythm. No murmur, no gallops, no rubs. ABDOMEN: Globular, soft, nontender, no masses. EXTREMITIES: No edema, no deformities. Positive for wound VAC in the abdomen. MEDICATIONS: Of 01/18/2018 was reviewed. LABORATORY DATA: Of 01/18/2018 was reviewed. ASSESSMENT AND PLAN: 1. End-stage renal disease, stable. No indication for emergent hemodialysis. I have scheduled this patient for his hemodialysis tomorrow, Friday, Friday, and Friday. 2. Anemia. Continuing current Epogen regimen. 3. Abdominal wound on n.p.o. and currently on TPN. Surgery is following.
[2018-01-18] MEDS: Cinacalcet HCl 30 MG TAB PO SCH (11:56)
--- NOTE | 2018-01-18 20:30 | PRG ---
DATE OF SERVICE: 01/18/2018 SUBJECTIVE: Stefan Linares is doing well today. He was seen for Dr. Bonilla today, Friday. He does not have any complaints. Wound Care came in yesterday and worked on his wound VAC. It was noted payam t he did not have any skin protection from previous wound VAC placement. Wound VAC was replaced. He has done much better with some soilage requiring some nursing care, but overall has fared much aubrey r. OBJECTIVE: VITAL SIGNS: 98.5 degrees, 65, 162/67. ABDOMEN: Drainage from his wound VAC reveals that he had 1 canister change 500 mL and has about anot her 200 mL. He has had back then 700 mL drainage in the last 20 hours from his fistula. ASSESSMENT AND PLAN: Enterocutaneous fistula. Continue TPN, bowel rest. Probably we will need to a dd Sandostatin and Dr. Bonilla will order this tomorrow. He may need a change in his wound care from wound VAC to an ostomy if wound VAC cannot be managed to maintain a seal. The patient's mobility sh ould not be limited because of wound care.
[2018-01-18] MEDS: Vit A,C & E/Lutein/Minerals Tablet PO SCH (21:15)
[2018-01-18] MEDS: Ubidecarenone 50 MG CAP PO SCH (21:15)
[2018-01-18] MEDS: Clopidogrel Bisulfate 75 MG TAB PO SCH (21:15)
[2018-01-18] MEDS: Aspirin 81 mg Enteric Coated Tablet PO SCH (21:15)
[2018-01-18] MEDS: Pravastatin Sodium 20 MG TAB PO SCH (21:15)
[2018-01-18] MEDS: Fish Oil 1,000 MG CAP PO SCH (21:16)
[2018-01-18] MEDS: CALCIUM GLUCONATE IV SCH (22:30)
[2018-01-18] MEDS: [UNRECOGNIZED DRUG - OTHER] IV SCH (22:30)
[2018-01-18] MEDS: POTASSIUM CHLORIDE IV SCH (22:30)
[2018-01-18] MEDS: SODIUM CHLORIDE IV SCH (22:30)
[2018-01-19] MEDS: Acetaminophen 325 MG TAB PO PRN (00:33)
[2018-01-19 05:57] LABS: ALT (SGPT) 7 U/L (8-55); AST (SGOT) 17 U/L (5-34); Albumin 3.1 g/dL (3.4-4.8); Alkaline Phosphatase 53 U/L (40-150); Anion Gap 15 mmol/L (10-20); BUN (Urea Nitrogen) 51 mg/dL (8.4-25.7); Bilirubin, Total 0.4 mg/dL (0.2-1.2); Calc. Creatinine Clearance 16 mL/min (70-130); Calcium 9.4 mg/dL (7.8-10.44); Carbon Dioxide 25 mmol/L (23-31); Chloride 95 mmol/L (98-107); Estimated GFR-MDRD 7; Globulin 4.7 g/dL (2.4-3.5); Glucose 174 mg/dL (80-115); Magnesium 2.4 mg/dL (1.6-2.6); Potassium 4.5 mmol/L (3.5-5.1); Protein, Total 7.8 g/dL (5.8-8.1); Sodium 130 mmol/L (136-145)
[2018-01-19 06:25] LABS: Band 11 % (5-11); Eosinophils 5 % (0-10); Hemoglobin 9.5 g/dL (14.0-18.0); Lymphocytes 17 % (21-51); MDiff Complete? YES; Mean Corpuscular HGB CONC 30.8 g/dL (32.0-36.0); Mean Corpuscular Hemoglobin 30.5 pg (27.0-31.0); Mean Corpuscular Volume 99.1 fL (78.0-98.0); Mean Platelet Volume 7.5 fL (7.4-10.4); Monocytes 15 % (0-10); Neutrophil 52 % (42-75); Platelet Count 292 thou/uL (130-400); RBC Distribution Width 13.7 % (11.5-14.5); Red Blood Cell (RBC) Count 3.12 mill/uL (4.70-6.10); White Blood Cell (WBC) Count 7.1 thou/uL (4.8-10.8)
--- NOTE | 2018-01-19 08:04 | PRG ---
DATE OF SERVICE: 01/19/2018 SUBJECTIVE: Mr. Linares is a 67-year-old white male with ESRD, currently undergoing hemodialysis. I a m at the bedside supervising his dialysis. Recently had a surgical procedure. He is currently on n. p.o. and on TPN. He voices no new complaints. He denies any chest pain or shortness of breath. OBJECTIVE: VITAL SIGNS: Blood pressure 143/59, heart rate 59, respiratory rate 18, temperature 98.1, pulse ox i s 98%. GENERAL: Noted to be awake, alert, comfortable, not in distress. SKIN: Adequate turgor. HEENT: He has slightly pale conjunctivae, anicteric sclerae. NECK: No neck mass, no carotid bruits, no JVD. CHEST: No deformities. LUNGS: Decreased breath sounds. HEART: Normal sinus rhythm. No murmur, no gallops, no rubs. ABDOMEN: Globular, soft, nontender, no masses. Positive for a wound VAC. EXTREMITIES: No edema, no deformities. MEDICATIONS: 01/19/2018 - Reviewed. LABORATORY: 01/19/2018 - White count 7.1, hemoglobin 9.5. Sodium 130, potassium 4.5, chloride 95, c arbon dioxide 25, BUN 51, creatinine 7.69, glucose 174, phosphorus 2.0, magnesium 2.4, albumin is 3.1 . ASSESSMENT AND PLAN: 1. End-stage renal disease, stable. Continuing current hemodialysis regimen. Fluid removal only as tolerated. 2. Mild hypophosphatemia - currently, n.p.o. Continue to observe. 3. Anemia, continuing weekly Epogen. P.r.n. blood transfusion. We will recheck a base met and CBC in a.m.
--- NOTE | 2018-01-19 08:19 | PDOC.FM ---
- Subjective Subjective: Patient reports that his fistula has continued leaking. He reports that they changed it from a wound vac to a wet-to-dry dressing. He reports some vomiting last night, but denies any current nausea. He denies any F/C, SOB, CP. He does reports some irritation around his wound on his abdomen, but denies any abdominal pain. - Objective MAR Reviewed: Yes Vital Signs & Weight: Vital Signs (12 hours) Temp Pulse Resp BP Pulse Ox 01/19/18 04:00 98.1 F 59 L 18 143/59 H 98 Weight Admit Weight 129.228 kg Weight 119.295 kg I&O: 01/18/18 01/19/18 01/20/18 06:59 06:59 06:59 Intake Total 1560 630 Output Total 575 750 Balance 985 -120 Result Diagrams: 01/19/18 04:44 01/19/18 04:44 <Lydia Epstein - Last Filed: 01/19/18 08:17> - Objective Vital Signs & Weight: Vital Signs (12 hours) Temp Pulse Resp BP BP Pulse Ox 01/19/18 19:49 98.8 F 69 16 141/70 H 93 L 01/19/18 18:00 98.3 F 67 16 144/64 H 97 01/19/18 16:02 98.7 F 66 16 126/58 L 95 01/19/18 12:27 98.6 F 60 14 106/44 L 97 01/19/18 08:59 98 Weight Admit Weight 129.228 kg Weight 119.295 kg I&O: 01/18/18 01/19/18 01/20/18 06:59 06:59 06:59 Intake Total 1560 630 Output Total 654 892 5753 Balance 985 -120 -4500 Result Diagrams: 01/19/18 04:44 01/19/18 04:44 <Trena Avila - Last Filed: 01/19/18 20:46> Phys Exam - Physical Examination Constitutional: NAD HEENT: moist MMs, sclera anicteric Respiratory: no wheezing, no rales, no rhonchi, clear to auscultation bilateral Cardiovascular: RRR, no significant murmur, no rub Gastrointestinal: soft, non-tender, no distention, positive bowel sounds dressing in place over abdominal wound Musculoskeletal: no edema, pulses present Neurological: non-focal, moves all 4 limbs Psychiatric: normal affect, A&O x 3 <Lydia Epstein - Last Filed: 01/19/18 08:17> Dx/Plan (1) Enterocutaneous fistula Code(s): K63.2 - FISTULA OF INTESTINE Status: Acute (2) Postoperative wound infection Code(s): T81.49XA - INFECTION FOLLOWING A PROCEDURE, OTHER SURGICAL SITE, INIT Status: Acute (3) Seizure Code(s): R56.9 - UNSPECIFIED CONVULSIONS Status: Acute (4) Bradycardia Code(s): R00.1 - BRADYCARDIA, UNSPECIFIED Status: Acute (5) Fluid overload Code(s): E87.70 - FLUID OVERLOAD, UNSPECIFIED Status: Acute Qualifiers: Hypervolemia type: other Qualified Code(s): E87.79 - Other fluid overload (6) Hyperkalemia Code(s): E87.5 - HYPERKALEMIA Status: Acute (7) ESRD (end stage renal disease) on dialysis Code(s): N18.6 - END STAGE RENAL DISEASE; Z99.2 - DEPENDENCE ON RENAL DIALYSIS Status: Acute (8) DM2 (diabetes mellitus, type 2) Status: Acute Qualifiers: Diabetes mellitus care home insulin use: without senior executive compensation analyst use Diabetes mellitus complication status: with circulatory complication Diabetes mellitus complication detail: with other circulatory complications Qualified Code(s): E11.59 - Type 2 diabetes mellitus with other circulatory complications (9) CAD (coronary artery disease) Code(s): I25.10 - ATHSCL HEART DISEASE OF [place] CORONARY ARTERY W/O ANG PCTRS Status: Acute Qualifiers: Coronary Disease-Associated Artery/Lesion type: [place] artery [place] vs. transplanted heart: [place] heart Associated angina: without angina Qualified Code(s): I25.10 - Atherosclerotic heart disease of [place] coronary artery without angina pectoris (10) Anemia Code(s): D64.9 - ANEMIA, UNSPECIFIED Status: Acute Qualifiers: Anemia type: due to chronic kidney disease Chronic kidney disease stage: on chronic dialysis Qualified Code(s): N18.6 - End stage renal disease; D63.1 - Anemia in chronic kidney disease; Z99.2 - Dependence on renal dialysis (11) Lactic acid increased Code(s): E87.2 - ACIDOSIS Status: Resolved (12) Troponin level elevated Code(s): R74.8 - ABNORMAL LEVELS OF OTHER SERUM ENZYMES Status: Acute (13) Former tobacco use Code(s): Z87.891 - PERSONAL HISTORY OF NICOTINE DEPENDENCE Status: Acute - Plan Plan: Enterocutaneous 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 -NPO with TPN -Wound care consulted -Pt will likely need long-term IV placement in place of the central line, will defer to surgery and nephro for decision on this due to him being HD pt. -General surgery on board, appreciate recs Post-Op Wound Infection Likely 2/2 Enterocutaneous Fistula Pt with wound infection of inferior aspect of laparotomy wound with some purulent drainage. -Dr. Bonilla with general surgery consulted, appreciate recs -Blood cultures NGTD -Wound care consulted Seizure, new onset Patient had witnessed tonic-clonic seizure in the ED that lasted 2 minutes. Was initiated on keppra, but neuro recommended d/c'ing that. EEG showed no seizure-like activity -Consulted Neuro, appreciate recs -Seizure precautions Severe Bradycardia, resolved pt had episode of bradycardia to the 20's after the seizure. No further episodes since then. s/p 1mg atropine. EKG prior to this episode showed rate 75 with RBBB. Trops WNL Pt had h/o CAD s/p 1 stent Echo showed EF 45-50% -Consulted Dr. Liang with cardiology, appreciate recs. Plan for event recorder outpatient -Monitor on tele -Hold all BB Heart Block, resolved Pt had an episode of heart block yesterday afternoon that has resolved. He is currently in NSR. -Dr. Liang recommended continued monitoring -EP recommended consideration of pacemaker placement after pt's wound heals -Plan for event recorder once pt d/c Fluid Overload, resolved Pt appeared fluid overloaded on CXR and has edema of BLE. This is likely 2/2 missed dialysis on Friday. Echo showed EF 45-50% -Consulted Dr. Madden with nephrology, appreciate recs. Plan for dialysis MWF -Consulted Dr. Liang with Cardiology Elevated Troponin Initial trop 0.045. This could be 2/2 decreased clearance with ESRD. Concern with episode of bradycardia to the 20's. Per pt had recent cath in September that was "normal". Repeat trop trended down -Repeat trop and EKG if pt develops chest pain -Consulted Dr. Liang with cardiology, appreciate recs Elevated BNP Pt BNP was 2214.5. No hx in [facility] of prior BNP or echo. Per pt has had echo' s with Dr. Liang. Echo showed EF 45-50% -Consulted Dr. Liang with cardiology, appreciate recs ESRD on HD Pt gets dialysis MWF and had recent revision of LUE fistula -Dr. Madden with nephrology has been consulted, appreciate recs -Plan for Dialysis MWF -Renal diet Anemia of CKD Pt Hb stable -Procrit weekly -Monitor DM2 Pt denies needing any medication for a few years. -Accuchecks ACHS -Mild SSI CAD s/p 1 stent Pt reports recent cath that was ok. s/p 1 stent several years ago -Aspirin -Plavix H/O tobacco abuse Pt is a former smoker with remote hx. -Encouraged continued cessation Dispo: CM on board for assistance with placement at a facility where he can receive wound care and TPN. <Lydia Epstein - Last Filed: 01/19/18 08:17> Attending Addendum - Attending Addendum Date/Time: 01/19/182026 I personally evaluated the patient and discussed the management with Dr. Epstein I agree with the History, Examination, Assessment and Plan documented above with any addition or exceptions noted below. 67 yo female with multiple medical conditions admitted for missed HD and seizure -like activity now with post-op wound infection and EC fistula. HD#7 Patient seen in dialysis this morning. Reports he is doing well. No complications overnight. VS reviewed. Labs reviewed. Images reviewed. 1. s/p laprotomy on 12/30/17 now with postop complications. Attempted bariatric procedure but abandoned due to dense intrabdominal adhesions. 2. Wound infection s/p wound vac now wet to dry. Wound care following. 3. EC fistual: 750 mL output. Continue NPO status and TPN for nutrition. Gen surg following. Considering starting Sandostatin. Adjust labs based on intermittent labs. 4. ESRD on HD: Continue as scheduled. Nephro following. 5. Severe bradycardia with heart block: Improved. Will need event monitor at d/ c. Continue tele monitoring. Monitor electrolytes. Cards following. Remains normal rate but borderline. Avoid AV samson agents. EP following also. 6. Seizure like activity: Has been evaluated by neuro. EEG negative. Potentially related to hypoperfusion due to bradycardia vs uremia from missed dialysis. No return symptoms since admission. 7. HTN: Restart clonidine Monitor other co-morbid conditions. Thomas <Trena Avila - Last Filed: 01/19/18 20:46>
--- NOTE | 2018-01-19 08:50 | PDOC.CTH ---
Cardiology Progress Note - Subjective Doing well. NO complaints today - Objective Vital Signs Temp Pulse Resp BP Pulse Ox 01/19/18 04:00 98.1 F 59 L 18 143/59 H 98 Admit Weight 284 lb 14.4 oz Weight 263 lb 01/18/18 01/19/18 01/20/18 06:59 06:59 06:59 Intake Total 1560 630 Output Total 575 750 Balance 985 -120 - Physical Examination General/Neuro: alert & oriented x3, NAD Neck: carotid US brisk, no JVD present Lungs: CTA, unlabored respirations Heart: PMI normal, RRR Abdomen: no HSM, NT/ND, soft Extremities: + edema B - Telemetry Telemetry Rhythm: intermittent second degree Type I AVB - Labs Result Diagrams: 01/19/18 04:44 01/19/18 04:44 Troponin/CKMB CK-MB (CK-2) 2.0 ng/mL (0-6.6) 01/12/18 05:57 Troponin I 0.041 ng/mL (< 0.028) H 01/12/18 13:22 - Assessment/Plan Syncope/seizure mild to moderate CAD ESRD Continue to obsedrve Wound vac in place Abx At this point, no indication for pacer. Would be difficult if needed secondary to large wound present Continue to observe on tele Once he is ready for DC, recommend three week event recorder.
[2018-01-19] MEDS ORDERED: cloNIDine 0.1mg/24 Hour PATCH TD SCH (11:00)
--- NOTE | 2018-01-19 12:15 | PRG ---
DATE OF SERVICE: 01/19/2018 HISTORY OF PRESENT ILLNESS: Mr. Linares remains on the telemetry floor. He is hospital day #8 from al s admission for fluid overload, at which time he was found to have a wound infection. Postoperative day #20 from a laparotomy after a failed attempt at a laparoscopic bariatric surgery. 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 He did have a single enterotomy at the time of his surgery and this was repaired. He was recognized to have an enteric leak into his abdominal wound 4 days ago. Given the nature of his prior adhesions an d the length of time since his initial laparotomy, I felt at that time that exploration would be futi le and I instead recommended conservative management. A wound VAC was placed and this has been in pl [facility] over the weekend. Unfortunately, this appears to have been relatively high output and there have been repeat problems with leakage around the wound VAC and inappropriate wound VAC care and manageme nt. TPN was initiated several days ago, and he continues on this. He also continues to receive dial ysis. He tells me that he feels well and he has no pain. He is not moving around much, because of problems with the wound VAC and leakage. He denies any bowel movements, but notes that he is passing gas per rectum. PHYSICAL EXAMINATION: VITAL SIGNS: On examination, he is afebrile, pulse is 60, blood pressure 123/55. LUNGS: Clear to auscultation. ABDOMEN: Soft with normoactive bowel sounds. He has an occlusive dressing intact on his abdominal w ound at this time. The wound VAC was removed this morning and a gauze dressing was applied. This wi ll certainly be leaking at some point. LABORATORY DATA: White blood cell count remains normal at 7 with hemoglobin of 9.5. Chemistry profi le reveals minor electrolyte abnormalities. His albumin is still a little low at 3.1. His phosphoru s level is a little low at 2.0 as well. Sodium and chloride are both low. PLAN: In summary, although he is stable, he has ongoing problems regarding his enterocutaneous fistu la. I again reemphasized to the patient's the management of this will be a long-term propositio n. He will require ongoing TPN and wound care with hopes of this resolving spontaneously. I have sp oken to his admitting physicians, the Family Practice team, and requested that he be transferred from telemetry to a surgical floor where there is more comfort with managing open wounds. I have additio rosa isela spoken to the wound care team and emphasized the importance of having a system in place that wi ll not leak. In the absence of being able to do this with the wound VAC, may need to consider some f orm for an ostomy bag. I think that the negative pressure system would be superior if we can make it workout. I have also initiated octreotide and loperamide with hopes of decreasing the volume of his fistula output.
[2018-01-19] MEDS: Sevelamer Carbonate 800 MG TAB PO SCH ×3 (13:35→16:53)
[2018-01-19] MEDS: Lanthanum Carbonate 500 mg Tablet PO SCH ×3 (13:35→16:53)
[2018-01-19] MEDS: Fluticasone Propionate Nasal Spray 16 gm Bottle NASAL SCH ×2 (13:36→21:45)
[2018-01-19] MEDS: Cinacalcet HCl 30 MG TAB PO SCH (13:49)
[2018-01-19] MEDS: Loperamide HCl 2 MG CAP PO SCH ×4 (13:54→21:45)
[2018-01-19] MEDS: Octreotide Acetate 100 MCG/ML VIAL SC SCH ×2 (14:49→21:46)
[2018-01-19] MEDS: Epoetin (ESRD) 20,000 UNITS/ML SC SCH (14:49)
[2018-01-19] MEDS: Pravastatin Sodium 20 MG TAB PO SCH (21:44)
[2018-01-19] MEDS: Fish Oil 1,000 MG CAP PO SCH (21:44)
[2018-01-19] MEDS: Aspirin 81 mg Enteric Coated Tablet PO SCH (21:45)
[2018-01-19] MEDS: Vit A,C & E/Lutein/Minerals Tablet PO SCH (21:45)
[2018-01-19] MEDS: Ubidecarenone 50 MG CAP PO SCH (21:45)
[2018-01-19] MEDS: Clopidogrel Bisulfate 75 MG TAB PO SCH (21:45)
[2018-01-19] MEDS ORDERED: FAT EMULSION IV SCH (22:00)
[2018-01-19] MEDS ORDERED: [UNRECOGNIZED DRUG - OTHER] IV SCH (22:00)
[2018-01-19] MEDS ORDERED: SODIUM CHLORIDE IV SCH (22:00)
[2018-01-19] MEDS ORDERED: POTASSIUM PHOSPHATE IV SCH (22:00)
[2018-01-20] MEDS: Octreotide Acetate 100 MCG/ML VIAL SC SCH ×3 (05:45→22:20)
[2018-01-20] MEDS: Insulin Regular 300 UNITS/3 ML VIAL SC PRN ×2 (05:46→18:35)
[2018-01-20 05:47] LABS: #Basophils 0.1 thou/uL (0.0-0.2); #Eosinphils 0.3 thou/uL (0.0-0.7); #Lymphocytes 1.3 thou/uL (1.20-3.40); #Monocytes 1.1 thou/uL (0.11-0.59); #Neutrophils 4.4 thou/uL (1.40-6.50); %Basophils 0.9 % (0.0-1.0); %Eosinophils 4.6 % (0.0-10.0); %Lymphocytes 18.1 % (21.0-51.0); %Monocytes 14.9 % (0.0-10.0); %Neutrophils 61.5 % (42.0-75.0); Hemoglobin 9.4 g/dL (14.0-18.0); Mean Corpuscular HGB CONC 30.7 g/dL (32.0-36.0); Mean Corpuscular Hemoglobin 30.4 pg (27.0-31.0); Mean Platelet Volume 7.4 fL (7.4-10.4); Platelet Count 309 thou/uL (130-400); RBC Distribution Width 13.8 % (11.5-14.5); Red Blood Cell (RBC) Count 3.08 mill/uL (4.70-6.10); White Blood Cell (WBC) Count 7.2 thou/uL (4.8-10.8)
[2018-01-20 06:09] LABS: ALT (SGPT) 13 U/L (8-55); AST (SGOT) 24 U/L (5-34); Albumin 3.1 g/dL (3.4-4.8); Alkaline Phosphatase 54 U/L (40-150); Anion Gap 11 mmol/L (10-20); BUN (Urea Nitrogen) 32 mg/dL (8.4-25.7); Bilirubin, Total 0.4 mg/dL (0.2-1.2); Calc. Creatinine Clearance 24 mL/min (70-130); Carbon Dioxide 28 mmol/L (23-31); Chloride 98 mmol/L (98-107); Estimated GFR-MDRD 11; Globulin 4.7 g/dL (2.4-3.5); Glucose 167 mg/dL (80-115); Magnesium 2.2 mg/dL (1.6-2.6); Potassium 3.9 mmol/L (3.5-5.1); Protein, Total 7.8 g/dL (5.8-8.1); Sodium 133 mmol/L (136-145)
[2018-01-20 06:21] LABS: Phosphorus 1.7 mg/dL (2.3-4.7)
--- NOTE | 2018-01-20 08:18 | PDOC.FM ---
- Subjective Subjective: Patient reports that around 3 am they finally got his wound vac to work without leaking. He denies any abdominal pain, N/V. He reports that he had a BM overnight. He denies F/C, palpitations, CP. - Objective MAR Reviewed: Yes Vital Signs & Weight: Vital Signs (12 hours) Temp Pulse Resp BP Pulse Ox 01/20/18 08:02 133/54 L 01/20/18 07:07 97.5 F L 63 24 H 93/39 L 98 01/20/18 04:00 99.1 F 65 14 118/67 92 L 01/20/18 00:00 98.5 F 69 16 175/75 H 95 Weight Admit Weight 129.228 kg Weight 121.6 kg I&O: 01/19/18 01/20/18 01/21/18 06:59 06:59 06:59 Intake Total 630 1009 Output Total 750 4600 Balance -120 -3591 Result Diagrams: 01/20/18 05:40 01/20/18 05:40 <Lydia Epstein - Last Filed: 01/20/18 08:17> - Objective Vital Signs & Weight: Vital Signs (12 hours) Temp Pulse Resp BP Pulse Ox 01/25/18 15:25 98.1 F 60 18 148/74 H 100 01/25/18 12:00 98.6 F 64 12 92/53 L 97 Weight Admit Weight 129.228 kg Weight 123.831 kg I&O: 01/24/18 01/25/18 01/26/18 07:59 06:59 06:59 Intake Total 0 Output Total 200 Balance -200 Result Diagrams: 01/22/18 04:32 01/23/18 06:15 <Trena Avila - Last Filed: 01/25/18 19:57> Phys Exam - Physical Examination Constitutional: NAD HEENT: moist MMs, sclera anicteric Respiratory: no wheezing, no rales, no rhonchi, clear to auscultation bilateral Cardiovascular: RRR, no significant murmur, no rub Bruit and thrill over L AV fistula Gastrointestinal: soft, non-tender, no distention, positive bowel sounds Musculoskeletal: no edema, pulses present Neurological: non-focal, moves all 4 limbs Psychiatric: normal affect, A&O x 3 Deviation from normal: Wound vac in place over abdominal wound <Lydia Epstein - Last Filed: 01/20/18 08:17> Dx/Plan (1) Enterocutaneous fistula Code(s): K63.2 - FISTULA OF INTESTINE Status: Acute (2) Postoperative wound infection Code(s): T81.49XA - INFECTION FOLLOWING A PROCEDURE, OTHER SURGICAL SITE, INIT Status: Acute (3) Seizure Code(s): R56.9 - UNSPECIFIED CONVULSIONS Status: Resolved (4) Bradycardia Code(s): R00.1 - BRADYCARDIA, UNSPECIFIED Status: Resolved (5) Fluid overload Code(s): E87.70 - FLUID OVERLOAD, UNSPECIFIED Status: Resolved Qualifiers: Hypervolemia type: other Qualified Code(s): E87.79 - Other fluid overload (6) Hyperkalemia Code(s): E87.5 - HYPERKALEMIA Status: Resolved (7) ESRD (end stage renal disease) on dialysis Code(s): N18.6 - END STAGE RENAL DISEASE; Z99.2 - DEPENDENCE ON RENAL DIALYSIS Status: Chronic (8) DM2 (diabetes mellitus, type 2) Status: Chronic Qualifiers: Diabetes mellitus jail insulin use: without jail use Diabetes mellitus complication status: with circulatory complication Diabetes mellitus complication detail: with other circulatory complications Qualified Code(s): E11.59 - Type 2 diabetes mellitus with other circulatory complications (9) CAD (coronary artery disease) Code(s): I25.10 - ATHSCL HEART DISEASE OF [place] CORONARY ARTERY W/O ANG PCTRS Status: Chronic Qualifiers: Coronary Disease-Associated Artery/Lesion type: [place] artery [place] vs. transplanted heart: [place] heart Associated angina: without angina Qualified Code(s): I25.10 - Atherosclerotic heart disease of [place] coronary artery without angina pectoris (10) Anemia Code(s): D64.9 - ANEMIA, UNSPECIFIED Status: Chronic Qualifiers: Anemia type: due to chronic kidney disease Chronic kidney disease stage: on chronic dialysis Qualified Code(s): N18.6 - End stage renal disease; D63.1 - Anemia in chronic kidney disease; Z99.2 - Dependence on renal dialysis (11) Lactic acid increased Code(s): E87.2 - ACIDOSIS Status: Resolved (12) Troponin level elevated Code(s): R74.8 - ABNORMAL LEVELS OF OTHER SERUM ENZYMES Status: Resolved (13) Former tobacco use Code(s): Z87.891 - PERSONAL HISTORY OF NICOTINE DEPENDENCE Status: Acute - Plan Plan: Enterocutaneous 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 -NPO with TPN -Wound care consulted, wound vac in place -Pt will likely need long-term IV placement in place of the central line, will defer to surgery and nephro for decision on this due to him being HD pt. -General surgery on board, appreciate recs Post-Op Wound Infection Likely 2/2 Enterocutaneous Fistula Pt with wound infection of inferior aspect of laparotomy wound with some purulent drainage. -Dr. Bonilla with general surgery consulted, appreciate recs -Blood cultures NGTD -Wound care consulted Seizure-like activity, resolved Patient had witnessed tonic-clonic seizure in the ED that lasted 2 minutes. Was initiated on keppra, but neuro recommended d/c'ing that. EEG showed no seizure-like activity -Consulted Neuro, appreciate recs -Seizure precautions Severe Bradycardia, resolved pt had episode of bradycardia to the 20's after the seizure. No further episodes since then. s/p 1mg atropine. EKG prior to this episode showed rate 75 with RBBB. Trops WNL Pt had h/o CAD s/p 1 stent Echo showed EF 45-50% -Consulted Dr. Liang with cardiology, appreciate recs. Plan for event recorder outpatient -Monitor on tele -Hold all BB Heart Block, resolved Pt had an episode of heart block yesterday afternoon that has resolved. He is currently in NSR. -Dr. Liang recommended continued monitoring -EP recommended consideration of pacemaker placement after pt's wound heals -Plan for event recorder once pt d/c Fluid Overload, resolved Pt appeared fluid overloaded on CXR and has edema of BLE. This is likely 2/2 missed dialysis on Friday. Echo showed EF 45-50% -Consulted Dr. Madden with nephrology, appreciate recs. Plan for dialysis MWF -Consulted Dr. Liang with Cardiology Elevated BNP Pt BNP was 2214.5. No hx in [facility] of prior BNP or echo. Per pt has had echo' s with Dr. Liang. Echo showed EF 45-50% -Consulted Dr. Liang with cardiology, appreciate recs ESRD on HD Pt gets dialysis MWF and had recent revision of LUE fistula -Dr. Madden with nephrology has been consulted, appreciate recs -Plan for Dialysis MWF Anemia of CKD Pt Hb stable -Procrit weekly -Monitor DM2 Pt denies needing any medication for a few years. -Accuchecks ACHS -Mild SSI CAD s/p 1 stent Pt reports recent cath that was ok. s/p 1 stent several years ago -Aspirin -Plavix H/O tobacco abuse Pt is a former smoker with remote hx. -Encouraged continued cessation Dispo: CM on board for assistance with placement at a facility where he can receive wound care and TPN. <Lydia Epstein - Last Filed: 01/20/18 08:17> Attending Addendum - Attending Addendum Date/Time: 01/20/18 1050 I personally evaluated the patient and discussed the management with Dr. Epstein I agree with the History, Examination, Assessment and Plan documented above with any addition or exceptions noted below. 67 yo female with multiple medical conditions admitted for missed HD and seizure -like activity now with post-op wound infection and EC fistula. HD#8 States he continues to do well. No complaints. VS reviewed. 1. s/p laprotomy on 12/30/17 now with postop complications. Attempted bariatric procedure but abandoned due to dense intrabdominal adhesions. 2. EC fistual: Continue NPO status and TPN for nutrition. Gen surg following. On Sandostatin. Adjust TPN based on intermittent labs. 4. ESRD on HD: Continue HD as scheduled. Nephro following. 5. Severe bradycardia with heart block: Improved. Cards following. Remains normal rate but borderline. Avoid AV samson agents. EP following also. 6. Seizure like activity: Has been evaluated by neuro. EEG negative. Potentially related to hypoperfusion due to bradycardia vs uremia from missed dialysis. No return symptoms since admission. 7. HTN: Hold meds due to hypotension. PRN as needed for severe range. 8. DM: Monitor for severe hyperglycemia Monitor other co-morbid conditions. Thomas <Trena Avila - Last Filed: 01/25/18 19:57>
[2018-01-20] MEDS: Sevelamer Carbonate 800 MG TAB PO SCH ×4 (08:53→17:28)
[2018-01-20] MEDS: Loperamide HCl 2 MG CAP PO SCH ×4 (08:53→21:17)
[2018-01-20] MEDS: Lanthanum Carbonate 500 mg Tablet PO SCH ×4 (08:54→17:28)
[2018-01-20] MEDS: Fluticasone Propionate Nasal Spray 16 gm Bottle NASAL SCH ×2 (09:04→21:16)
--- NOTE | 2018-01-20 11:26 | PRG ---
DATE OF SERVICE: 01/20/2018 SUBJECTIVE: Mr. Linares is a 67-year-old man with ESRD, being followed by Renal Service for h is maintenance hemodialysis. He underwent dialysis without any problem. He is also being followed u p by Surgery secondary to a failed attempt at laparoscopic bariatric surgery. He has a single entero peter at that time, which was fixed. It was noted to have an enteric leak, and for that reason, the p atient is n.p.o. In addition, he has a wound VAC. Surgery has started octreotide to decrease the di scharge from the enterostomy. He is currently on TPN. He denies any new complaints. He denies any chest pain or shortness of breath. PHYSICAL EXAMINATION: VITAL SIGNS: Blood pressure is noted currently at 133/54, heart rate 63, respiratory rate 24, temper ature 97.5, pulse ox 98%. GENERAL EXAM: Awake, alert, comfortable, obese, sitting, not in distress. SKIN: Adequate turgor. HEENT: Slightly pale conjunctivae, anicteric sclerae. NECK: No neck mass, no carotid bruits, no JVD. CHEST: No deformities. LUNGS: Clear breath sounds. No wheezing, no crackles. HEART: Normal sinus rhythm. No murmur, no gallops, no rubs. ABDOMEN: Globular, soft, nontender. Positive for an abdominal surgical wound/positive for wound VAC . EXTREMITIES: No edema, no deformities. Medications of 01/20/2018 reviewed. LABORATORY DATA: Laboratories of 01/20/2018, white count 7.2, hemoglobin 9.4. Sodium 133, potassium 3.9, chloride 98, carbon dioxide 28, BUN 32, creatinine 5.18, phosphorus 1.7, magnesium 2.2, albumin 3.1. ASSESSMENT AND PLAN: 1. End-stage renal disease, stable. Tolerating current hemodialysis regimen. No indication for any emergent hemodialysis today. Continue Friday, Friday, Friday schedule. 2. Surgical abdominal wound/enteric fistula - currently on n.p.o., currently on TPN, followed by [facility]. 3. Mild hypophosphatemia - TPN being adjusted with phosphorus content. 4. Anemia, continuing weekly Epogen.
[2018-01-20] MEDS: Cinacalcet HCl 30 MG TAB PO SCH (12:29)
--- NOTE | 2018-01-20 17:37 | PRG ---
DATE OF SERVICE: 01/20/2018 SUBJECTIVE: Mr. Linares remains in the hospital. He has been transferred from the telemetry to the [facility] rg[facility] floor. He has an enterocutaneous fistula through his open abdominal wound that has been contr olled with a wound VAC. He has had no problems with wound VAC function today. He has had no leakage . He denies any pain. He tells me he had a bowel movement earlier today. He has walked in the coe way as well. PHYSICAL EXAMINATION: VITAL SIGNS: He is afebrile, pulse is 60, blood pressure 160/49. LUNGS: Clear to auscultation. ABDOMEN: Soft and nontender. Incisions are healing nicely. Wound VAC is intact. He has a right in ternal jugular central line in place. LABORATORY DATA: His CBC is stable with a white blood cell count of 7.2 and hemoglobin of 9.4. His chemistry profile has improved from yesterday. His sodium and chloride have gone up "essentially wit hin normal range." Phosphorus level is still low at 1.7 in spite of increase in his TPN. ASSESSMENT AND MIKA: Stable, but has enterocutaneous fistula into his wound. He will require ongoing wound care and TPN and dialysis. He will eventually require transfer to a facility with these servi samy can be provided. I will need to place a [place] catheter as he is not a PICC line candidate lefty use of dialysis. Additionally, patient is concerned regarding his left arm fistula. He tells me that he had an aneury sm repaired on this recently, but now has what he believes to be swelling around the recent repair si te. I will request Dr. Felder to evaluate this as he has already seen him over the past weekend.
[2018-01-20] MEDS ORDERED: cloNIDine 0.1 MG TAB PO SCH (21:00)
[2018-01-20] MEDS: Aspirin 81 mg Enteric Coated Tablet PO SCH (21:14)
[2018-01-20] MEDS: Fish Oil 1,000 MG CAP PO SCH (21:16)
[2018-01-20] MEDS: Clopidogrel Bisulfate 75 MG TAB PO SCH (21:16)
[2018-01-20] MEDS: Ubidecarenone 50 MG CAP PO SCH (21:17)
[2018-01-20] MEDS: Pravastatin Sodium 20 MG TAB PO SCH (21:17)
[2018-01-20] MEDS: Vit A,C & E/Lutein/Minerals Tablet PO SCH (21:18)
[2018-01-20] MEDS ORDERED: POTASSIUM PHOSPHATE IV SCH (22:00)
[2018-01-20] MEDS ORDERED: SODIUM CHLORIDE IV SCH (22:00)
[2018-01-20] MEDS ORDERED: [UNRECOGNIZED DRUG - OTHER] IV SCH (22:00)
[2018-01-20] MEDS ORDERED: FAT EMULSION IV SCH (22:00)
[2018-01-20] MEDS: POTASSIUM PHOSPHATE IV SCH (22:19)
[2018-01-20] MEDS: [UNRECOGNIZED DRUG - OTHER] IV SCH (22:19)
[2018-01-20] MEDS: FAT EMULSION IV SCH (22:19)
[2018-01-20] MEDS: SODIUM CHLORIDE IV SCH (22:19)
[2018-01-20] MEDS ORDERED: Activase 2 MG VIAL CATH SCH (22:44)
[2018-01-20] MEDS ORDERED: Sterile Water 10 ML VIAL IVP SCH (22:44)
[2018-01-21] MEDS: Insulin Regular 300 UNITS/3 ML VIAL SC PRN ×2 (00:34→06:04)
[2018-01-21 05:28] LABS: ALT (SGPT) 15 U/L (8-55); AST (SGOT) 23 U/L (5-34); Alkaline Phosphatase 55 U/L (40-150); Anion Gap 11 mmol/L (10-20); BUN (Urea Nitrogen) 56 mg/dL (8.4-25.7); Bilirubin, Total 0.3 mg/dL (0.2-1.2); Calc. Creatinine Clearance 19 mL/min (70-130); Calcium 8.8 mg/dL (7.8-10.44); Carbon Dioxide 26 mmol/L (23-31); Chloride 96 mmol/L (98-107); Estimated GFR-MDRD 9; Globulin 4.6 g/dL (2.4-3.5); Glucose 132 mg/dL (80-115); Magnesium 2.2 mg/dL (1.6-2.6); Phosphorus 2.1 mg/dL (2.3-4.7); Potassium 4.1 mmol/L (3.5-5.1); Protein, Total 7.6 g/dL (5.8-8.1); Sodium 129 mmol/L (136-145)
[2018-01-21 05:41] LABS: #Eosinphils 0.3 thou/uL (0.0-0.7); #Lymphocytes 1.2 thou/uL (1.20-3.40); #Monocytes 0.9 thou/uL (0.11-0.59); #Neutrophils 4.4 thou/uL (1.40-6.50); %Basophils 0.5 % (0.0-1.0); %Eosinophils 4.1 % (0.0-10.0); %Lymphocytes 17.5 % (21.0-51.0); %Monocytes 13.1 % (0.0-10.0); %Neutrophils 64.8 % (42.0-75.0); Hemoglobin 8.8 g/dL (14.0-18.0); Mean Corpuscular HGB CONC 30.8 g/dL (32.0-36.0); Mean Corpuscular Hemoglobin 30.3 pg (27.0-31.0); Mean Corpuscular Volume 98.5 fL (78.0-98.0); Mean Platelet Volume 7.8 fL (7.4-10.4); Platelet Count 282 thou/uL (130-400); RBC Distribution Width 13.8 % (11.5-14.5); White Blood Cell (WBC) Count 6.8 thou/uL (4.8-10.8)
[2018-01-21] MEDS: Octreotide Acetate 100 MCG/ML VIAL SC SCH ×3 (06:04→22:25)
--- NOTE | 2018-01-21 08:34 | PDOC.FM ---
- Subjective Subjective: Patient denies any complaints this AM, except that his wound vac has been leaking again. He denies any F/C, abdominal pain, N/V, lightheadedness, H/A. - Objective MAR Reviewed: Yes Vital Signs & Weight: Vital Signs (12 hours) Temp Pulse Resp BP BP Pulse Ox 01/21/18 07:58 98.7 F 57 L 18 91/48 L 96 01/21/18 03:53 98 F 58 L 18 90/49 L 93 L 01/21/18 00:00 98.4 F 60 16 120/65 97 01/20/18 23:02 94 L 01/20/18 21:15 117/63 Weight Admit Weight 129.228 kg Weight 124.239 kg I&O: 01/20/18 01/21/18 01/22/18 06:59 06:59 06:59 Intake Total 1009 2322 Output Total 4600 150 Balance -3591 2172 Result Diagrams: 01/21/18 04:43 01/21/18 04:43 <Lydia Epstein - Last Filed: 01/21/18 08:32> - Objective Vital Signs & Weight: Vital Signs (12 hours) Temp Pulse Resp BP Pulse Ox 01/25/18 15:25 98.1 F 60 18 148/74 H 100 01/25/18 12:00 98.6 F 64 12 92/53 L 97 Weight Admit Weight 129.228 kg Weight 123.831 kg I&O: 01/24/18 01/25/18 01/26/18 07:59 06:59 06:59 Intake Total 0 Output Total 200 Balance -200 Result Diagrams: 01/22/18 04:32 01/23/18 06:15 <Trena Avila - Last Filed: 01/25/18 20:00> Phys Exam - Physical Examination Constitutional: NAD HEENT: moist MMs, sclera anicteric Respiratory: no wheezing, no rales, no rhonchi, clear to auscultation bilateral Cardiovascular: RRR, no significant murmur, no rub L AV fistula with thrill and bruit Gastrointestinal: soft, non-tender, no distention, positive bowel sounds wound vac in place over incisional wound Musculoskeletal: no edema, pulses present Neurological: non-focal, moves all 4 limbs Psychiatric: normal affect, A&O x 3 Skin: normal turgor, cap refill <2 seconds Deviation from normal: Lower L AV fistula with some mild erythema and warmth on the overlying skin <Lydia Epstein - Last Filed: 01/21/18 08:32> Dx/Plan (1) Enterocutaneous fistula Code(s): K63.2 - FISTULA OF INTESTINE Status: Acute (2) Postoperative wound infection Code(s): T81.49XA - INFECTION FOLLOWING A PROCEDURE, OTHER SURGICAL SITE, INIT Status: Acute (3) Seizure Code(s): R56.9 - UNSPECIFIED CONVULSIONS Status: Resolved (4) Bradycardia Code(s): R00.1 - BRADYCARDIA, UNSPECIFIED Status: Resolved (5) Fluid overload Code(s): E87.70 - FLUID OVERLOAD, UNSPECIFIED Status: Resolved Qualifiers: Hypervolemia type: other Qualified Code(s): E87.79 - Other fluid overload (6) Hyperkalemia Code(s): E87.5 - HYPERKALEMIA Status: Resolved (7) ESRD (end stage renal disease) on dialysis Code(s): N18.6 - END STAGE RENAL DISEASE; Z99.2 - DEPENDENCE ON RENAL DIALYSIS Status: Chronic (8) DM2 (diabetes mellitus, type 2) Status: Chronic Qualifiers: Diabetes mellitus retirement insulin use: without retirement use Diabetes mellitus complication status: with circulatory complication Diabetes mellitus complication detail: with other circulatory complications Qualified Code(s): E11.59 - Type 2 diabetes mellitus with other circulatory complications (9) CAD (coronary artery disease) Code(s): I25.10 - ATHSCL HEART DISEASE OF [place] CORONARY ARTERY W/O ANG PCTRS Status: Chronic Qualifiers: Coronary Disease-Associated Artery/Lesion type: [place] artery [place] vs. transplanted heart: [place] heart Associated angina: without angina Qualified Code(s): I25.10 - Atherosclerotic heart disease of [place] coronary artery without angina pectoris (10) Anemia Code(s): D64.9 - ANEMIA, UNSPECIFIED Status: Chronic Qualifiers: Anemia type: due to chronic kidney disease Chronic kidney disease stage: on chronic dialysis Qualified Code(s): N18.6 - End stage renal disease; D63.1 - Anemia in chronic kidney disease; Z99.2 - Dependence on renal dialysis (11) Lactic acid increased Code(s): E87.2 - ACIDOSIS Status: Resolved (12) Troponin level elevated Code(s): R74.8 - ABNORMAL LEVELS OF OTHER SERUM ENZYMES Status: Resolved (13) Former tobacco use Code(s): Z87.891 - PERSONAL HISTORY OF NICOTINE DEPENDENCE Status: Acute - Plan Plan: Enterocutaneous 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 -NPO with TPN -Wound care consulted, wound vac in place -Pt will likely need long-term IV placement for TPN - Dr. Bonilla plans for a [facility] -General surgery on board, appreciate recs Post-Op Wound Infection Likely 2/2 Enterocutaneous Fistula Pt with wound infection of inferior aspect of laparotomy wound with some purulent drainage. -Dr. Bonilla with general surgery consulted, appreciate recs -Blood cultures NGTD -Wound care consulted, wound vac in place Seizure-like activity, resolved Patient had witnessed tonic-clonic seizure in the ED that lasted 2 minutes. Was initiated on keppra, but neuro recommended d/c'ing that. EEG showed no seizure-like activity -Consulted Neuro, appreciate recs -Seizure precautions Severe Bradycardia, resolved pt had episode of bradycardia to the 20's after the seizure. No further episodes since then. s/p 1mg atropine. EKG prior to this episode showed rate 75 with RBBB. Trops WNL Pt had h/o CAD s/p 1 stent Echo showed EF 45-50% -Consulted Dr. Liang with cardiology, appreciate recs. -Pt has external event recorder on per cardiology. -Hold all BB Heart Block, resolved Pt had an episode of heart block yesterday afternoon that has resolved. He is currently in NSR. -Dr. Liang recommended continued monitoring -EP recommended consideration of pacemaker placement after pt's wound heals -Pt has external event recorder in place per cards Fluid Overload, resolved Pt appeared fluid overloaded on CXR and has edema of BLE. This is likely 2/2 missed dialysis on Friday. Echo showed EF 45-50% -Consulted Dr. Madden with nephrology, appreciate recs. Plan for dialysis MWF -Consulted Dr. Liang with Cardiology Elevated BNP Pt BNP was 2214.5. No hx in [facility] of prior BNP or echo. Per pt has had echo' s with Dr. Liang. Echo showed EF 45-50% -Consulted Dr. Liang with cardiology, appreciate recs ESRD on HD Pt gets dialysis MWF and had recent revision of LUE fistula -Dr. Madden with nephrology has been consulted, appreciate recs -Plan for Dialysis MWF -Dr. Felder has been consulted to evaluate Fistula to make sure it is not infected HTN Pt previously on clonidine and carvedilol. Had restarted clonidine at lower dose, however pt did not tolerate this and BP' s dropped into the 90s/60s. -Discussed BP goals with Dr. Madden and he states that he would prefer if we held all BP meds and that he is okay with his BP as long as systolic is not greater than 200. -Will continue to monitor Anemia of CKD Pt Hb stable -Procrit weekly -Monitor DM2 Pt denies needing any medication for a few years. -Accuchecks ACHS -Mild SSI CAD s/p 1 stent Pt reports recent cath that was ok. s/p 1 stent several years ago -Aspirin -Plavix H/O tobacco abuse Pt is a former smoker with remote hx. -Encouraged continued cessation Dispo: CM on board for assistance with placement at a facility where he can receive wound care and TPN. <Lydia Epstein - Last Filed: 01/21/18 08:32> Attending Addendum - Attending Addendum Date/Time: 01/21/18 6114 I personally evaluated the patient and discussed the management with Dr. Epstein I agree with the History, Examination, Assessment and Plan documented above with any addition or exceptions noted below. 67 yo female with multiple medical conditions admitted for missed HD and seizure -like activity now with post-op wound infection and EC fistula. HD#9 States he continues to do well. No complaints. Wound vac still leaking VS reviewed. 1. s/p laprotomy on 12/30/17 now with postop complications. Attempted bariatric procedure but abandoned due to dense intrabdominal adhesions. 2. EC fistual: Continue NPO status and TPN for nutrition. Gen surg following. On Sandostatin. Adjust TPN based on intermittent labs. Wound vac to be replaced today. 4. ESRD on HD: Continue HD as scheduled. Nephro following. 5. Severe bradycardia with heart block: Improved. Cards following. Remains normal rate but borderline. Avoid AV samson agents. EP following also. 6. Seizure like activity: Has been evaluated by neuro. EEG negative. Potentially related to hypoperfusion due to bradycardia vs uremia from missed dialysis. No return symptoms since admission. 7. HTN: Hold meds due to hypotension. PRN as needed for severe range. 8. DM: Monitor for severe hyperglycemia Plans to d/c to home with home health and PT ABray <Trena Avila - Last Filed: 01/25/18 20:00>
--- NOTE | 2018-01-21 08:58 | PRG ---
DATE OF SERVICE: 01/21/2018 SUBJECTIVE: Mr. Linares is a 67-year-old white male with known history of end-stage renal disease and currently on maintenance hemodialysis. He was admitted for shortness of breath and symptomatic shyam cardia. At that time, his clonidine and his Coreg was placed on hold. The patient also has had abdo juwan surgery/exploratory laparotomy. He has an enterocutaneous fistula and currently, the abdominal wound is on a wound VAC. He is on n.p.o. and currently on TPN. Doing well overall. No new complai nts. PHYSICAL EXAMINATION: VITAL SIGNS: Blood pressure is noted at 91/48, heart rate 57, respiratory rate 18, temperature 98.7, pulse ox 96%. GENERAL: Noted to be awake, alert, comfortable, not in distress. SKIN: Adequate turgor. HEENT: The patient has slightly pale conjunctivae, anicteric sclerae. NECK: No neck mass, no carotid bruits, no JVD. CHEST: No deformities. LUNGS: Clear breath sounds, no wheezing, no crackles. HEART: Normal sinus rhythm. No murmur, no gallops or rubs. ABDOMEN: Globular, soft, nontender, no masses. Positive for wound VAC. EXTREMITIES: Trace edema. MEDICATIONS: Of 01/21/2018 was reviewed. LABORATORY DATA: Of 01/21/2018, white count 6.8, hemoglobin 8.8. Sodium was noted at 129, potassium 4.1, chloride 96, carbon dioxide 26, BUN 56, creatinine 6.56, calcium 8.8, phosphorus 2.1, magnesium 2.2, albumin 3.0. ASSESSMENT AND PLAN: 1. Abdominal enterocutaneous fistula - currently on n.p.o and TPN support. Doing well. 2. Mild hypophosphatemia - improving. Phosphorous was adjusted with the TPN by the surgery. 3. End-stage renal disease, stable. We will be continuing current hemodialysis regimen with this anitra fierro. I am currently at the bedside supervising his dialysis. 4. Anemia, continuing weekly Epogen with the patient. Recheck base met and CBC in a.m. ADDENDUM: Status post aneurysm repair of AV fistula. He complained of mild erythema, but this ramirez key I examined the lesion, it does not look infected. We will continue to observe it.
[2018-01-21] MEDS: Fluticasone Propionate Nasal Spray 16 gm Bottle NASAL SCH ×2 (09:30→21:19)
[2018-01-21] MEDS: Sevelamer Carbonate 800 MG TAB PO SCH ×3 (09:35→17:02)
[2018-01-21] MEDS: Lanthanum Carbonate 500 mg Tablet PO SCH ×3 (09:35→17:01)
[2018-01-21] MEDS: Loperamide HCl 2 MG CAP PO SCH ×4 (12:18→21:20)
[2018-01-21] MEDS: Cinacalcet HCl 30 MG TAB PO SCH (12:23)
[2018-01-21] MEDS: Fish Oil 1,000 MG CAP PO SCH (21:19)
[2018-01-21] MEDS: Aspirin 81 mg Enteric Coated Tablet PO SCH (21:19)
[2018-01-21] MEDS: Clopidogrel Bisulfate 75 MG TAB PO SCH (21:19)
[2018-01-21] MEDS: Ubidecarenone 50 MG CAP PO SCH (21:20)
[2018-01-21] MEDS: Pravastatin Sodium 20 MG TAB PO SCH (21:20)
[2018-01-21] MEDS: Vit A,C & E/Lutein/Minerals Tablet PO SCH (21:21)
[2018-01-21] MEDS: FAT EMULSION IV SCH (22:18)
[2018-01-21] MEDS: [UNRECOGNIZED DRUG - OTHER] IV SCH (22:18)
[2018-01-21] MEDS: SODIUM CHLORIDE IV SCH (22:18)
[2018-01-21] MEDS: POTASSIUM PHOSPHATE IV SCH (22:18)
--- NOTE | 2018-01-22 00:35 | PRG ---
DATE OF SERVICE: 01/21/2018 SUBJECTIVE: Mr. Linares remains comfortable on the surgical floor. He has no complaints. There are s till some challenges with caring for his wound VAC. It was removed this morning, a gauze dressing wa s applied. The wound VAC will be applied per Wound Care later today. He denies significant pain. PHYSICAL EXAMINATION: VITAL SIGNS: He is afebrile. Vital signs are essentially within normal limits. LUNGS: Clear to auscultation. ABDOMEN: Soft with normoactive bowel sounds. LABORATORY STUDIES: He continues to get daily labs and still has a normal white blood cell count and stable hemoglobin of 8.8. Chemistry profile reveals low levels of sodium and chloride again. His p hosphorus remains low at 2.1. In summary, he is more or less stable with an enterocutaneous fistula. PLAN: Plan to continue TPN, bowel rest, somatostatin and wound care.
[2018-01-22] MEDS: Insulin Regular 300 UNITS/3 ML VIAL SC PRN ×3 (01:04→18:40)
[2018-01-22 04:52] LABS: #Basophils 0.1 thou/uL (0.0-0.2); #Eosinphils 0.3 thou/uL (0.0-0.7); #Lymphocytes 1.2 thou/uL (1.20-3.40); #Monocytes 0.9 thou/uL (0.11-0.59); #Neutrophils 4.9 thou/uL (1.40-6.50); %Basophils 0.7 % (0.0-1.0); %Eosinophils 3.5 % (0.0-10.0); %Lymphocytes 16.8 % (21.0-51.0); %Monocytes 11.7 % (0.0-10.0); %Neutrophils 67.3 % (42.0-75.0); Hemoglobin 9.3 g/dL (14.0-18.0); Mean Corpuscular HGB CONC 31.4 g/dL (32.0-36.0); Mean Corpuscular Hemoglobin 30.8 pg (27.0-31.0); Mean Corpuscular Volume 98.2 fL (78.0-98.0); Mean Platelet Volume 7.4 fL (7.4-10.4); Platelet Count 328 thou/uL (130-400); RBC Distribution Width 13.7 % (11.5-14.5); Red Blood Cell (RBC) Count 3.01 mill/uL (4.70-6.10); White Blood Cell (WBC) Count 7.3 thou/uL (4.8-10.8)
[2018-01-22 05:27] LABS: ALT (SGPT) 25 U/L (8-55); AST (SGOT) 32 U/L (5-34); Albumin 3.2 g/dL (3.4-4.8); Alkaline Phosphatase 64 U/L (40-150); Anion Gap 14 mmol/L (10-20); BUN (Urea Nitrogen) 36 mg/dL (8.4-25.7); Bilirubin, Total 0.4 mg/dL (0.2-1.2); Calc. Creatinine Clearance 29 mL/min (70-130); Calcium 8.8 mg/dL (7.8-10.44); Carbon Dioxide 27 mmol/L (23-31); Chloride 96 mmol/L (98-107); Estimated GFR-MDRD 14; Globulin 5.1 g/dL (2.4-3.5); Glucose 123 mg/dL (80-115); Magnesium 2.1 mg/dL (1.6-2.6); Phosphorus 2.3 mg/dL (2.3-4.7); Potassium 4.1 mmol/L (3.5-5.1); Protein, Total 8.3 g/dL (5.8-8.1); Sodium 133 mmol/L (136-145)
[2018-01-22] MEDS: Octreotide Acetate 100 MCG/ML VIAL SC SCH ×3 (05:48→21:05)
[2018-01-22] MEDS: Loperamide HCl 2 MG CAP PO SCH ×4 (08:42→21:06)
[2018-01-22] MEDS: Fluticasone Propionate Nasal Spray 16 gm Bottle NASAL SCH ×2 (08:42→21:04)
[2018-01-22] MEDS: Lanthanum Carbonate 500 mg Tablet PO SCH ×3 (08:43→16:10)
[2018-01-22] MEDS: Sevelamer Carbonate 800 MG TAB PO SCH ×3 (08:43→16:10)
--- NOTE | 2018-01-22 08:48 | PDOC.FM ---
- Subjective Subjective: Patient denies any complaints this AM. He reports that he still has a dry dressing over his abdominal wound. He denies any N/V, fevers, chills, abdominal pain, LE swelling. - Objective MAR Reviewed: Yes Vital Signs & Weight: Vital Signs (12 hours) Temp Pulse Resp BP BP Pulse Ox 01/22/18 08:41 117/43 L 01/22/18 08:00 98.2 F 59 L 18 96 01/22/18 04:27 99.4 F 63 18 124/56 L 98 01/22/18 00:43 99.4 F 60 18 105/39 L 96 01/21/18 22:07 99 01/21/18 20:57 98.4 F 58 L 18 105/47 L 99 Weight Admit Weight 129.228 kg Weight 124.239 kg I&O: 01/21/18 01/22/18 01/23/18 06:59 06:59 06:59 Intake Total 2322 1234.8 Output Total 150 0 Balance 2172 1234.8 Result Diagrams: 01/22/18 04:32 01/22/18 04:32 <Lydia Epstein - Last Filed: 01/22/18 08:46> - Objective Vital Signs & Weight: Vital Signs (12 hours) Temp Pulse Resp BP Pulse Ox 01/25/18 15:25 98.1 F 60 18 148/74 H 100 01/25/18 12:00 98.6 F 64 12 92/53 L 97 Weight Admit Weight 129.228 kg Weight 123.831 kg I&O: 01/24/18 01/25/18 01/26/18 07:59 06:59 06:59 Intake Total 0 Output Total 200 Balance -200 Result Diagrams: 01/22/18 04:32 01/23/18 06:15 <Trena Avila - Last Filed: 01/25/18 20:02> Phys Exam - Physical Examination Constitutional: NAD HEENT: moist MMs, sclera anicteric Respiratory: no wheezing, no rales, no rhonchi, clear to auscultation bilateral Cardiovascular: RRR, no significant murmur, no rub Gastrointestinal: soft, non-tender, no distention, positive bowel sounds Musculoskeletal: no edema, pulses present Psychiatric: normal affect, A&O x 3 Deviation from normal: dressing in place over abdominal wound c/d/i <Lydia Epstein - Last Filed: 01/22/18 08:46> Dx/Plan (1) Enterocutaneous fistula Code(s): K63.2 - FISTULA OF INTESTINE Status: Acute (2) Postoperative wound infection Code(s): T81.49XA - INFECTION FOLLOWING A PROCEDURE, OTHER SURGICAL SITE, INIT Status: Acute (3) Seizure Code(s): R56.9 - UNSPECIFIED CONVULSIONS Status: Resolved (4) Bradycardia Code(s): R00.1 - BRADYCARDIA, UNSPECIFIED Status: Resolved (5) Fluid overload Code(s): E87.70 - FLUID OVERLOAD, UNSPECIFIED Status: Resolved Qualifiers: Hypervolemia type: other Qualified Code(s): E87.79 - Other fluid overload (6) Hyperkalemia Code(s): E87.5 - HYPERKALEMIA Status: Resolved (7) ESRD (end stage renal disease) on dialysis Code(s): N18.6 - END STAGE RENAL DISEASE; Z99.2 - DEPENDENCE ON RENAL DIALYSIS Status: Chronic (8) DM2 (diabetes mellitus, type 2) Status: Chronic Qualifiers: Diabetes mellitus senior care insulin use: without senior care use Diabetes mellitus complication status: with circulatory complication Diabetes mellitus complication detail: with other circulatory complications Qualified Code(s): E11.59 - Type 2 diabetes mellitus with other circulatory complications (9) CAD (coronary artery disease) Code(s): I25.10 - ATHSCL HEART DISEASE OF [place] CORONARY ARTERY W/O ANG PCTRS Status: Chronic Qualifiers: Coronary Disease-Associated Artery/Lesion type: [place] artery [place] vs. transplanted heart: [place] heart Associated angina: without angina Qualified Code(s): I25.10 - Atherosclerotic heart disease of [place] coronary artery without angina pectoris (10) Anemia Code(s): D64.9 - ANEMIA, UNSPECIFIED Status: Chronic Qualifiers: Anemia type: due to chronic kidney disease Chronic kidney disease stage: on chronic dialysis Qualified Code(s): N18.6 - End stage renal disease; D63.1 - Anemia in chronic kidney disease; Z99.2 - Dependence on renal dialysis (11) Lactic acid increased Code(s): E87.2 - ACIDOSIS Status: Resolved (12) Troponin level elevated Code(s): R74.8 - ABNORMAL LEVELS OF OTHER SERUM ENZYMES Status: Resolved (13) Former tobacco use Code(s): Z87.891 - PERSONAL HISTORY OF NICOTINE DEPENDENCE Status: Acute - Plan Plan: Enterocutaneous 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 -NPO with TPN -Wound care consulted, wound vac in place -Pt will likely need long-term IV placement for TPN - Dr. Bonilla plans for a Hickmann -General surgery on board, appreciate recs Post-Op Wound Infection Likely 2/2 Enterocutaneous Fistula Pt with wound infection of inferior aspect of laparotomy wound with some purulent drainage. -Dr. Bonilla with general surgery consulted, appreciate recs -Blood cultures NGTD -Wound care consulted, wound vac in place Seizure-like activity, resolved Patient had witnessed tonic-clonic seizure in the ED that lasted 2 minutes. Was initiated on keppra, but neuro recommended d/c'ing that. EEG showed no seizure-like activity -Consulted Neuro, appreciate recs -Seizure precautions Severe Bradycardia, resolved pt had episode of bradycardia to the 20's after the seizure. No further episodes since then. s/p 1mg atropine. EKG prior to this episode showed rate 75 with RBBB. Trops WNL Pt had h/o CAD s/p 1 stent Echo showed EF 45-50% -Consulted Dr. Liang with cardiology, appreciate recs. -Pt has external event recorder on per cardiology. -Hold all BB Heart Block, resolved Pt had an episode of heart block yesterday afternoon that has resolved. He is currently in NSR. -Dr. Liang recommended continued monitoring -EP recommended consideration of pacemaker placement after pt's wound heals -Pt has external event recorder in place per cards Fluid Overload, resolved Pt appeared fluid overloaded on CXR and has edema of BLE. This is likely 2/2 missed dialysis on Friday. Echo showed EF 45-50% -Consulted Dr. Madden with nephrology, appreciate recs. Plan for dialysis MWF -Consulted Dr. Liang with Cardiology Elevated BNP Pt BNP was 2214.5. [facility] prior BNP or echo. Per pt has had echo' s with Dr. Liang. Echo showed EF 45-50% -Consulted Dr. Liang with cardiology, appreciate recs ESRD on HD Pt gets dialysis MWF and had recent revision of LUE fistula -Dr. Madden with nephrology has been consulted, appreciate recs -Plan for Dialysis MWF -Dr. Felder has been consulted to evaluate Fistula to make sure it is not infected HTN Pt previously on clonidine and carvedilol. Had restarted clonidine at lower dose, however pt did not tolerate this and BP' s dropped into the 90s/60s. -Discussed BP goals with Dr. Madden and he states that he would prefer if we held all BP meds and that he is okay with his BP as long as systolic is not greater than 200. -Will continue to monitor Anemia of CKD Pt Hb stable -Procrit weekly -Monitor DM2 Pt denies needing any medication for a few years. -Accuchecks ACHS -Mild SSI CAD s/p 1 stent Pt reports recent cath that was ok. s/p 1 stent several years ago -Aspirin -Plavix H/O tobacco abuse Pt is a former smoker with remote hx. -Encouraged continued cessation Dispo: CM on board for assistance with placement at a facility where he can receive wound care and TPN vs home health <Lydia Epstein - Last Filed: 01/22/18 08:46> Attending Addendum - Attending Addendum Date/Time: 01/22/18 1001 I personally evaluated the patient and discussed the management with Dr. Epstein I agree with the History, Examination, Assessment and Plan documented above with any addition or exceptions noted below. 67 yo female with multiple medical conditions admitted for missed HD and seizure -like activity now with post-op wound infection and EC fistula. HD#10 No concerns overnight. VS reviewed. 1. s/p laprotomy on 12/30/17 now with postop complications. Attempted bariatric procedure but abandoned due to dense intrabdominal adhesions. 2. EC fistual: Continue NPO status and TPN for nutrition. Gen surg following. On Sandostatin. Adjust TPN based on intermittent labs. Still awaiting wound vac. 4. ESRD on HD: Continue HD as scheduled. Nephro following. 5. Severe bradycardia with heart block: Improved. Cards following. Avoid AV samson agents. EP following also. Patient on event monitor. 6. Seizure like activity: Has been evaluated by neuro. EEG negative. Potentially related to hypoperfusion due to bradycardia vs uremia from missed dialysis. No return symptoms since admission. 7. HTN: Monitor. Adjust meds as needed. 8. DM: Monitor for severe hyperglycemia Plans to d/c to home with home health and PT ABrayMD <Trena Avila - Last Filed: 01/25/18 20:02>
[2018-01-22] MEDS ORDERED: Famotidine/PF 20 mg/2ml Vial ONE (11:18)
[2018-01-22] MEDS ORDERED: Fentanyl 100 MCG/2 ML VIAL ONE (11:18)
[2018-01-22] MEDS ORDERED: Midazolam HCl 2 mg/2 ml Vial ONE (11:18)
[2018-01-22] MEDS ORDERED: Propofol 500 MG/50 ML VIAL ONE (11:18)
[2018-01-22] MEDS ORDERED: PROPOFOL 40 ML ONE (11:18)
[2018-01-22] MEDS: Cinacalcet HCl 30 MG TAB PO SCH (11:35)
[2018-01-22] MEDS ORDERED: ePHEDrine/0.9% NaCl/PF SYRINGE 50 mg/10 ml ONE (13:01)
[2018-01-22] MEDS ORDERED: Lidocaine 1% PF 5 ML VIAL ONE (13:01)
[2018-01-22] MEDS ORDERED: PROPOFOL 200 MG/20 ML VIAL ONE ×2 (13:01)
[2018-01-22] MEDS ORDERED: Ondansetron PF 4 MG/2 ML Vial ONE (13:01)
[2018-01-22] MEDS ORDERED: Heparin 5,000 UNITS/ML VIAL ONE (13:08)
[2018-01-22] MEDS ORDERED: Bupivacaine/Epinephrine 0.25% 30 ML VIAL ONE (13:08)
[2018-01-22] MEDS ORDERED: Lidocaine 2% w/Epinephrine 1:200K 20 ML VIAL ONE (13:08)
[2018-01-22] MEDS ORDERED: Lidocaine 2% PF 5 ML VIAL ONE (13:09)
[2018-01-22] MEDS ORDERED: Ondansetron HCl/PF 4 MG/2 ML Vial IVP PRN (13:58)
--- NOTE | 2018-01-22 15:44 | RAD ---
SINGLE VIEW CHEST: Date: 01/22/18 COMPARISON: 01/12/18. HISTORY: Coronado catheter insertion. FINDINGS: Single view of the chest shows an enlarged but stable cardiomediastinal silhouette. The right-sided c entral venous catheter is unchanged in position. There is a new left IJ central venous catheter with its tip in the superior vena cava. No pneumothorax is seen. There is no evidence of consolidation, ma ss, or pleural effusion. IMPRESSION: Status post left IJ central venous catheter placement without evidence of complication. POS: TOYIN
--- NOTE | 2018-01-22 20:45 | PDOC.EVN ---
Event Note - Event Note Event Note: Transition of Care Note: This is a 67 y/o M with PMHx of ESRD on HD (MWF), h/o recent fistula revision, and h/o recent attempted gastric sleeve sx who was found to be slightly volume overloaded on presentation due to missing a dialysis session. The patient was in the CT scanner and had a witnessed seizure by the tech that she described as him moving his legs in a funny way, eyes rolling back, biting his tongue, and defecating. This lasted 2 minutes. The patient was then brought back to his room and was found to be bradycardic to the 20's. The patient was seen by Dr. Madden and received dialysis that day. He improved from a volume standpoint. He had also initially been hyperkalemic to 5.5, however this resolved with dialysis as well. He did not require any additional dialysis sessions, but resumed his regular M/W/F routine the rest of his course. The patient was evaluated by cardiology for the bradycardia, and it was thought that it was related to the seizure-like activity vs beta phillip use vs electrolyte abnormalities. The patient was monitored on telemetry and had no further episodes of profound bradycardia, however he did develop an intermittent heart block. He had an echo that showed an EF of 45-50%. He was evaluated by EP who determined that the patient may be a candidate for a pacemaker when he improves from his acute illness. He was set up with an external event recorder by Dr. Liang once he was transferred out of telemetry. The patient was evaluated by neurology for the seizure-like activity. He had a brain CT that showed no acute intracranial abnormality. He had initially been started on keppra, however this was stopped by neuro as this was the patient's first seizure and he had an EEG done that showed no seizure-like activity. The patient had no recurrence of seizure-like activity as of 01/22/18. The patient was found to have purulent material leaking from his laparotomy incision. Dr. Bonilla was consulted and he opened the incision up and found a pocket of infectious appearing material. He drained this and had a wound vac placed over the site. The patient had no problems with this for the first few days, but then as he was preparing for discharge he was found to have enteric fluid leaking from the wound vac. An abdominal CT scan was done that confirmed an enterocutaneous fistula. The patient was then placed on TPN and made NPO. The wound vac was continued with the plan for the patient to remain NPO on TPN with a wound vac in place until the fistula healed. The patient was also started on octreotide and loperamide. The patient is deemed a very poor surgical candidate due to the extensive adhesions that were found on the attempted gastric sleeve procedure. The patient had a Coronado catheter placed on 01/22/18 for long-term TPN. The patient's discharge planning included options for either an LTAC that could provide TPN, wound care, PT, and HD, versus the patient going home with home health for those services and resuming regular dialysis.
[2018-01-22] MEDS: Pravastatin Sodium 20 MG TAB PO SCH (21:05)
[2018-01-22] MEDS: Fish Oil 1,000 MG CAP PO SCH (21:05)
[2018-01-22] MEDS: Ubidecarenone 50 MG CAP PO SCH (21:05)
[2018-01-22] MEDS: Aspirin 81 mg Enteric Coated Tablet PO SCH (21:05)
[2018-01-22] MEDS: Vit A,C & E/Lutein/Minerals Tablet PO SCH (21:05)
[2018-01-22] MEDS: Clopidogrel Bisulfate 75 MG TAB PO SCH (21:06)
[2018-01-22] MEDS: SODIUM CHLORIDE IV SCH (22:21)
[2018-01-22] MEDS: [UNRECOGNIZED DRUG - OTHER] IV SCH (22:21)
[2018-01-22] MEDS: POTASSIUM PHOSPHATE IV SCH (22:21)
[2018-01-22] MEDS: FAT EMULSION IV SCH (22:21)
[2018-01-23 04:48] VITALS: BMI 40.3
[2018-01-23] MEDS: Octreotide Acetate 100 MCG/ML VIAL SC SCH ×3 (05:25→20:18)
--- NOTE | 2018-01-23 06:47 | PDOC.FM ---
- Subjective Subjective: Patient doing well. No significant overnight events. Patient got Hickmann catheter yesterday. He was in dialysis all morning today. He states that he feels well, but he has noticed some leaking from his wound vac site. - Objective MAR Reviewed: Yes Vital Signs & Weight: Vital Signs (12 hours) Temp Pulse Resp BP Pulse Ox 01/23/18 03:53 98.3 F 61 16 108/51 L 95 01/22/18 23:52 97.7 F 64 16 103/46 L 96 01/22/18 20:00 91 L 01/22/18 19:46 98.6 F 63 20 104/57 L 91 L Weight Admit Weight 129.228 kg Weight 123.831 kg I&O: 01/21/18 01/22/18 01/23/18 06:59 06:59 06:59 Intake Total 2322 1234.8 1868.8 Output Total 150 0 50 Balance 2172 1234.8 1818.8 Result Diagrams: 01/22/18 04:32 01/23/18 06:15 EKG Reviewed by me: Yes Radiology Reviewed by me: Yes <Uinque Gutiérrez - Last Filed: 01/23/18 11:49> - Objective Vital Signs & Weight: Vital Signs (12 hours) Temp Pulse Resp BP Pulse Ox 01/25/18 15:25 98.1 F 60 18 148/74 H 100 01/25/18 12:00 98.6 F 64 12 92/53 L 97 Weight Admit Weight 129.228 kg Weight 123.831 kg I&O: 01/24/18 01/25/18 01/26/18 07:59 06:59 06:59 Intake Total 0 Output Total 200 Balance -200 Result Diagrams: 01/22/18 04:32 01/23/18 06:15 <Trena Avila - Last Filed: 01/25/18 20:06> Phys Exam - Physical Examination Constitutional: NAD HEENT: moist MMs Neck: supple Respiratory: no wheezing Cardiovascular: RRR Gastrointestinal: soft, no distention Musculoskeletal: pulses present Neurological: non-focal Psychiatric: normal affect, A&O x 3 Skin: cap refill <2 seconds <Unique Gutiérrez - Last Filed: 01/23/18 11:49> Dx/Plan (1) Enterocutaneous fistula Code(s): K63.2 - FISTULA OF INTESTINE Status: Acute (2) Former tobacco use Code(s): Z87.891 - PERSONAL HISTORY OF NICOTINE DEPENDENCE Status: Chronic (3) Postoperative wound infection Code(s): T81.49XA - INFECTION FOLLOWING A PROCEDURE, OTHER SURGICAL SITE, INIT Status: Acute (4) Anemia Code(s): D64.9 - ANEMIA, UNSPECIFIED Status: Chronic Qualifiers: Anemia type: due to chronic kidney disease Chronic kidney disease stage: on chronic dialysis Qualified Code(s): N18.6 - End stage renal disease; D63.1 - Anemia in chronic kidney disease; Z99.2 - Dependence on renal dialysis (5) CAD (coronary artery disease) Code(s): I25.10 - ATHSCL HEART DISEASE OF [place] CORONARY ARTERY W/O ANG PCTRS Status: Chronic Qualifiers: Coronary Disease-Associated Artery/Lesion type: [place] artery [place] vs. transplanted heart: [place] heart Associated angina: without angina Qualified Code(s): I25.10 - Atherosclerotic heart disease of [place] coronary artery without angina pectoris (6) DM2 (diabetes mellitus, type 2) Status: Chronic Qualifiers: Diabetes mellitus terminal gauger insulin use: without group home use Diabetes mellitus complication status: with circulatory complication Diabetes mellitus complication detail: with other circulatory complications Qualified Code(s): E11.59 - Type 2 diabetes mellitus with other circulatory complications (7) ESRD (end stage renal disease) on dialysis Code(s): N18.6 - END STAGE RENAL DISEASE; Z99.2 - DEPENDENCE ON RENAL DIALYSIS Status: Chronic (8) Bradycardia Code(s): R00.1 - BRADYCARDIA, UNSPECIFIED Status: Resolved (9) Fluid overload Code(s): E87.70 - FLUID OVERLOAD, UNSPECIFIED Status: Resolved Qualifiers: Hypervolemia type: other Qualified Code(s): E87.79 - Other fluid overload (10) Seizure Code(s): R56.9 - UNSPECIFIED CONVULSIONS Status: Resolved - Plan Plan: Enterocutaneous Fistula -Pt developed a post-op enterocutaneous fistula confirmed on CT scan. -NPO with TPN to be continued as outpatient. Pt opting to use [employer] -Wound care consulted, wound vac in place; will require wound care services through -[facility] 01/22 -General surgery on board, appreciate recs Post-Op Wound Infection -Likely 2/2 Enterocutaneous Fistula -Dr. Bonilla with general surgery consulted, appreciate recs -Blood cultures negative -Wound care consulted, wound vac in place -See plan as above Seizure-like activity, resolved -Patient had witnessed tonic-clonic seizure in the ED that lasted 2 minutes. -Was initiated on keppra, but neuro recommended d/c'ing -EEG showed no seizure-like activity -Neuro consulted, appreciate recs -Seizure precautions Severe bradycardia, resolved -pt had episode of bradycardia to the 20's after the seizure. No further episodes since then. -EKG prior to this episode showed rate 75 with RBBB. Trops WNL -Pt has h/o CAD s/p 1 stent -Echo showed EF 45-50% -Consulted Dr. Liang with cardiology, appreciate recs. -Pt has external event recorder on per cardiology. May need outpatient placement of pacer -Hold all BB Heart Block, resolved -Currently in NSR -EP recommended consideration of pacemaker placement after pt's wound heals -Pt has external event recorder in place per cards Fluid Overload, resolved -Echo showed EF 45-50%, BNP elevated >2000 -2/2 missed dialysis session -Consulted Dr. Madden with nephrology, appreciate recs. Plan for dialysis MWF Elevated BNP -Pt BNP was 2214.5. -Echo showed EF 45-50% -Consulted Dr. Liang with cardiology, appreciate recs ESRD on HD -Pt gets dialysis MWF and had recent revision of LUE fistula -Dr. Madden with nephrology has been consulted, appreciate recs -Plan for Dialysis MWF HTN -Pt previously on clonidine and carvedilol. -Had restarted clonidine at lower dose, however pt did not tolerate this and BP' s dropped into the 90s/60s. -Discussed BP goals with Dr. Madden and he states that he would prefer if we held all BP meds and that he is okay with his BP as long as systolic is not greater than 200. -Will continue to monitor Anemia of CKD -Pt Hb stable -Procrit weekly -Monitor DM2 -Pt denies needing any medication for a few years. -Accuchecks ACHS -Mild SSI CAD s/p 1 stent -Pt reports recent cath that was ok. s/p 1 stent several years ago -Aspirin -Plavix H/O tobacco abuse -Pt is a former smoker with remote hx. -Encouraged continued cessation Dispo: CM on board for assistance with placement at a facility where he can receive wound care and TPN vs home health. Patient preference of HH through previous HH provider and TPN from [employer]. Patient stable for d/c. D/c pending wound vac needs. Patient complaining of leaking from wound vac. <Unique Gutiérrez - Last Filed: 01/23/18 11:49> Attending Addendum - Attending Addendum Date/Time: 01/23/18 0904 I personally evaluated the patient and discussed the management with Dr. Epstein I agree with the History, Examination, Assessment and Plan documented above with any addition or exceptions noted below. 67 yo female with multiple medical conditions admitted for missed HD and seizure -like activity now with post-op wound infection and EC fistula. HD#11 Continues to have wound vac complications VS reviewed. 1. s/p laprotomy on 12/30/17 now with postop complications. Attempted bariatric procedure but abandoned due to dense intrabdominal adhesions. 2. EC fistual: Continue NPO status and TPN for nutrition. Permanent cath in place. Gen surg following. On Sandostatin. Adjust TPN based on intermittent labs. Continues to have wound vac complications. Unsure output over last few days. 4. ESRD on HD: Continue HD as scheduled. Nephro following. 5. Severe bradycardia with heart block: Improved. Cards following. Avoid AV samson agents. EP following also. Patient on event monitor. 6. Seizure like activity: Has been evaluated by neuro. EEG negative. Potentially related to hypoperfusion due to bradycardia vs uremia from missed dialysis. No return symptoms since admission. 7. HTN: Monitor. Adjust meds as needed. 8. DM: Monitor for severe hyperglycemia Plans to d/c to home with home health, wound care, and PT ABrayMD <Trena Avila - Last Filed: 01/25/18 20:06>
[2018-01-23 06:53] LABS: ALT (SGPT) 21 U/L (8-55); AST (SGOT) 34 U/L (5-34); Albumin 2.9 g/dL (3.4-4.8); Alkaline Phosphatase 67 U/L (40-150); Anion Gap 14 mmol/L (10-20); BUN (Urea Nitrogen) 64 mg/dL (8.4-25.7); Bilirubin, Total 0.3 mg/dL (0.2-1.2); Calc. Creatinine Clearance 21 mL/min (70-130); Calcium 8.7 mg/dL (7.8-10.44); Carbon Dioxide 24 mmol/L (23-31); Cardiac Risk 2.4 (Less than 4.5); Chloride 96 mmol/L (98-107); Cholesterol 58 mg/dl (< 200 Desired); Estimated GFR-MDRD 9; Globulin 4.8 g/dL (2.4-3.5); Glucose 165 mg/dL (80-115); HDL Cholesterol 24 mg/dL (>60 Neg Risk); LDL Cholesterol, Calculated 25 mg/dL; Magnesium 2.1 mg/dL (1.6-2.6); Phosphorus 3.5 mg/dL (2.3-4.7); Potassium 4.3 mmol/L (3.5-5.1); Protein, Total 7.7 g/dL (5.8-8.1); Sodium 130 mmol/L (136-145); Triglycerides 44 mg/dL (Less than 150)
[2018-01-23] MEDS: Lanthanum Carbonate 500 mg Tablet PO SCH ×3 (07:33→15:19)
[2018-01-23] MEDS: Fluticasone Propionate Nasal Spray 16 gm Bottle NASAL SCH ×2 (07:33→20:20)
[2018-01-23] MEDS: Loperamide HCl 2 MG CAP PO SCH ×4 (07:33→20:18)
[2018-01-23] MEDS: Sevelamer Carbonate 800 MG TAB PO SCH ×3 (07:33→15:19)
--- NOTE | 2018-01-23 07:41 | OP ---
DATE OF PROCEDURE: 01/22/2018 PREOPERATIVE DIAGNOSES: Enterocutaneous fistula with ongoing need for total parenteral nutrition. POSTOPERATIVE DIAGNOSES: Enterocutaneous fistula with ongoing need for total parenteral nutrition. OPERATION PERFORMED: Placement of left internal jugular Coronado catheter with ultrasound guidance. SURGEON: Son Bonilla M.D. ANESTHESIA: Total intravenous anesthesia with local using 0.25% Marcaine with epinephrine. INDICATIONS: The patient is a 67-year-old male. He has developed an enterocutaneous fistula followi ng recent laparotomy. He requires ongoing TPN in an attempt to manage this. [facility] Coronado catheter placement for TPN administration. OPERATIVE PROCEDURE IN DETAIL: Informed consent was obtained. The patient was taken to the operatin g room where total intravenous anesthesia was obtained with the patient in supine position. Left nec k and chest were prepped with ChloraPrep and draped in sterile fashion. He already had an indwelling central line in his right internal jugular vein. Ultrasound was utilized to identify the left inter nal jugular vein. Local anesthetic was infiltrated overlying this in the neck and a large gauge need le was advanced uneventfully into the left internal jugular vein. Guidewire was passed through this needle and fluoroscopically confirmed to enter the superior vena cava and right atrium. A site was selected on the left chest wall. Additional local anesthetic was infiltrated. A stab inc ision was created at this site and a tunneler was used to pass the double lumen Coronado catheter from the site in the chest wall up to the incision at the needle insertion site in the left neck. The cu ff was positioned about 2 cm from the skin opening on the chest. The catheter was secured at skin ex it site with 3-0 nylon suture. The catheter length was estimated by placement over the chest using f luoroscopy and the catheter was cut to appropriate length. Introducer dilator was passed over the gu idewire and fluoroscopically confirmed to enter the superior vena cava. The catheter was then passed through the introducer, which was removed in the usual peel-apart fashion. Fluoroscopy demonstrated that the catheter was within the central venous system, although it did not appear to turn down into the superior vena cava. This was felt to be adequate for a long-term access. Both lumens of the ca theter aspirated blood freely and were flushed with heparinized saline. The incision on the left nec k was closed in layers with 4-0 Monocryl suture. Dermabond was placed externally. Sterile occlusive dressing and Biopatch was placed over the catheter exit site on the chest wall. There were no compl ications. The patient tolerated the procedure well and was taken to recovery room in stable conditio n.
[2018-01-23] MEDS: Cinacalcet HCl 30 MG TAB PO SCH (11:21)
[2018-01-23] MEDS: Insulin Regular 300 UNITS/3 ML VIAL SC PRN ×2 (13:27→18:48)
--- NOTE | 2018-01-23 13:40 | PRG ---
DATE OF SERVICE: 01/23/2018 SUBJECTIVE: Mr. Linares is a 67-year-old female with end-stage renal disease being followed up by the [facility] for his maintenance hemodialysis. He is currently undergoing hemodialysis. He is tolerating said treatment. Earlier today, a left IJ catheter was placed by Dr. Son Bonilla. He continues to be on TPN. No complaints of chest pain or shortness of breath. OBJECTIVE: VITAL SIGNS: Blood pressure is 108/51, heart rate 61, respiratory rate 16, temperature 98.3, pulse ox 95%. GENERAL: Patient is awake, alert, comfortable, not in overt distress. SKIN: Adequate turgor. HEENT: He has slightly pale conjunctivae, anicteric sclerae. NECK: No neck mass, no carotid bruits, no JVD. CHEST: No deformities. LUNGS: Decreased breath sounds. HEART: Normal sinus rhythm. No murmur, no gallops, no rubs. ABDOMEN: Globular, soft, nontender, no masses. EXTREMITIES: Trace edema. MEDICATIONS: Of 01/23/2018 was reviewed. LABORATORY DATA: Of 01/23/2018, sodium 130, potassium 4.3, chloride 96, carbon dioxide 24, BUN 64, creatinine 6.16, glucose 165, phosphorus is 3.5, magnesium 2.1, albumin is 2.9. ASSESSMENT AND PLAN: 1. End-stage renal disease, stable. Tolerating current hemodialysis regimen. Fluid removal only as tolerated by the patient. 2. Chronic anemia, on weekly Epogen. 3. Enterocutaneous/abdominal fistula - currently on TPN. Surgery is following. Agree with current management. MTDD
--- NOTE | 2018-01-23 15:21 | PRG ---
DATE OF SERVICE: 01/23/2018 HISTORY OF PRESENT ILLNESS: Mr. Linares remains on the surgical floor. He again is in pretty good spi rits. He had dialysis today and apparently about 6 liters was taken off. He denies any pain. He do es note some drainage around his wound VAC; however. A [place] catheter was placed in his left inter nal jugular vein yesterday, but this has not yet been utilized. His chest x-ray shows good placement of the catheter. PHYSICAL EXAMINATION: VITAL SIGNS: He is afebrile, pulse is in the 60s, blood pressure is 116/63. LUNGS: Clear to auscultation. ABDOMEN: Soft with normoactive bowel sounds. I took down his dressing to examine his wound. The lo wer wound is clearly granulating down to a central point. When I removed the dressing, there was no continuous flow of any enteric or biliary material. I am not certain with a total output since this was last changed. There was an enteric fluid around the sponge however. A couple of centimeters sup eriorly, there was also some drainage. When I took out the staple, there was a small subcutaneous po cket. It appeared to have bloody containing fluid. It looked like more of an area of nonhealing are a of infection. LABORATORY STUDIES: His electrolytes show low levels of sodium. Potassium, phosphorus and magnesium are all normal. Liver function tests are normal. Albumin is a little bit low at 2.9. His CBC was not obtained today. PLAN: In summary, he is doing well. He is continuing on octreotide and loperamide to decrease his f istula output. He continues with TPN and wound VAC for wound care. Since he is still having issues with drainage at or around his wound VAC, I would recommend continued observation over the weekend. Hopefully, we will be able to discharge him home early this next week. A central line was placed as it is anticipated that he will require bowel rest and TPN for at least 9 0 days. It is also entirely unfeasible to pass a catheter beyond the point of his enterotomy in orde r to perform distal tube feeds. For this reason, he continues to require TPN.
[2018-01-23] MEDS: Clopidogrel Bisulfate 75 MG TAB PO SCH (20:18)
[2018-01-23] MEDS: Ubidecarenone 50 MG CAP PO SCH (20:18)
[2018-01-23] MEDS: Fish Oil 1,000 MG CAP PO SCH (20:18)
[2018-01-23] MEDS: Aspirin 81 mg Enteric Coated Tablet PO SCH (20:18)
[2018-01-23] MEDS: Vit A,C & E/Lutein/Minerals Tablet PO SCH (20:18)
[2018-01-23] MEDS: Pravastatin Sodium 20 MG TAB PO SCH (20:18)
[2018-01-23] MEDS: SODIUM CHLORIDE IV SCH (22:30)
[2018-01-23] MEDS: POTASSIUM PHOSPHATE IV SCH (22:30)
[2018-01-23] MEDS: FAT EMULSION IV SCH (22:30)
[2018-01-23] MEDS: [UNRECOGNIZED DRUG - OTHER] IV SCH (22:30)
[2018-01-24] MEDS: Octreotide Acetate 100 MCG/ML VIAL SC SCH ×3 (05:37→22:29)
--- NOTE | 2018-01-24 06:19 | PDOC.FM ---
- Subjective Subjective: NAEO. Patient states he feels well this AM. Is just a little fatigued after HD yesterday. Says they took about 6L off. Has not noticed any persistent leakage from his wound vac. - Objective MAR Reviewed: Yes Vital Signs & Weight: Vital Signs (12 hours) Temp Pulse Resp BP Pulse Ox 01/24/18 03:45 99.4 F 68 20 109/55 L 93 L 01/24/18 00:02 99.1 F 70 20 90/52 L 93 L 01/23/18 20:24 98.5 F 65 20 91/45 L 96 01/23/18 20:00 96 Weight Admit Weight 129.228 kg Weight 123.831 kg I&O: 01/22/18 01/23/18 01/24/18 06:59 06:59 06:59 Intake Total 1234.8 1868.8 1722 Output Total 0 50 200 Balance 1234.8 1818.8 1522 Result Diagrams: 01/22/18 04:32 01/23/18 06:15 <Tanna Barba - Last Filed: 01/24/18 08:28> - Objective Vital Signs & Weight: Vital Signs (12 hours) Temp Pulse Resp BP Pulse Ox 01/25/18 15:25 98.1 F 60 18 148/74 H 100 01/25/18 12:00 98.6 F 64 12 92/53 L 97 Weight Admit Weight 129.228 kg Weight 123.831 kg I&O: 01/24/18 01/25/18 01/26/18 07:59 06:59 06:59 Intake Total 0 Output Total 200 Balance -200 Result Diagrams: 01/22/18 04:32 01/23/18 06:15 <Trena Avila - Last Filed: 01/25/18 20:09> Phys Exam - Physical Examination Constitutional: NAD HEENT: moist MMs Neck: supple, full ROM Respiratory: no wheezing, no rales, no rhonchi, clear to auscultation bilateral Cardiovascular: RRR, no significant murmur distant heart sounds 2/2 body habitus Gastrointestinal: no distention wound vac clean, dry and intact w/ no obvious leak noted Musculoskeletal: no edema, pulses present Neurological: non-focal, normal sensation, moves all 4 limbs Psychiatric: normal affect, A&O x 3 Skin: no rash, normal turgor <Tanna Barba - Last Filed: 01/24/18 08:28> Dx/Plan (1) Enterocutaneous fistula Code(s): K63.2 - FISTULA OF INTESTINE Status: Acute (2) Postoperative wound infection Code(s): T81.49XA - INFECTION FOLLOWING A PROCEDURE, OTHER SURGICAL SITE, INIT Status: Resolved (3) Anemia Code(s): D64.9 - ANEMIA, UNSPECIFIED Status: Chronic Qualifiers: Anemia type: due to chronic kidney disease Chronic kidney disease stage: on chronic dialysis Qualified Code(s): N18.6 - End stage renal disease; D63.1 - Anemia in chronic kidney disease; Z99.2 - Dependence on renal dialysis (4) CAD (coronary artery disease) Code(s): I25.10 - ATHSCL HEART DISEASE OF [place] CORONARY ARTERY W/O ANG PCTRS Status: Chronic Qualifiers: Coronary Disease-Associated Artery/Lesion type: [place] artery [place] vs. transplanted heart: [place] heart Associated angina: without angina Qualified Code(s): I25.10 - Atherosclerotic heart disease of [place] coronary artery without angina pectoris (5) DM2 (diabetes mellitus, type 2) Status: Chronic Qualifiers: Diabetes mellitus correction insulin use: without dog catcher use Diabetes mellitus complication status: with circulatory complication Diabetes mellitus complication detail: with other circulatory complications Qualified Code(s): E11.59 - Type 2 diabetes mellitus with other circulatory complications (6) ESRD (end stage renal disease) on dialysis Code(s): N18.6 - END STAGE RENAL DISEASE; Z99.2 - DEPENDENCE ON RENAL DIALYSIS Status: Chronic (7) Former tobacco use Code(s): Z87.891 - PERSONAL HISTORY OF NICOTINE DEPENDENCE Status: Chronic (8) Bradycardia Code(s): R00.1 - BRADYCARDIA, UNSPECIFIED Status: Resolved (9) Fluid overload Code(s): E87.70 - FLUID OVERLOAD, UNSPECIFIED Status: Resolved Qualifiers: Hypervolemia type: other Qualified Code(s): E87.79 - Other fluid overload (10) Hyperkalemia Code(s): E87.5 - HYPERKALEMIA Status: Resolved (11) Lactic acid increased Code(s): E87.2 - ACIDOSIS Status: Resolved (12) Seizure Code(s): R56.9 - UNSPECIFIED CONVULSIONS Status: Resolved (13) Troponin level elevated Code(s): R74.8 - ABNORMAL LEVELS OF OTHER SERUM ENZYMES Status: Resolved (14) Abscess Code(s): L02.91 - CUTANEOUS ABSCESS, UNSPECIFIED Status: Acute (15) Peritonitis Code(s): K65.9 - PERITONITIS, UNSPECIFIED Status: Resolved (16) Sepsis Code(s): A41.9 - SEPSIS, UNSPECIFIED ORGANISM Status: Resolved - Plan Plan: Enterocutaneous Fistula -Pt developed a post-op enterocutaneous fistula confirmed on CT scan. - Will keep NPO with TPN & continue somatastatin & loperamide per recs of general surgery to be continued as outpatient to promote fistula healing. Pt opting to use [facility] [employer] -Wound care consulted, wound vac in place; will require wound care services through -Hickmann placed 01/22 -General surgery on board, appreciate recs. Post-Op Wound Infection -Likely 2/2 Enterocutaneous Fistula -Dr. Bonilla with general surgery consulted, appreciate recs -Blood cultures negative -Wound care consulted & wound vac in place -See plan as above Seizure-like activity, resolved -Patient had witnessed tonic-clonic seizure in the ED on admission that lasted 2 minutes. -Was started on keppra but neuro recommended d/c'ing -EEG showed no seizure-like activity -Neuro consulted, appreciate recs -Will continue seizure precautions Severe bradycardia, resolved -pt had episode of bradycardia to the 20's after the seizure. No further episodes since then. -EKG prior to this episode showed rate 75 with RBBB. Trops WNL -Pt has h/o CAD s/p 1 stent & Echo this admission showed an EF of 45-50% -Consulted Dr. Liang with cardiology, appreciate recs. -Pt has external event recorder on per cardiology. May need outpatient placement of pacer -Will continue to hold all BB Heart Block, resolved -Currently in NSR -EP recommended consideration of pacemaker placement after pt's wound heals -Pt has external event recorder in place per cards Fluid Overload, resolved -Echo showed EF 45-50%, BNP elevated >2000 -Likely 2/2 missed dialysis session -Consulted Dr. Madden with nephrology, appreciate recs. Will continue normal MWF HD schedule. Elevated BNP -Pt BNP was 2214.5. -Echo showed EF 45-50% -Consulted Dr. Liang with cardiology, appreciate recs ESRD on HD -Pt gets dialysis MWF and had recent revision of LUE fistula -Dr. Madden with nephrology has been consulted, appreciate recs -Will continue Dialysis on MWF HTN -Pt previously on clonidine and carvedilol. -Had restarted clonidine at lower dose, however pt did not tolerate this and BP' s dropped into the 90s/60s. -Will continue to monitor & hold all BP home meds and treat only if SBP is >[address] Madden. Anemia of CKD -Pt Hgb stable - Will continue Procrit weekly -Monitor DM2 -Pt denies needing any medication for a few years. Getting an A1c today. - BG has been in the 100s consistently w/ a few above 200. - Will consider consulting dieticians to possibly add insulin in TPN based on A1c as patient cannot take PO meds. -Accuchecks ACHS -Mild SSI CAD s/p 1 stent -Pt reports recent cath that was ok. s/p 1 stent several years ago - Will continue Aspirin & Plavix H/O tobacco abuse -Pt is a former smoker with remote hx. -Encouraged continued cessation Dispo: CM on board for assistance with placement at a facility where he can receive wound care and TPN vs home health. Patient preference of HH through previous HH provider and TPN from [place]. Patient stable for d/c. Anticipate likely d/c Friday depending on recs from general surgery regarding wound vac management. <Tanna Barba - Last Filed: 01/24/18 08:28> Attending Addendum - Attending Addendum Date/Time: 01/24/18 1107 I personally evaluated the patient and discussed the management with Dr. Barba I agree with the History, Examination, Assessment and Plan documented above with any addition or exceptions noted below. 67 yo male with multiple medical conditions admitted for missed HD and seizure- like activity now with post-op wound infection and EC fistula. HD#12 Wound vac stable without leak overnight VS reviewed. 1. s/p laprotomy on 12/30/17 now with postop complications. Attempted bariatric procedure but abandoned due to dense intrabdominal adhesions. 2. EC fistual: Continue NPO status and TPN for nutrition. Permanent cath in place. Gen surg following. On Sandostatin. Adjust TPN based on intermittent labs. Continues to have wound vac complications, however no leaks overnight. Unsure output over last few days. 4. ESRD on HD: Continue HD as scheduled. Nephro following. 5. Severe bradycardia with heart block: Improved. Cards following. Avoid AV samson agents. EP following also. Patient on event monitor. 6. Seizure like activity: Has been evaluated by neuro. EEG negative. Potentially related to hypoperfusion due to bradycardia vs uremia from missed dialysis. No return symptoms since admission. 7. HTN: Monitor. Adjust meds as needed. 8. DM: Monitor for severe hyperglycemia Plans to d/c to home with home health, wound care, and PT ABrayMD <Trena Avila - Last Filed: 01/25/18 20:09>
[2018-01-24 08:25] LABS: Hemoglobin A1c 5.6 % (4.0-6.0)
--- NOTE | 2018-01-24 09:01 | PRG ---
DATE OF SERVICE: 01/24/2018 SUBJECTIVE: The patient says he is not really having any pain, no nausea or vomiting, doing well. PHYSICAL EXAMINATION: VITAL SIGNS: His temperature is 98.7, pulse 66, blood pressure 92/53. Drainage is [address] the [address] 24 hours out of his fistula. ABDOMEN: Soft, obese. He has some mild erythema surrounding the wound VAC that is draining the ente rocutaneous fistula. LABORATORY DATA: His sodium is 130, creatinine 6.1, BUN of 64, glucose 165. 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 PLAN: Continued wound care.
[2018-01-24] MEDS: Lanthanum Carbonate 500 mg Tablet PO SCH (09:54)
[2018-01-24] MEDS: Fluticasone Propionate Nasal Spray 16 gm Bottle NASAL SCH ×2 (09:55→19:57)
[2018-01-24] MEDS: Sevelamer Carbonate 800 MG TAB PO SCH ×3 (09:55→17:58)
[2018-01-24] MEDS: Loperamide HCl 2 MG CAP PO SCH ×4 (09:55→19:57)
--- NOTE | 2018-01-24 11:50 | PRG ---
DATE OF SERVICE: 01/24/2018 SUBJECTIVE: Mr. Linares is a 67-year-old male with ESRD being followed up by the [facility] for his maintenance hemodialysis. He underwent dialysis yesterday without any difficulties, doing well. He is currently on n.p.o. due to the persistent enterocutaneous fistula - in the abdomen. He has a wound VAC. No complaints of chest pain or shortness of breath. PHYSICAL EXAMINATION: VITAL SIGNS: Blood pressure is 92/53, heart rate 66, respiratory rate 22, temperature 98.7, pulse oximetry 92%. GENERAL: Awake, sitting comfortable, not in distress. SKIN: Adequate turgor. HEENT: He has slightly pale conjunctivae, anicteric sclerae. NECK: No neck mass, no carotid bruits, no JVD. CHEST: No deformities. LUNGS: Clear breath sounds, no wheezing, no crackles. HEART: Normal sinus rhythm. No murmur, no gallops or rubs. ABDOMEN: Globular, soft, nontender. No masses. Positive for enterocutaneous fistula with a wound VAC. EXTREMITIES: Trace edema. Medications of January 24, 2018, were reviewed. LABORATORY DATA: Laboratories of January 22, 2018, white count 7.2, hemoglobin 9.3. January 23, 2018; sodium 130, potassium 4.2, chloride 96, carbon dioxide 24, BUN 64, creatinine 6.16, albumin 2.9, phosphorus 3.5, magnesium 2.1. January 24, 2018, glucose 237. ASSESSMENT AND PLAN: 1. End-stage renal disease, stable. No indication for any dialytic intervention. Tolerating current dialysis. Fluid removal only as tolerated. 2. Chronic anemia, on weekly Epogen. Adjust as needed 3. Abdominal enterocutaneous fistula. Surgery is following. Currently on wound VAC. Continue supportive care. I have decided to discontinue Fosrenol and Renvela since the patient is currently not eating. MTDD
[2018-01-24] MEDS: Cinacalcet HCl 30 MG TAB PO SCH (12:56)
[2018-01-24] MEDS: Insulin Regular 300 UNITS/3 ML VIAL SC PRN ×3 (12:56→22:29)
[2018-01-24] MEDS: Vit A,C & E/Lutein/Minerals Tablet PO SCH (19:56)
[2018-01-24] MEDS: Aspirin 81 mg Enteric Coated Tablet PO SCH (19:56)
[2018-01-24] MEDS: Ubidecarenone 50 MG CAP PO SCH (19:56)
[2018-01-24] MEDS: Fish Oil 1,000 MG CAP PO SCH (19:56)
[2018-01-24] MEDS: Pravastatin Sodium 20 MG TAB PO SCH (19:56)
[2018-01-24] MEDS: Clopidogrel Bisulfate 75 MG TAB PO SCH (19:57)
[2018-01-24] MEDS: FAT EMULSION IV SCH (22:30)
[2018-01-24] MEDS: SODIUM CHLORIDE IV SCH (22:30)
[2018-01-24] MEDS: [UNRECOGNIZED DRUG - OTHER] IV SCH (22:30)
[2018-01-24] MEDS: POTASSIUM PHOSPHATE IV SCH (22:30)
[2018-01-25] MEDS: Octreotide Acetate 100 MCG/ML VIAL SC SCH ×3 (05:25→21:27)
--- NOTE | 2018-01-25 06:21 | PDOC.FM ---
- Subjective Subjective: NAEO. Patient state he feel well this AM. Did endorse another leak in his would vac overnight that his was able to repair but that recurred by the time we rounded on the patient. Is also concerned about the fact that his BG has continued to run high and he required more sliding scale yesterday than he has been so far this hospitalization. - Objective MAR Reviewed: Yes Vital Signs & Weight: Vital Signs (12 hours) Temp Pulse Resp BP Pulse Ox 01/25/18 03:44 99.2 F 69 20 114/64 97 01/25/18 00:25 98.2 F 64 18 99/61 98 01/24/18 20:00 98.4 F 61 22 H 98/57 L 94 L 01/24/18 19:57 94 L Weight Admit Weight 129.228 kg Weight 123.831 kg I&O: 01/23/18 01/24/18 01/25/18 06:59 06:59 05:59 Intake Total 1868.8 1722 240 Output Total 50 200 400 Balance 1818.8 1522 -160 Result Diagrams: 01/22/18 04:32 01/23/18 06:15 <Tanna Barba - Last Filed: 01/25/18 11:10> - Objective Vital Signs & Weight: Vital Signs (12 hours) Temp Pulse Resp BP BP Pulse Ox 01/25/18 07:26 98.9 F 69 14 100/60 96 01/25/18 03:44 99.2 F 69 20 114/64 97 01/25/18 00:25 98.2 F 64 18 99/61 98 Weight Admit Weight 129.228 kg Weight 123.831 kg I&O: 01/24/18 01/25/18 01/26/18 07:59 06:59 06:59 Intake Total Output Total Balance Result Diagrams: 01/22/18 04:32 01/23/18 06:15 <Trena Avila - Last Filed: 01/25/18 20:11> Phys Exam - Physical Examination Constitutional: NAD HEENT: moist MMs Neck: supple, full ROM Respiratory: no wheezing, no rales, no rhonchi, clear to auscultation bilateral Cardiovascular: RRR, no significant murmur Gastrointestinal: soft, non-tender, no distention, positive bowel sounds wound vac secure over fistula with no obvious leaks brown fluid noted to have soaked through both towels over wound vac Musculoskeletal: no edema Neurological: non-focal, normal sensation, moves all 4 limbs Psychiatric: normal affect, A&O x 3 Skin: no rash, normal turgor <Tanna Barba - Last Filed: 01/25/18 11:10> Dx/Plan (1) Enterocutaneous fistula Code(s): K63.2 - FISTULA OF INTESTINE Status: Acute (2) Postoperative wound infection Code(s): T81.49XA - INFECTION FOLLOWING A PROCEDURE, OTHER SURGICAL SITE, INIT Status: Resolved (3) Anemia Code(s): D64.9 - ANEMIA, UNSPECIFIED Status: Chronic Qualifiers: Anemia type: due to chronic kidney disease Chronic kidney disease stage: on chronic dialysis Qualified Code(s): N18.6 - End stage renal disease; D63.1 - Anemia in chronic kidney disease; Z99.2 - Dependence on renal dialysis (4) CAD (coronary artery disease) Code(s): I25.10 - ATHSCL HEART DISEASE OF [place] CORONARY ARTERY W/O ANG PCTRS Status: Chronic Qualifiers: Coronary Disease-Associated Artery/Lesion type: [place] artery [place] vs. transplanted heart: [place] heart Associated angina: without angina Qualified Code(s): I25.10 - Atherosclerotic heart disease of [place] coronary artery without angina pectoris (5) DM2 (diabetes mellitus, type 2) Status: Chronic Qualifiers: Diabetes mellitus jail insulin use: without jail use Diabetes mellitus complication status: with circulatory complication Diabetes mellitus complication detail: with other circulatory complications Qualified Code(s): E11.59 - Type 2 diabetes mellitus with other circulatory complications (6) ESRD (end stage renal disease) on dialysis Code(s): N18.6 - END STAGE RENAL DISEASE; Z99.2 - DEPENDENCE ON RENAL DIALYSIS Status: Chronic (7) Former tobacco use Code(s): Z87.891 - PERSONAL HISTORY OF NICOTINE DEPENDENCE Status: Chronic (8) Bradycardia Code(s): R00.1 - BRADYCARDIA, UNSPECIFIED Status: Resolved (9) Fluid overload Code(s): E87.70 - FLUID OVERLOAD, UNSPECIFIED Status: Resolved Qualifiers: Hypervolemia type: other Qualified Code(s): E87.79 - Other fluid overload (10) Hyperkalemia Code(s): E87.5 - HYPERKALEMIA Status: Resolved (11) Lactic acid increased Code(s): E87.2 - ACIDOSIS Status: Resolved (12) Seizure Code(s): R56.9 - UNSPECIFIED CONVULSIONS Status: Resolved (13) Troponin level elevated Code(s): R74.8 - ABNORMAL LEVELS OF OTHER SERUM ENZYMES Status: Resolved (14) Abscess Code(s): L02.91 - CUTANEOUS ABSCESS, UNSPECIFIED Status: Acute (15) Peritonitis Code(s): K65.9 - PERITONITIS, UNSPECIFIED Status: Resolved (16) Sepsis Code(s): A41.9 - SEPSIS, UNSPECIFIED ORGANISM Status: Resolved - Plan Plan: Enterocutaneous Fistula - Pt developed a post-op enterocutaneous fistula confirmed on CT scan. - Will keep NPO with TPN & continue somatastatin & loperamide per recs of general surgery to be continued as outpatient to promote fistula healing. Pt opting to use [facility] [employer] [facility] for TPN upon discharge. - Wound care consulted, wound vac in place; will require wound care services through . Output of 200cc overnight but had a recurrent leak this AM. - Hickmann placed on 01/22 - General surgery on board, appreciate recs. Post-Op Wound Infection - Likely 2/2 Enterocutaneous Fistula - Dr. Bonilla with general surgery consulted, appreciate recs - Blood cultures negative - Wound care consulted & wound vac in place - See plan as above Seizure-like activity, resolved -Patient had witnessed tonic-clonic seizure in the ED on admission that lasted 2 minutes. -Was started on keppra but neuro recommended d/c'ing -EEG showed no seizure-like activity -Neuro consulted, appreciate recs -Will continue seizure precautions Severe bradycardia, resolved -pt had episode of bradycardia to the 20's after the seizure. No further episodes since then. -EKG prior to this episode showed rate 75 with RBBB. Trops WNL -Pt has h/o CAD s/p 1 stent & Echo this admission showed an EF of 45-50% -Consulted Dr. Liang with cardiology, appreciate recs. -Pt has external event recorder on per cardiology. May need outpatient placement of pacer -Will continue to hold all BB Heart Block, resolved -Currently in NSR -EP recommended consideration of pacemaker placement after pt's wound heals -Pt has external event recorder in place per cards Fluid Overload, resolved -Echo showed EF 45-50%, BNP elevated >2000 -Likely 2/2 missed dialysis session -Consulted Dr. Madden with nephrology, appreciate recs. Will continue normal MWF HD schedule. Elevated BNP -Pt BNP was 2214.5. -Echo showed EF 45-50% -Consulted Dr. Liang with cardiology, appreciate recs ESRD on HD -Pt gets dialysis MWF and had recent revision of LUE fistula -Dr. Madden with nephrology has been consulted, appreciate recs -Will continue Dialysis on MWF HTN -Pt previously on clonidine and carvedilol. -Had restarted clonidine at lower dose, however pt did not tolerate this and BP' s dropped into the 90s/60s. -Will continue to monitor & hold all BP home meds and treat only if SBP is >[address] Madden. Anemia of CKD -Pt Hgb stable - Will continue Procrit weekly -Monitor DM2 - Pt denies needing any medication for a few years. - BG was consistently above 200 yesterday. Will touch base w/ dieticians today to get insulin added back to TPN as improved glycemic control will be crucial to his fistula wound healing. - Will consult dieticians to possibly add insulin back to his TPN today as his BG levels were consistently >200 yesterday since taking insulin out of it. Will start on basal insulin tonight to cover him until we can get recs from dieticians. - Will continue accuchecks ACHS & mild SSI for now. CAD s/p 1 stent -Pt reports recent cath that was ok. s/p 1 stent several years ago - Will continue Aspirin & Plavix H/O tobacco abuse -Pt is a former smoker with remote hx. -Encouraged continued cessation Dispo: CM on board for assistance with placement at a facility where he can receive wound care and TPN vs home health. Patient preference of HH through previous HH provider and TPN from [facility]. Patient stable for d/c. Anticipate likely d/c Friday depending on recs from general surgery regarding wound vac management. <Tanna Barba - Last Filed: 01/25/18 11:10> Attending Addendum - Attending Addendum Date/Time: 01/25/18 1003 I personally evaluated the patient and discussed the management with Dr. Barba I agree with the History, Examination, Assessment and Plan documented above with any addition or exceptions noted below. 67 yo male with multiple medical conditions admitted for missed HD and seizure- like activity now with post-op wound infection and EC fistula. HD#13 Wound vac with continued leak overnight VS reviewed. 1. s/p laprotomy on 12/30/17 now with postop complications. Attempted bariatric procedure but abandoned due to dense intrabdominal adhesions. 2. EC fistual: Continue NPO status and TPN for nutrition. Permanent cath in place. Gen surg following. On Sandostatin. Adjust TPN based on intermittent labs. Leak overnight and this AM. Unsure output over last few days. 4. ESRD on HD: Continue HD as scheduled. Nephro following. 5. Severe bradycardia with heart block: Improved. Cards following. Avoid AV samson agents. EP following also. Patient on event monitor. 6. Seizure like activity: Has been evaluated by neuro. EEG negative. Potentially related to hypoperfusion due to bradycardia vs uremia from missed dialysis. No return symptoms since admission. 7. HTN: Monitor. Adjust meds as needed. 8. DM: Monitor for severe hyperglycemia. Since TPN changed unable to have insulin in bag. Will add basal rate. Plans to d/c to home with home health, wound care, and PT ABrayMD <Trena Avila - Last Filed: 01/25/18 20:11>
[2018-01-25] MEDS: Insulin Regular 300 UNITS/3 ML VIAL SC PRN ×3 (06:43→18:01)
[2018-01-25] MEDS: Fluticasone Propionate Nasal Spray 16 gm Bottle NASAL SCH ×2 (09:19→21:27)
[2018-01-25] MEDS: Loperamide HCl 2 MG CAP PO SCH ×4 (09:24→21:26)
--- NOTE | 2018-01-25 11:03 | PRG ---
DATE OF SERVICE: 01/25/2018 SUBJECTIVE: Mr. Linares is a 67-year-old white male being followed by the [facility] for his mainte nance hemodialysis. He has not had dialysis over the weekend and is doing well. He is tolerating th e current TPN. He denies any chest pain, shortness of breath. Please note he is being followed by lyla guevara due to abdominal enterocutaneous fistula. He is on TPN support. He is also on loperamide and octreotide to thicken the secretions of the fistula as well as decreased the secretions. PHYSICAL EXAMINATION: VITAL SIGNS: Blood pressure is 100/60, heart rate 69, respiratory rate 14, temperature 98.9, pulse o x 96%. GENERAL: Noted to be awake, alert, comfortable, not in overt distress. SKIN: Adequate turgor. HEENT: He has slightly pale conjunctivae, anicteric sclerae. NECK: No neck mass, no carotid bruits, no JVD. CHEST: No deformities. LUNGS: Decreased breath sounds. HEART: Normal sinus rhythm. No murmurs, no gallops, no rubs. ABDOMEN: Globular, soft, nontender, no masses. EXTREMITIES: No edema, no deformities. He has a positive wound VAC in the abdomen. MEDICATIONS: Medications of 01/25/2018 was reviewed. LABORATORY DATA: Laboratories of 01/25/2018, glucose 267. On 01/23/2018, potassium 4.3. ASSESSMENT AND PLAN: 1. End-stage renal disease, stable. Continuing Friday, Friday and Friday dialysis. We will be r echecking a base met and CBC tomorrow. Fluid removal only as tolerated. 2. Abdominal enterocutaneous fistula. Continue supportive care. Currently on n.p.o. and TPN suppor t. Surgery is currently following. 3. Anemia, continuing weekly Epogen. As previously mentioned, recheck base met and CBC in a.m.
[2018-01-25] MEDS: Cinacalcet HCl 30 MG TAB PO SCH (12:50)
--- NOTE | 2018-01-25 14:43 | PRG ---
DATE OF SERVICE: 01/25/2018 SUBJECTIVE: The patient says he feels really good. He does not have any pain, no nausea or vomiting . His wound VAC was leaking, so it had to be removed and he has now got wet to dry dressing changes. PHYSICAL EXAMINATION: VITAL SIGNS: Temperature 98.6, pulse 64, blood pressure 92/53. GENERAL: He is awake, alert, in no apparent distress. HEENT: Unremarkable. LUNGS: Clear. HEART: Regular rate and rhythm. ABDOMEN: Soft, really no significant tenderness. No cellulitis. The wound is open and beginning to granulate well. ASSESSMENT: Doing well. PLAN: Continue postop care.
[2018-01-25] MEDS ORDERED: Insulin Glargine 15 UNITS in Pre-Filled Syringe 1 EACH SC SCH (21:00)
[2018-01-25] MEDS: Vit A,C & E/Lutein/Minerals Tablet PO SCH (21:26)
[2018-01-25] MEDS: Aspirin 81 mg Enteric Coated Tablet PO SCH (21:26)
[2018-01-25] MEDS: Ubidecarenone 50 MG CAP PO SCH (21:26)
[2018-01-25] MEDS: Fish Oil 1,000 MG CAP PO SCH (21:27)
[2018-01-25] MEDS: Clopidogrel Bisulfate 75 MG TAB PO SCH (21:27)
[2018-01-25] MEDS: Pravastatin Sodium 20 MG TAB PO SCH (21:27)
[2018-01-25] MEDS: POTASSIUM PHOSPHATE IV SCH (22:10)
[2018-01-25] MEDS: [UNRECOGNIZED DRUG - OTHER] IV SCH (22:10)
[2018-01-25] MEDS: SODIUM CHLORIDE IV SCH (22:10)
[2018-01-25] MEDS: FAT EMULSION IV SCH (22:10)
--- NOTE | 2018-01-26 06:28 | PDOC.FM ---
- Subjective Subjective: Patient is seen in dialysis today. He has no complaints. He is feeling much better since admission. He denies fever, cp, mckinney, and n/v/c/d. No acute events overngiht. - Objective MAR Reviewed: Yes Vital Signs & Weight: Vital Signs (12 hours) Temp Pulse Resp BP Pulse Ox 01/26/18 04:00 97.2 F L 73 18 105/57 L 96 01/26/18 00:00 98.5 F 61 17 106/54 L 95 01/25/18 20:00 98.0 F 60 20 104/45 L 96 Weight Admit Weight 129.228 kg Weight 123.831 kg I&O: 01/24/18 01/25/18 01/26/18 07:59 06:59 06:59 Intake Total 0 Output Total 200 Balance -200 Result Diagrams: 01/26/18 06:45 01/26/18 06:45 Phys Exam - Physical Examination Constitutional: NAD HEENT: moist MMs Respiratory: no wheezing, no rales, clear to auscultation bilateral Cardiovascular: RRR, no significant murmur Gastrointestinal: soft, non-tender, positive bowel sounds wound vac in place without leakage Musculoskeletal: no edema, pulses present Neurological: moves all 4 limbs Psychiatric: A&O x 3 Dx/Plan (1) Postoperative wound infection Code(s): T81.49XA - INFECTION FOLLOWING A PROCEDURE, OTHER SURGICAL SITE, INIT Status: Resolved (2) Enterocutaneous fistula Code(s): K63.2 - FISTULA OF INTESTINE Status: Acute (3) Anemia Code(s): D64.9 - ANEMIA, UNSPECIFIED Status: Chronic Qualifiers: Anemia type: due to chronic kidney disease Chronic kidney disease stage: on chronic dialysis Qualified Code(s): N18.6 - End stage renal disease; D63.1 - Anemia in chronic kidney disease; Z99.2 - Dependence on renal dialysis (4) CAD (coronary artery disease) Code(s): I25.10 - ATHSCL HEART DISEASE OF [place] CORONARY ARTERY W/O ANG PCTRS Status: Chronic Qualifiers: Coronary Disease-Associated Artery/Lesion type: [place] artery [place] vs. transplanted heart: [place] heart Associated angina: without angina Qualified Code(s): I25.10 - Atherosclerotic heart disease of [place] coronary artery without angina pectoris (5) DM2 (diabetes mellitus, type 2) Status: Chronic Qualifiers: Diabetes mellitus halfway insulin use: without local intermodal truck driver use Diabetes mellitus complication status: with circulatory complication Diabetes mellitus complication detail: with other circulatory complications Qualified Code(s): E11.59 - Type 2 diabetes mellitus with other circulatory complications (6) ESRD (end stage renal disease) on dialysis Code(s): N18.6 - END STAGE RENAL DISEASE; Z99.2 - DEPENDENCE ON RENAL DIALYSIS Status: Chronic (7) Bradycardia Code(s): R00.1 - BRADYCARDIA, UNSPECIFIED Status: Resolved - Plan Plan: Enterocutaneous Fistula - Will keep NPO with TPN & continue somatastatin & loperamide per recs of general surgery to be continued as outpatient to promote fistula healing. Pt opting to use [facility] for TPN upon discharge. - Wound care consulted, currently with wound vac in place; will require wound care services through . Output of 200cc overnight but had a recurrent leak this AM. - Hickmann placed on 01/22 - General surgery on board, appreciate recs. Post-Op Wound Infection s/p surgical debridement - Likely 2/2 Enterocutaneous Fistula - Dr. Bonilla with general surgery consulted, appreciate recs - Blood cultures negative - Wound care consulted & wound vac in place - See plan as above ESRD on HD -Pt gets dialysis MWF and had recent revision of LUE fistula -Dr. Madden with nephrology has been consulted, appreciate recs -Will continue Dialysis on MWF HTN -Pt previously on clonidine and carvedilol. -Had restarted clonidine at lower dose, however pt did not tolerate this and BP' s dropped into the 90s/60s. -Will continue to monitor & hold all BP home meds and treat only if SBP is >[address] Madden. Anemia of CKD -Pt Hgb stable - Will continue Procrit weekly -Monitor DM2 - Pt denies needing any medication for a few years. - BG was consistently above 200 yesterday. Will touch base w/ dieticians today to get insulin added back to TPN as improved glycemic control will be crucial to his fistula wound healing. - Will consult dieticians to possibly add insulin back to his TPN today as his BG levels were consistently >200 yesterday since taking insulin out of it. S/p 15u Lantus last night, no change in morning sugar. - Will continue accuchecks ACHS & mild SSI for now. CAD s/p 1 stent -Pt reports recent cath that was ok. s/p 1 stent several years ago - Will continue Aspirin & Plavix H/O tobacco abuse -Pt is a former smoker with remote hx. -Encouraged continued cessation Seizure-like activity, resolved -Patient had witnessed tonic-clonic seizure in the ED on admission that lasted 2 minutes. -Given Keppra x1 dose, Neuro recs against continuation -EEG showed no seizure-like activity -Neuro following -Will continue seizure precautions Severe bradycardia, resolved -pt had episode of bradycardia to the 20's after the seizure. No further episodes since then. -EKG prior to this episode showed rate 75 with RBBB. Trops WNL -Pt has h/o CAD s/p 1 stent & Echo this admission showed an EF of 45-50% -Consulted Dr. Liang with cardiology, appreciate recs. -Pt has external event recorder on per cardiology. May need outpatient placement of pacer per EP -Will continue to hold all BB Heart Block, resolved -Currently in NSR -EP recommended consideration of pacemaker placement after pt's wound heals -Pt has external event recorder in place per cards Fluid Overload, resolved -Echo showed EF 45-50%, BNP elevated >2000 -Likely 2/2 missed dialysis session -Consulted Dr. Madden with nephrology, appreciate recs. Will continue normal MWF HD schedule. Dispo: CM on board for assistance with placement at a facility where he can receive wound care and TPN vs home health. Patient preference of HH through previous HH provider and TPN from [place]. Patient stable for d/c. Anticipate d/c depending on recs from general surgery regarding wound care.
[2018-01-26] MEDS: Insulin Regular 300 UNITS/3 ML VIAL SC PRN ×2 (06:36→14:09)
[2018-01-26] MEDS: Octreotide Acetate 100 MCG/ML VIAL SC SCH ×3 (06:36→22:58)
[2018-01-26 07:21] LABS: ALT (SGPT) 26 U/L (8-55); AST (SGOT) 44 U/L (5-34); Albumin 2.9 g/dL (3.4-4.8); Alkaline Phosphatase 91 U/L (40-150); Anion Gap 19 mmol/L (10-20); BUN (Urea Nitrogen) 105 mg/dL (8.4-25.7); Bilirubin, Total 0.4 mg/dL (0.2-1.2); Calc. Creatinine Clearance 17 mL/min (70-130); Calcium 8.9 mg/dL (7.8-10.44); Carbon Dioxide 20 mmol/L (23-31); Chloride 92 mmol/L (98-107); Estimated GFR-MDRD 7; Glucose 209 mg/dL (80-115); Protein, Total 7.9 g/dL (5.8-8.1); Sodium 126 mmol/L (136-145)
[2018-01-26 07:22] LABS: #Eosinphils 0.4 thou/uL (0.0-0.7); #Lymphocytes 1.2 thou/uL (1.20-3.40); #Monocytes 1.1 thou/uL (0.11-0.59); #Neutrophils 4.8 thou/uL (1.40-6.50); %Basophils 0.5 % (0.0-1.0); %Eosinophils 5.4 % (0.0-10.0); %Lymphocytes 16.2 % (21.0-51.0); %Monocytes 14.1 % (0.0-10.0); %Neutrophils 63.9 % (42.0-75.0); Hemoglobin 8.6 g/dL (14.0-18.0); Mean Corpuscular HGB CONC 32.3 g/dL (32.0-36.0); Mean Corpuscular Hemoglobin 31.2 pg (27.0-31.0); Mean Corpuscular Volume 96.5 fL (78.0-98.0); Mean Platelet Volume 8.1 fL (7.4-10.4); Platelet Count 294 thou/uL (130-400); RBC Distribution Width 13.7 % (11.5-14.5); Red Blood Cell (RBC) Count 2.77 mill/uL (4.70-6.10); White Blood Cell (WBC) Count 7.6 thou/uL (4.8-10.8)
[2018-01-26] MEDS ORDERED: Heparin 10,000 UNITS/ 10 ML VIAL ONE (09:00)
--- NOTE | 2018-01-26 09:06 | PRG ---
DATE OF SERVICE: 01/26/2018 SUBJECTIVE: Mr. Linares is a 67-year-old male with end-stage renal disease and admitted for e nterocutaneous abdominal fistula. He is currently on wound VAC. He is on n.p.o. and currently on TP N support. We are currently dialyzing him - his maintenance dialysis is on Friday, Friday, and . I am at the dialysis unit now. I have noted his blood pressure is about 80-90 systolic. Cifuentes hailee, he is asymptomatic. My plan is to minimize on fluid removal. Fluid challenge with dialysis as needed. No complaints of chest pain or shortness of breath. PHYSICAL EXAMINATION: VITAL SIGNS: Blood pressure 105/57, heart rate 73, respiratory rate 18, temperature 97.2, pulse ox i s 96%. GENERAL: Noted to be awake, alert, comfortable, not in distress. SKIN: Adequate turgor. HEENT: He has slightly pale conjunctivae, anicteric sclerae. NECK: No neck mass, no carotid bruits, no JVD. CHEST: No deformities. LUNGS: Clear breath sounds. HEART: Normal sinus rhythm. No murmur, no gallops, no rubs. ABDOMEN: Globular, soft, nontender, no masses. Positive for wound VAC. EXTREMITIES: No edema, no deformities. MEDICATIONS: Of 01/26/2018 was reviewed. LABORATORY DATA: Of 01/26/2018, white count 7.6, hemoglobin 8.6, hematocrit 26.7. Sodium 126, potas sium 5, chloride 92, carbon dioxide 20, BUN is 105, creatinine 7.69, glucose 209, calcium 8.9, AST 44 , ALT 26, albumin 2.9. ASSESSMENT AND PLAN: 1. End-stage renal disease, stable. We will continue current hemodialysis regimen. Minimal fluid r emoval. Fluid challenge with dialysis as needed depending what the blood pressure is. 2. Anemia. We will increase Epogen to 10,000 units subcutaneously every week. 3. Abdominal enterocutaneous fistula - supportive care on wound VAC. Currently, n.p.o. now and on T PN support. Agree with current management.
[2018-01-26] MEDS ORDERED: Epoetin (ESRD) 20,000 UNITS/ML SC SCH (10:00)
[2018-01-26] MEDS: Loperamide HCl 2 MG CAP PO SCH ×4 (12:34→22:57)
[2018-01-26] MEDS: Fluticasone Propionate Nasal Spray 16 gm Bottle NASAL SCH (13:14)
[2018-01-26] MEDS: Cinacalcet HCl 30 MG TAB PO SCH (13:14)
[2018-01-26] MEDS ORDERED: Insulin Regular 100 units/100 ml in NS IVPB SCH (15:00)
[2018-01-26] MEDS ORDERED: FAT EMULSION IV SCH ×2 (22:00)
[2018-01-26] MEDS ORDERED: SODIUM CHLORIDE IV SCH ×2 (22:00)
[2018-01-26] MEDS ORDERED: [UNRECOGNIZED DRUG - OTHER] IV SCH ×2 (22:00)
[2018-01-26] MEDS ORDERED: POTASSIUM PHOSPHATE IV SCH ×2 (22:00)
[2018-01-26] MEDS: Pravastatin Sodium 20 MG TAB PO SCH (22:58)
[2018-01-26] MEDS: Ubidecarenone 50 MG CAP PO SCH (22:58)
[2018-01-26] MEDS: Clopidogrel Bisulfate 75 MG TAB PO SCH (22:58)
[2018-01-26] MEDS: Fish Oil 1,000 MG CAP PO SCH (22:58)
[2018-01-26] MEDS: Aspirin 81 mg Enteric Coated Tablet PO SCH (22:58)
[2018-01-26] MEDS: Vit A,C & E/Lutein/Minerals Tablet PO SCH (22:58)
[2018-01-27] MEDS: Insulin Regular 300 UNITS/3 ML VIAL SC PRN ×2 (01:13→06:15)
[2018-01-27 06:14] LABS: ALT (SGPT) 35 U/L (8-55); AST (SGOT) 57 U/L (5-34); Albumin 2.8 g/dL (3.4-4.8); Alkaline Phosphatase 105 U/L (40-150); Anion Gap 13 mmol/L (10-20); BUN (Urea Nitrogen) 54 mg/dL (8.4-25.7); Bilirubin, Total 0.4 mg/dL (0.2-1.2); Calc. Creatinine Clearance 27 mL/min (70-130); Calcium 8.7 mg/dL (7.8-10.44); Carbon Dioxide 27 mmol/L (23-31); Chloride 95 mmol/L (98-107); Estimated GFR-MDRD 12; Glucose 142 mg/dL (80-115); Potassium 4.2 mmol/L (3.5-5.1); Protein, Total 7.8 g/dL (5.8-8.1); Sodium 131 mmol/L (136-145)
[2018-01-27] MEDS: Octreotide Acetate 100 MCG/ML VIAL SC SCH ×2 (06:15→13:59)
[2018-01-27 06:38] LABS: Hemoglobin 8.4 g/dL (14.0-18.0); Mean Corpuscular HGB CONC 30.7 g/dL (32.0-36.0); Mean Corpuscular Hemoglobin 30.4 pg (27.0-31.0); Mean Corpuscular Volume 98.8 fL (78.0-98.0); Mean Platelet Volume 7.9 fL (7.4-10.4); Platelet Count 274 thou/uL (130-400); RBC Distribution Width 13.8 % (11.5-14.5); Red Blood Cell (RBC) Count 2.75 mill/uL (4.70-6.10); White Blood Cell (WBC) Count 6.6 thou/uL (4.8-10.8)
[2018-01-27 06:42] LABS: Band 6 % (5-11); Eosinophils 4 % (0-10); Hypochromia SLIGHT = 6-15 cells (100X) (0-5/hpf); Lymphocytes 13 % (21-51); MDiff Complete? YES; Monocytes 12 % (0-10); Neutrophil 65 % (42-75); PLT Morphology Comment Appears Adequate; Polychromasia SLIGHT = 2-3 cells (100X) (0-2/hpf)
[2018-01-27] MEDS: Fluticasone Propionate Nasal Spray 16 gm Bottle NASAL SCH ×2 (09:30)
[2018-01-27] MEDS: Loperamide HCl 2 MG CAP PO SCH ×2 (09:31→13:59)
--- NOTE | 2018-01-27 09:45 | PRG ---
DATE OF SERVICE: 01/27/2018 SUBJECTIVE: Mr. Linares is a 67-year-old male with ESRD on maintenance hemodialysis. He was admitted due to his enterocutaneous fistula. He is currently placed on n.p.o. Currently on TPN supp ort. He has been relatively running low on the blood pressure, for that reason, all BP meds have bee n discontinued. Minimal fluid removal was done with the dialysis yesterday. There are no new complaints today, no chest pain or shortness of breath. PHYSICAL EXAMINATION: VITAL SIGNS: Blood pressure 96/57, heart rate 57, respiratory rate 15, temperature 98.2, pulse ox 97 %. GENERAL: Awake, supine, comfortable, obese. SKIN: Adequate turgor. HEENT: Slightly pale conjunctivae, anicteric sclerae. NECK: No neck mass, no carotid bruits. No JVD. CHEST: No deformities. LUNGS: Clear breath sounds, no wheezing, no crackles. HEART: Normal sinus rhythm. No murmur, no gallops or rubs. ABDOMEN: Globular, soft, nontender, no masses. Positive for enterocutaneous fistula, positive for w ound VAC. EXTREMITIES: No edema, no deformities. MEDICATIONS: 01/27/2018 - Reviewed. LABORATORY: 01/27/2018 - White count 6.6, hemoglobin 8.4, sodium 131, potassium 4.2, chloride 95, ca rbon dioxide 27, BUN 54, creatinine 4.74, glucose 142, calcium 8.7, AST 57, ALT 35, albumin 2.8. ASSESSMENT AND PLAN: 1. End-stage renal disease, stable. We will continue current Friday, Friday, Friday hemodialysis . Minimal fluid removal with the dialysis. P.r.n. normal saline infusion depending on the blood pre ssure during dialysis. 2. Anemia, recently Epogen has been increased to 10,000 units subcutaneously every week. 3. Abdominal enterocutaneous fistula - supportive care. Surgery is evaluating this patient. The wo und is still open and seems to be granulating well. I agree with current management.
--- NOTE | 2018-01-27 12:01 | PRG ---
DATE OF SERVICE: 01/27/2018 SUBJECTIVE: Mr. Linares is awake and alert this morning. He is even cheerful, in no distress. OBJECTIVE: VITAL SIGNS: Stable, although he is slightly hypotensive with a blood pressure of 96/60 with a pulse rate of 80 and regular. Respirations 15 and he is afebrile. LABORATORY DATA: His hemoglobin is 8.4, hematocrit 27.2. Chemistries, sodium is 131, potassium 4.2, chloride 95, bicarbonate 27, BUN 54, creatinine 4.74. We are also awaiting placement for this gentleman as his medical issues are stable.
--- NOTE | 2018-01-27 12:07 | PDOC.FM ---
- Subjective Subjective: Patient is doing well this morning. Does report some leakage from his wound vac but considerably less than previous times. He is scheduled to have wound vac dressing change today. Overnight blood sugars continued to be elevated but are at goal this am after addition of insulin back into TPN. Patient has no complaints today. - Objective MAR Reviewed: Yes Vital Signs & Weight: Vital Signs (12 hours) Temp Pulse Resp BP Pulse Ox 01/27/18 11:49 98.2 F 60 16 108/62 98 01/27/18 08:40 97 01/27/18 08:00 98.2 F 57 L 15 96/57 L 97 01/27/18 04:00 98.7 F 59 L 19 96/57 L 96 Weight Admit Weight 129.228 kg Weight 123.831 kg I&O: 01/26/18 01/27/18 01/28/18 06:59 06:59 06:59 Intake Total 936 1982 Output Total 250 405 Balance 686 1577 Result Diagrams: 01/27/18 05:42 01/27/18 05:42 Phys Exam - Physical Examination Constitutional: NAD obese HEENT: moist MMs Respiratory: no wheezing, no rales, clear to auscultation bilateral Cardiovascular: RRR Gastrointestinal: soft, non-tender wound vac in place with brown serous drainage from vac Musculoskeletal: no edema Neurological: moves all 4 limbs Psychiatric: normal affect, A&O x 3 Dx/Plan (1) Postoperative wound infection Code(s): T81.49XA - INFECTION FOLLOWING A PROCEDURE, OTHER SURGICAL SITE, INIT Status: Resolved (2) Enterocutaneous fistula Code(s): K63.2 - FISTULA OF INTESTINE Status: Acute (3) Anemia Code(s): D64.9 - ANEMIA, UNSPECIFIED Status: Chronic Qualifiers: Anemia type: due to chronic kidney disease Chronic kidney disease stage: on chronic dialysis Qualified Code(s): N18.6 - End stage renal disease; D63.1 - Anemia in chronic kidney disease; Z99.2 - Dependence on renal dialysis (4) CAD (coronary artery disease) Code(s): I25.10 - ATHSCL HEART DISEASE OF [place] CORONARY ARTERY W/O ANG PCTRS Status: Chronic Qualifiers: Coronary Disease-Associated Artery/Lesion type: [place] artery [place] vs. transplanted heart: [place] heart Associated angina: without angina Qualified Code(s): I25.10 - Atherosclerotic heart disease of [place] coronary artery without angina pectoris (5) DM2 (diabetes mellitus, type 2) Status: Chronic Qualifiers: Diabetes mellitus computer terminal operator insulin use: without detention use Diabetes mellitus complication status: with circulatory complication Diabetes mellitus complication detail: with other circulatory complications Qualified Code(s): E11.59 - Type 2 diabetes mellitus with other circulatory complications (6) ESRD (end stage renal disease) on dialysis Code(s): N18.6 - END STAGE RENAL DISEASE; Z99.2 - DEPENDENCE ON RENAL DIALYSIS Status: Chronic (7) Bradycardia Code(s): R00.1 - BRADYCARDIA, UNSPECIFIED Status: Resolved - Plan Plan: Enterocutaneous Fistula - Will keep NPO with TPN & continue somatastatin & loperamide per recs of general surgery to be continued as outpatient to promote fistula healing. Pt opting to use [facility] for TPN upon discharge. - Wound care consulted, currently with wound vac in place; will require wound care services through . Output of 200cc overnight but had a recurrent leak this AM. - Hickmann placed on 01/22 - General surgery on board, appreciate recs. Post-Op Wound Infection s/p surgical debridement - Likely 2/2 Enterocutaneous Fistula - Dr. Bonilla with general surgery consulted, appreciate recs - Blood cultures negative - Wound care consulted & wound vac in place - See plan as above ESRD on HD -Pt gets dialysis MWF and had recent revision of LUE fistula -Dr. Madden with nephrology has been consulted, appreciate recs -Will continue Dialysis on MWF HTN -Pt previously on clonidine and carvedilol. -Had restarted clonidine at lower dose, however pt did not tolerate this and BP' s dropped into the 90s/60s. -Will continue to monitor & hold all BP home meds and treat only if SBP is >[address] Madden. Anemia of CKD -Pt Hgb stable - Will continue Procrit weekly -Monitor DM2 - Pt denies needing any medication for a few years. - BG was consistently above 200 yesterday. Will touch base w/ dieticians today to get insulin added back to TPN as improved glycemic control will be crucial to his fistula wound healing. - Better controlled with insulin in TPN. - Will continue accuchecks going home. CAD s/p 1 stent -Pt reports recent cath that was ok. s/p 1 stent several years ago - Will continue Aspirin & Plavix H/O tobacco abuse -Pt is a former smoker with remote hx. -Encouraged continued cessation Seizure-like activity, resolved -Patient had witnessed tonic-clonic seizure in the ED on admission that lasted 2 minutes. -Given Keppra x1 dose, Neuro recs against continuation -EEG showed no seizure-like activity -Neuro following -Will continue seizure precautions Severe bradycardia, resolved -pt had episode of bradycardia to the 20's after the seizure. No further episodes since then. -EKG prior to this episode showed rate 75 with RBBB. Trops WNL -Pt has h/o CAD s/p 1 stent & Echo this admission showed an EF of 45-50% -Consulted Dr. Liang with cardiology, appreciate recs. -Pt has external event recorder on per cardiology. May need outpatient placement of pacer per EP -Will continue to hold all BB Heart Block, resolved -Currently in NSR -EP recommended consideration of pacemaker placement after pt's wound heals -Pt has external event recorder in place per cards Fluid Overload, resolved -Echo showed EF 45-50%, BNP elevated >2000 -Likely 2/2 missed dialysis session -Consulted Dr. Madden with nephrology, appreciate recs. Will continue normal MWF HD schedule. Dispo: HH with TPN ordered. Discharge pending wound dressing change today, otherwise has everything set up. Will have close f/u.
[2018-01-27] MEDS: Cinacalcet HCl 30 MG TAB PO SCH (13:58)
[2018-01-27 15:30] VITALS: BP 103/55; TEMP 98.1
== END 2018-01-27 16:55 | disposition home health service (06) | DRG 862 ==
LOC: ERS 05:31 → IMCU/EMU 11:36 → 2NO 01-14 20:19 → SURG A 01-19 18:01
PROVIDERS: ADMIT Student in an Organized Health Care Education/Training Program; ATTEND Student in an Organized Health Care Education/Training Program
PROC: 5A1D70Z Performance of Urinary Filtration, Intermittent, Less than 6 Hours Per Day (ICD-10-PCS; principal; 2018-01-12)
PROC: 3E0336Z Introduction of Nutritional Substance into Peripheral Vein, Percutaneous Approach (ICD-10-PCS; 2018-01-15)
PROC: 02HV33Z Insertion of Infusion Device into Superior Vena Cava, Percutaneous Approach (ICD-10-PCS; 2018-01-23)
DX: T81.49XA Infection following a procedure, other surgical site, initial encounter (principal); N18.6 End stage renal disease; K63.2 Fistula of intestine; E87.2 Acidosis; Z68.41 Body mass index [BMI] 40.0-44.9, adult; I12.0 Hypertensive chronic kidney disease with stage 5 chronic kidney disease or end stage renal disease; G40.909 Epilepsy, unspecified, not intractable, without status epilepticus; R00.1 Bradycardia, unspecified; E87.5 Hyperkalemia; E11.22 Type 2 diabetes mellitus with diabetic chronic kidney disease; Z99.2 Dependence on renal dialysis; K66.0 Peritoneal adhesions (postprocedural) (postinfection); D63.1 Anemia in chronic kidney disease; R74.8 Abnormal levels of other serum enzymes; E83.39 Other disorders of phosphorus metabolism; I25.10 Atherosclerotic heart disease of native coronary artery without angina pectoris; E66.01 Morbid (severe) obesity due to excess calories; E11.40 Type 2 diabetes mellitus with diabetic neuropathy, unspecified; I44.0 Atrioventricular block, first degree; I45.10 Unspecified right bundle-branch block; Z95.5 Presence of coronary angioplasty implant and graft; Z87.891 Personal history of nicotine dependence; Z79.02 Long term (current) use of antithrombotics/antiplatelets; Z79.82 Long term (current) use of aspirin; Z91.15 Patient's noncompliance with renal dialysis; Z89.422 Acquired absence of other left toe(s); Z89.421 Acquired absence of other right toe(s); Y83.8 Other surgical procedures as the cause of abnormal reaction of the patient, or of later complication, without mention of misadventure at the time of the procedure
CPT/HCPCS: 36415; 36416; 36556; 70450; 71045; 74177; 80048; 80053; 80061; 82553; 82805; 83036; 83605; 83735; 83880; 84100; 84134; 84443; 84484; 85025; 85610; 85730; 87040; 87340; 90935; 93005; 93010; 93306; 94660; 95816; 95819; 96365; 96375; A4217; C1751; C1769; G0257; G8978-GP-CJ; G8979-GP-CI; G8979-GP-CJ; G8980-GP-CJ; J1642; J1644; J1815; J1953; J2001; J2060; J2250; J2354; J2405; J2704; J2997; J3010; J3475; J3480; J7050; Q4081; S0028

== ENCOUNTER 2018-02-13 19:41 | Emergency (ER) | payer MEDICARE, BC, OTHER ==
[2018-02-13 20:23] LABS: #Eosinphils 0.1 thou/uL (0.0-0.7); #Lymphocytes 0.9 thou/uL (1.20-3.40); #Monocytes 0.8 thou/uL (0.11-0.59); #Neutrophils 5.8 thou/uL (1.40-6.50); %Basophils 0.2 % (0.0-1.0); %Lymphocytes 11.2 % (21.0-51.0); %Neutrophils 76.6 % (42.0-75.0); Mean Corpuscular HGB CONC 30.5 g/dL (32.0-36.0); Mean Corpuscular Volume 95.2 fL (78.0-98.0); Mean Platelet Volume 8.2 fL (7.4-10.4); Platelet Count 307 thou/uL (130-400); RBC Distribution Width 13.6 % (11.5-14.5); Red Blood Cell (RBC) Count 2.77 mill/uL (4.70-6.10); White Blood Cell (WBC) Count 7.5 thou/uL (4.8-10.8)
[2018-02-13 20:33] LABS: INR-International Normal Ratio 1.7; PTT 41.7 SEC (22.9-36.1); Prothrombin Time 20.3 SEC (12.0-14.7)
[2018-02-13 20:43] LABS: ALT (SGPT) 35 U/L (8-55); AST (SGOT) 31 U/L (5-34); Albumin 2.8 g/dL (3.4-4.8); Alkaline Phosphatase 76 U/L (40-150); Anion Gap 16 mmol/L (10-20); BUN (Urea Nitrogen) 37 mg/dL (8.4-25.7); Bilirubin, Total 0.5 mg/dL (0.2-1.2); Calc. Creatinine Clearance 0 mL/min (70-130); Calcium 9.1 mg/dL (7.8-10.44); Carbon Dioxide 31 mmol/L (23-31); Chloride 91 mmol/L (98-107); Estimated GFR-MDRD 22; Globulin 5.6 g/dL (2.4-3.5); Glucose 137 mg/dL (80-115); Potassium 3.7 mmol/L (3.5-5.1); Protein, Total 8.4 g/dL (5.8-8.1); Sodium 134 mmol/L (136-145)
[2018-02-13 20:46] LABS: CKMB 1.1 ng/mL (0-6.6); Troponin I 0.016 ng/mL (< 0.028)
== END 2018-02-13 22:36 | disposition home or self-care (01) ==
LOC: ERS 19:41
DX: R53.1 Weakness (principal); E11.22 Type 2 diabetes mellitus with diabetic chronic kidney disease; I12.0 Hypertensive chronic kidney disease with stage 5 chronic kidney disease or end stage renal disease; N18.6 End stage renal disease; Z79.899 Other long term (current) drug therapy
CPT/HCPCS: 36415; 80053; 82274; 82553; 84484; 85025; 85610; 86850; 86900; 86901; 93005; 96360

== ENCOUNTER 2018-04-03 15:38 | Emergency (ER) | payer MEDICARE, BC, MEDICAID ==
--- NOTE | 2018-04-03 17:30 | RAD ---
FRONTAL AND LATERAL IMAGING OF THE CHEST 04/03/18 COMPARISON: 05/29/13 and 01/22/18. HISTORY: Cough. FINDINGS: There is a left sided vascular catheter, distal tip overlying the region of the cavoatrial junction. Cardiac silhouette is enlarged and unchanged. Mild stable interstitial prominence in the perihilar re gions. No pneumothorax, pleural fluid, lobar consolidation or alveolar edema. Stable right shoulder a rthroplasty. IMPRESSION: No focal consolidation or alveolar edema. Nonspecific stable perihilar interstitial prominence. POS: TOYIN
== END 2018-04-03 17:24 | disposition home or self-care (01) ==
LOC: ERS 15:38
DX: J20.9 Acute bronchitis, unspecified (principal); I25.10 Atherosclerotic heart disease of native coronary artery without angina pectoris; E11.9 Type 2 diabetes mellitus without complications; I10 Essential (primary) hypertension; Z99.2 Dependence on renal dialysis; Z87.891 Personal history of nicotine dependence; Z79.899 Other long term (current) drug therapy
CPT/HCPCS: 71046

== ENCOUNTER 2020-05-18 15:08 | Emergency (ER) | payer MEDICARE, BC, OTHER ==
[2020-05-18 16:29] LABS: #Eosinphils 0.2 thou/uL (0.0-0.7); #Monocytes 0.7 thou/uL (0.11-0.59); #Neutrophils 3.7 thou/uL (1.40-6.50); %Basophils 0.5 % (0.0-1.0); %Eosinophils 2.6 % (0.0-10.0); %Lymphocytes 29.6 % (21.0-51.0); %Monocytes 10.6 % (0.0-10.0); %Neutrophils 56.7 % (42.0-75.0); Hemoglobin 10.1 g/dL (14.0-18.0); Mean Corpuscular HGB CONC 30.9 g/dL (32.0-36.0); Mean Corpuscular Hemoglobin 32.4 pg (27.0-31.0); Mean Platelet Volume 7.6 fL (7.4-10.4); Platelet Count 216 thou/uL (130-400); RBC Distribution Width 15.7 % (11.5-14.5); Red Blood Cell (RBC) Count 3.11 mill/uL (4.70-6.10); White Blood Cell (WBC) Count 6.6 thou/uL (4.8-10.8)
--- NOTE | 2020-05-18 16:44 | RAD ---
Left hand 3 views HISTORY: Hand wound. Pain and swelling. FINDINGS: Scattered mild osteoarthritic changes. Hyperflexion at the distal interphalangeal joint of the ring finger may represent an old ligamentous injury. Remodeling of the fifth metacarpal shaft from old healed fracture. No soft tissue gas is apparent. Immediately medial to the distal interphalangeal joint of the little finger and 0.6 cm long focus of dystrophic calcification which may be related to an old injury. No aggressive osseous destruction. Prominent calcification throughout the arterial structures. IMPRESSION : No aggressive osseous destruction or other acute abnormalities are demonstrated.
[2020-05-18 16:49] LABS: ALT (SGPT) 13 U/L (8-55); AST (SGOT) 25 U/L (5-34); Albumin 3.4 g/dL (3.4-4.8); Alkaline Phosphatase 127 U/L (40-110); Anion Gap 16 mmol/L (10-20); BUN (Urea Nitrogen) 17 mg/dL (8.4-25.7); Bilirubin, Total 0.6 mg/dL (0.2-1.2); Calc. Creatinine Clearance 0 mL/min (70-130); Calcium 9.6 mg/dL (7.8-10.44); Carbon Dioxide 29 mmol/L (23-31); Chloride 96 mmol/L (98-107); Globulin 5.4 g/dL (2.4-3.5); Glucose 139 mg/dL (80-115); Potassium 3.9 mmol/L (3.5-5.1); Protein, Total 8.8 g/dL (5.8-8.1); Sodium 137 mmol/L (136-145)
[2020-05-18 17:05] LABS: Anisocytosis SLIGHT = 6-15 cells (100X) (0-5/hpf); MDiff Complete? YES; Macrocytosis SLIGHT = 6-15 cells (100X) (0-5/hpf); Platelet Morphology Comment Appears Adequate
--- NOTE | 2020-05-18 17:16 | ULT ---
EXAM: US Arterial Doppler Upper Ext DATE: 05/18/2020 4:42 PM INDICATION: Concern for occlusion of left upper extremity AV fistula COMPARISON: None. FINDING: Doppler arterial evaluation with grayscale and color Doppler imaging was performed of the a rterial and and select venous segments of the left upper extremity. There is appropriate antegrade waveform within the left common carotid artery. There is a low resista nce antegrade waveform within the left subclavian artery and left axillary artery. There is appropriate compression of the left brachial veins with low resistance antegrade waveforms within the left brachial artery. There is appropriate compression of the left basilic vein. At the level of the arteriovenous shunt, there is appropriate directional and continuous flow of blood within the eliseo nt and the cephalic vein outflow. There is appropriate compression of the left radial vein. There is a monophasic, antegrade waveform seen within the left radial artery. There is appropriate compress ion of the left ulnar vein. There is a monophasic antegrade waveform within the left ulnar artery. IMPRESSION: 1. Appropriate flow seen within the left subclavian artery through the level of the left brachial art [place] with continuous, appropriate directional flow seen within the arteriovenous shunt. 2. Slightly diminished, monophasic antegrade waveforms within the left radial and left ulnar artery. Component of arterial steal from the upstream left upper extremity shunt is of concern.
[2020-05-18] MEDS ORDERED: Acetaminophen 500 MG TAB ONE ×2 (19:37→19:40)
== END 2020-05-18 19:45 | disposition home or self-care (01) ==
LOC: ERS 15:08
DX: T82.898A Other specified complication of vascular prosthetic devices, implants and grafts, initial encounter (principal); L03.114 Cellulitis of left upper limb; E11.9 Type 2 diabetes mellitus without complications; I10 Essential (primary) hypertension; Z87.891 Personal history of nicotine dependence; Z79.899 Other long term (current) drug therapy
CPT/HCPCS: 36415; 80053; 83605; 85025; 93923; 94760

== ENCOUNTER 2020-06-20 19:31 | Inpatient (IN) | payer MEDICARE, BC, MEDICAID ==
[2020-06-20 20:35] LABS: #Basophils 0.1 thou/uL (0.0-0.2); #Eosinphils 0.1 thou/uL (0.0-0.7); #Lymphocytes 1.3 thou/uL (1.20-3.40); #Monocytes 1.2 thou/uL (0.11-0.59); #Neutrophils 7.8 thou/uL (1.40-6.50); %Basophils 0.6 % (0.0-1.0); %Eosinophils 0.7 % (0.0-10.0); %Lymphocytes 12.5 % (21.0-51.0); %Monocytes 11.8 % (0.0-10.0); %Neutrophils 74.4 % (42.0-75.0); Hemoglobin 8.5 g/dL (14.0-18.0); Mean Corpuscular HGB CONC 28.3 g/dL (32.0-36.0); Mean Corpuscular Hemoglobin 28.6 pg (27.0-31.0); Mean Platelet Volume 8.7 fL (7.4-10.4); Platelet Count 182 thou/uL (130-400); RBC Distribution Width 13.9 % (11.5-14.5); Red Blood Cell (RBC) Count 2.95 mill/uL (4.70-6.10); White Blood Cell (WBC) Count 10.5 thou/uL (4.8-10.8)
[2020-06-20 20:54] LABS: RBC Morphology Normal
[2020-06-20 20:59] LABS: ALT (SGPT) 11 U/L (8-55); AST (SGOT) 26 U/L (5-34); Albumin 3.3 g/dL (3.4-4.8); Alkaline Phosphatase 98 U/L (40-110); Anion Gap 15 mmol/L (10-20); BUN (Urea Nitrogen) 29 mg/dL (8.4-25.7); Bilirubin, Total 0.6 mg/dL (0.2-1.2); Calc. Creatinine Clearance 0 mL/min (70-130); Calcium 9.1 mg/dL (7.8-10.44); Carbon Dioxide 29 mmol/L (23-31); Chloride 93 mmol/L (98-107); Glucose 126 mg/dL (80-115); Potassium 3.8 mmol/L (3.5-5.1); Protein, Total 8.3 g/dL (5.8-8.1); Sodium 133 mmol/L (136-145)
[2020-06-20 21:20] LABS: CKMB 1.2 ng/mL (0-6.6)
[2020-06-20] MEDS ORDERED: Calcium Carbonate 500 MG ChewTAB PO PRN (22:50)
[2020-06-20] MEDS ORDERED: Acetaminophen 325 MG TAB PO PRN (22:50)
[2020-06-20 23:16] LABS: Magnesium 1.9 mg/dL (1.6-2.6); Phosphorus 3.4 mg/dL (2.3-4.7)
[2020-06-21] MEDS ORDERED: Dextrose 5% in Water 1,000 ML IV PRN (00:39)
[2020-06-21] MEDS ORDERED: HumaLOG 300 UNITS/3 ML VIAL SC PRN (00:39)
[2020-06-21] MEDS ORDERED: Dextrose 50% Abboject 50 ML SYRINGE SLOW IVP PRN (00:39)
[2020-06-21] MEDS ORDERED: Piperacillin/Tazobactam 4.5 GM in Sodium Chloride 0.9% 100 ML IVPB SCH (01:30)
[2020-06-21 02:39] VITALS: BMI 35.8
[2020-06-21] MEDS: Piperacillin/Tazobactam 2.25 GM in Sodium Chloride 0.9% 100 ML IVPB SCH ×2 (02:53→18:46)
[2020-06-21 02:57] LABS: #Eosinphils 0.1 thou/uL (0.0-0.7); #Lymphocytes 1.1 thou/uL (1.20-3.40); #Neutrophils 6.7 thou/uL (1.40-6.50); %Basophils 0.3 % (0.0-1.0); %Eosinophils 1.1 % (0.0-10.0); %Lymphocytes 12.5 % (21.0-51.0); %Monocytes 11.4 % (0.0-10.0); %Neutrophils 74.6 % (42.0-75.0); Hemoglobin 9.2 g/dL (14.0-18.0); Mean Corpuscular HGB CONC 31.8 g/dL (32.0-36.0); Mean Corpuscular Hemoglobin 32.1 pg (27.0-31.0); Platelet Count 170 thou/uL (130-400); RBC Distribution Width 14.1 % (11.5-14.5); Red Blood Cell (RBC) Count 2.86 mill/uL (4.70-6.10)
[2020-06-21 03:16] LABS: Anion Gap 17 mmol/L (10-20); BUN (Urea Nitrogen) 30 mg/dL (8.4-25.7); Calc. Creatinine Clearance 24 mL/min (70-130); Calcium 9.4 mg/dL (7.8-10.44); Carbon Dioxide 26 mmol/L (23-31); Chloride 94 mmol/L (98-107); Glucose 126 mg/dL (80-115); Potassium 3.5 mmol/L (3.5-5.1); Sodium 133 mmol/L (136-145); Troponin I 0.042 ng/mL (< 0.028)
[2020-06-21] MEDS: Clindamycin 150 MG CAP PO SCH ×2 (08:22→18:46)
[2020-06-21] MEDS: Fluticasone Propionate Nasal Spray 16 gm Bottle NASAL SCH (08:22)
[2020-06-21] MEDS: Sevelamer Carbonate 800 MG TAB PO SCH ×4 (08:22→21:50)
[2020-06-21] MEDS: Heparin 5,000 UNITS/ML VIAL SC SCH ×3 (08:23→21:51)
[2020-06-21] MEDS: Docusate 100 MG CAP PO SCH ×2 (08:23→21:49)
[2020-06-21 09:02] LABS: HBSAg Index 0.24 S/CO (0-0.99); Hep B Surf Ag Non-Reactive S/CO (NonReactive)
[2020-06-21 09:03] LABS: SARS-CoV-2 PCR by NAA Not Detected (NotDetected)
[2020-06-21] MEDS ORDERED: Piperacillin/Tazobactam 1.125 GM, Admixture Fee 1 EACH in Sodium Chloride 0.9% 100 ML IVPB SCH (12:00)
[2020-06-21] MEDS ORDERED: Heparin 10,000 UNITS/ 10 ML VIAL ONE (14:21)
[2020-06-21] MEDS ORDERED: Clopidogrel Bisulfate 75 MG TAB PO SCH (21:00)
[2020-06-21] MEDS ORDERED: Aspirin 81 mg Enteric Coated Tablet PO SCH (21:00)
[2020-06-21] MEDS: Vit A,C & E/Lutein/Minerals Tablet PO SCH (21:49)
[2020-06-21] MEDS: Fish Oil 1,000 MG CAP PO SCH (21:50)
[2020-06-21] MEDS: Simvastatin 10 MG TAB PO SCH (21:51)
[2020-06-22] MEDS: Clindamycin 150 MG CAP PO SCH ×4 (01:32→21:26)
[2020-06-22] MEDS: Piperacillin/Tazobactam 2.25 GM in Sodium Chloride 0.9% 100 ML IVPB SCH ×2 (01:33→16:32)
[2020-06-22] MEDS: Fluticasone Propionate Nasal Spray 16 gm Bottle NASAL SCH ×3 (01:33→21:26)
[2020-06-22 04:56] LABS: #Eosinphils 0.1 thou/uL (0.0-0.7); #Lymphocytes 1.3 thou/uL (1.20-3.40); #Monocytes 0.9 thou/uL (0.11-0.59); %Basophils 0.3 % (0.0-1.0); %Eosinophils 1.6 % (0.0-10.0); %Lymphocytes 15.2 % (21.0-51.0); %Monocytes 11.1 % (0.0-10.0); %Neutrophils 71.8 % (42.0-75.0); Hemoglobin 9.8 g/dL (14.0-18.0); Mean Corpuscular HGB CONC 31.4 g/dL (32.0-36.0); Mean Corpuscular Hemoglobin 32.1 pg (27.0-31.0); Platelet Count 191 thou/uL (130-400); RBC Distribution Width 14.3 % (11.5-14.5); Red Blood Cell (RBC) Count 3.05 mill/uL (4.70-6.10); White Blood Cell (WBC) Count 8.3 thou/uL (4.8-10.8)
[2020-06-22 05:18] LABS: Anion Gap 16 mmol/L (10-20); BUN (Urea Nitrogen) 19 mg/dL (8.4-25.7); Calc. Creatinine Clearance 33 mL/min (70-130); Calcium 9.2 mg/dL (7.8-10.44); Carbon Dioxide 26 mmol/L (23-31); Chloride 97 mmol/L (98-107); Glucose 86 mg/dL (80-115); Potassium 3.8 mmol/L (3.5-5.1); Sodium 135 mmol/L (136-145)
[2020-06-22] MEDS ORDERED: Metoprolol Tartrate 25 MG TAB PO SCH ×2 (09:00→21:00)
[2020-06-22] MEDS: Sevelamer Carbonate 800 MG TAB PO SCH ×4 (11:20→21:24)
[2020-06-22] MEDS: Heparin 5,000 UNITS/ML VIAL SC SCH (11:23)
[2020-06-22] MEDS: Docusate 100 MG CAP PO SCH ×2 (11:23→23:41)
[2020-06-22] MEDS ORDERED: Iopamidol 370 76% 100 ML VIAL ONE (13:50)
[2020-06-22] MEDS ORDERED: Lactated Ringer's 500 ML IV SCH (14:30)
[2020-06-22] MEDS: Vit A,C & E/Lutein/Minerals Tablet PO SCH (21:24)
[2020-06-22] MEDS: Apixaban 5 MG TAB PO SCH (21:25)
[2020-06-22] MEDS: Fish Oil 1,000 MG CAP PO SCH (21:25)
[2020-06-22] MEDS: Simvastatin 10 MG TAB PO SCH (23:41)
[2020-06-23] MEDS: Piperacillin/Tazobactam 2.25 GM in Sodium Chloride 0.9% 100 ML IVPB SCH ×2 (02:02→16:08)
[2020-06-23 04:44] LABS: #Basophils 0.1 thou/uL (0.0-0.2); #Eosinphils 0.2 thou/uL (0.0-0.7); #Lymphocytes 1.4 thou/uL (1.20-3.40); #Monocytes 0.7 thou/uL (0.11-0.59); #Neutrophils 4.6 thou/uL (1.40-6.50); %Basophils 0.9 % (0.0-1.0); %Eosinophils 2.8 % (0.0-10.0); %Monocytes 10.1 % (0.0-10.0); %Neutrophils 66.2 % (42.0-75.0); Hemoglobin 10.1 g/dL (14.0-18.0); Mean Corpuscular HGB CONC 32.1 g/dL (32.0-36.0); Mean Corpuscular Hemoglobin 32.6 pg (27.0-31.0); Mean Platelet Volume 8.1 fL (7.4-10.4); Platelet Count 201 thou/uL (130-400); RBC Distribution Width 14.2 % (11.5-14.5); White Blood Cell (WBC) Count 6.9 thou/uL (4.8-10.8)
[2020-06-23 05:10] LABS: Anion Gap 15 mmol/L (10-20); BUN (Urea Nitrogen) 28 mg/dL (8.4-25.7); Calc. Creatinine Clearance 25 mL/min (70-130); Calcium 9.6 mg/dL (7.8-10.44); Carbon Dioxide 26 mmol/L (23-31); Chloride 95 mmol/L (98-107); Glucose 106 mg/dL (80-115); Potassium 3.8 mmol/L (3.5-5.1); Sodium 132 mmol/L (136-145)
[2020-06-23] MEDS: Sevelamer Carbonate 800 MG TAB PO SCH ×2 (12:24)
[2020-06-23] MEDS: Clindamycin 150 MG CAP PO SCH ×2 (12:24→16:38)
[2020-06-23] MEDS: Apixaban 5 MG TAB PO SCH (12:24)
[2020-06-23] MEDS: Fluticasone Propionate Nasal Spray 16 gm Bottle NASAL SCH (12:25)
[2020-06-23] MEDS ORDERED: Heparin 10,000 UNITS/ 10 ML VIAL ONE (13:34)
[2020-06-23 16:08] VITALS: BP 108/50; TEMP 97.7
== END 2020-06-23 17:35 | disposition home or self-care (01) | DRG 640 ==
LOC: ERS 19:31 → 2SW 21:28 → OBSVTOIN 06-21 01:14 → 2NO 06-22 17:56
PROVIDERS: ADMIT Student in an Organized Health Care Education/Training Program; ATTEND Student in an Organized Health Care Education/Training Program
PROC: 30233N1 Transfusion of Nonautologous Red Blood Cells into Peripheral Vein, Percutaneous Approach (ICD-10-PCS; 2020-06-20)
PROC: 5A1D70Z Performance of Urinary Filtration, Intermittent, Less than 6 Hours Per Day (ICD-10-PCS; principal; 2020-06-21)
DX: E87.70 Fluid overload, unspecified (principal); N18.6 End stage renal disease; K63.2 Fistula of intestine; I48.92 Unspecified atrial flutter; Z20.822 Contact with and (suspected) exposure to COVID-19; D63.1 Anemia in chronic kidney disease; I25.10 Atherosclerotic heart disease of native coronary artery without angina pectoris; E11.22 Type 2 diabetes mellitus with diabetic chronic kidney disease; I48.91 Unspecified atrial fibrillation; E66.9 Obesity, unspecified; I50.9 Heart failure, unspecified; E11.51 Type 2 diabetes mellitus with diabetic peripheral angiopathy without gangrene; E78.5 Hyperlipidemia, unspecified; Z99.2 Dependence on renal dialysis; Z95.5 Presence of coronary angioplasty implant and graft; Z68.35 Body mass index [BMI] 35.0-35.9, adult; Z88.1 Allergy status to other antibiotic agents; Z79.899 Other long term (current) drug therapy; Z79.02 Long term (current) use of antithrombotics/antiplatelets; Z79.82 Long term (current) use of aspirin; Z79.51 Long term (current) use of inhaled steroids; Z86.010 Personal history of colon polyps; Z91.19 Patient's noncompliance with other medical treatment and regimen
CPT/HCPCS: 36415; 36416; 36430; 71045; 74177; 80048; 80053; 82553; 82607; 82746; 83605; 83735; 83880; 84100; 84443; 84484; 85025; 85520; 86850; 86900; 86901; 87040; 87340; 87635; 90935; 93005; 93010; 93306; 94760; G0257; G0378; J1644; J2543; J3490; P9016; Q9967; U0003; U0005

== ENCOUNTER 2020-07-20 15:41 | Outpatient (CLI) | payer MEDICARE, BC, MEDICAID | END 2020-07-20 15:42 | disposition home or self-care (01) | LOC: BICRAD 15:41 | PROVIDERS: ATTEND Family Medicine | DX: J15.9 Unspecified bacterial pneumonia (principal); J98.4 Other disorders of lung | CPT/HCPCS: 71046 ==